=== PATIENT | female | born 1945 | race Caucasian/White ===

== ENCOUNTER 2019-12-22 09:52 | Outpatient (CLI) | payer MEDICARE, SELFPAY ==
[2019-12-22 10:14] LABS: Basophils Percent Auto 0.7 % (0.2-1.2); Eosinophils Absolute Auto 0.2 K/mm3 (0-0.3); Hematocrit 42.6 % (37.0-47.0); Hemoglobin 14.1 g/dL (12.0-15.0); Immature Granulocyte Absolute 0.01 K/mm3 (0.00-0.031); Immature Granulocyte Percent A 0.2 % (0-0.5); Lymphocytes Percent Auto 28.3 % (18.3-44.2); Mean Corpuscular HGB Conc 33.1 g/dl (32-36); Mean Corpuscular Hemoglobin 31.5 pg (26-34); Mean Corpuscular Volume 95.3 fl (80-100); Mean Platelet Volume 10.9 fl (7.4-10.4); Monocytes Absolute Auto 0.4 K/mm3 (0.1-0.6); Monocytes Percent Auto 9.7 % (2.6-8.5); Neutrophils Absolute Auto 2.4 K/mm3 (1.3-6.7); Neutrophils Percent Auto 57.1 % (45.5-73.1); Platelet Count Result 204 k/mm3 (150-375); Red Blood Count 4.47 M/mm3 (4.2-5.4); Red Cell Distribution Width 12.2 % (11.5-14.5); White Blood Count 4.2 K/mm3 (4.5-10.0)
[2019-12-22 10:30] LABS: Alanine Aminotransferase 24 U/L (4-35); Albumin Level 4.1 g/dL (3.5-5.1); Alkaline Phosphatase 75 U/L (38-126); Aspartate Amino Transferase 27 U/L (14-36); Bilirubin,Total 0.6 mg/dL (0.2-1.3); Blood Urea Nitrogen 23 mg/dL (7-17); Calcium 8.7 mg/dL (8.4-10.2); Carbon Dioxide 27 mmol/L (22-30); Chloride 108 mmol/L (98-107); Cholesterol 139 mg/dL (0-200); Estimated Glomerular Filt Rate > 60; Glucose 102 mg/dL (65-105); HDL Direct 43 mg/dL; Potassium 4.5 mmol/L (3.4-5.0); Sodium 141 mmol/L (137-145); Triglycerides 88 mg/dL (<150)
[2019-12-22 10:42] LABS: LDL Cholesterol Direct 72 mg/dL
[2019-12-22 11:01] LABS: Thyroid Stimulating Hormone 0.034 uIU/mL (0.465-4.680)
== END 2019-12-22 09:53 | disposition home or self-care (01) ==
PROVIDERS: PCP Family Medicine; Visit Provider Family Medicine
DX: R41.3 Other amnesia (principal); E78.5 Hyperlipidemia, unspecified
CPT/HCPCS: 36415; 80053; 80061; 82607; 84443; 85025

== ENCOUNTER 2019-12-30 09:34 | Outpatient (CLI) | payer MEDICARE, SELFPAY ==
--- NOTE | ~2019-12-30 | DEXA_ITS ---
Bone Density Report Name: Neli Boswell Age: 74 Sex: Female Ethnicity: White Date of : 1945 Indication: postmenopausal; height loss; cancer; hysterectomy; Referring Provider: Kay, Bakari Pro Study: Bone densitometry was performed. Exam Date: December 30, 2019 Accession number: [id number] Bone Density: Region BMD T-score Z-score Classification AP Spine (L1-L4) 1.048 0.0 2.4 Normal Femoral Neck (Left) 0.588 -2.4 -0.3 Osteopenia Total Hip (Left) 0.852 -0.7 1.1 Normal Total Hip Bilateral Avg 0.853 -0.7 1.1 Normal Femoral Neck (Right) 0.597 -2.3 -0.2 Osteopenia Total Hip (Right) 0.852 -0.7 1.1 Normal World Health Organization criteria for BMD impression classify patients as: Normal (T-score at or above -1.0), Osteopenia (T-score between -1.0 and -2.5), or Osteoporosis (T-score at or below -2.5). 10-year Fracture Risk(1): Major Osteoporotic Fracture 15% Hip Fracture 4.5% Reported Risk Factors: [place] (), Neck BMD=0.588, BMI=28.6 (1) FRAX(R) Version 3.08. Fracture probability calculated for an untreated patient. Fracture probability may be lower if the patient has received treatment. Previous Exams: Region Exam Age BMD T-score BMD Change BMD Change Date g/cm2 vs Baseline vs Previous AP Spine(L1-L4) 12/30/2019 74 1.048 0.0 -0.062(-5.6%)# 0.042(4.2%)# 06/23/2009 63 1.006 -0.4 -0.104(-9.4%)* -0.104(-9.4%)* 10/06/2001 56 1.110 0.6 Total Hip(Left) 12/30/2019 74 0.852 -0.7 -0.050(-5.6%)# -0.019(-2.2%)# 06/23/2009 63 0.871 -0.6 -0.031(-3.5%)* -0.031(-3.5%)* 10/06/2001 56 0.902 -0.3 Total Hip(Right) 12/30/2019 74 0.852 -0.7 -0.040(-4.4%)# -0.041(-4.6%)# 06/23/2009 63 0.893 -0.4 0.002(0.2%) 0.002(0.2%) 10/06/2001 56 0.891 -0.4 *Denotes significance at 95% confidence level, LSC for AP Spine = 0.022 g/cm2, LSC for Total Hip = 0.027 g/cm2 Clinical Information Provided by Patient: Has used the following medications: HRT (i.e. estrogen/hormone therapy) Has the following medical conditions: Cancer, Hysterectomy Patient maximum height was 66 Menopause Age: 49 No regular weight bearing exercise Drinks caffeinated beverages Onset of menses at age 12 Number of children 2 Impression: The patient has low bone mass, based on the Left Femoral Neck T-score. The patient has an estimated ten-year risk of hip fracture of 4.5% and an estimated ten-year risk of major fracture of 15%, bas
== END 2019-12-30 09:35 | disposition home or self-care (01) ==
LOC: ANHIMG 09:39
PROVIDERS: PCP Family Medicine; Visit Provider Family Medicine
DX: Z13.820 Encounter for screening for osteoporosis (principal); M85.89 Other specified disorders of bone density and structure, multiple sites
CPT/HCPCS: 77080

== ENCOUNTER 2020-06-27 09:38 | Outpatient (CLI) | payer MEDICARE, SELFPAY ==
[2020-06-27 11:10] LABS: Alanine Aminotransferase 26 U/L (4-35); Albumin Level 4.1 g/dL (3.5-5.1); Alkaline Phosphatase 68 U/L (38-126); Anion Gap 8 mmol/L (8-16); Aspartate Amino Transferase 25 U/L (14-36); Bilirubin,Total 0.5 mg/dL (0.2-1.3); Blood Urea Nitrogen 16 mg/dL (7-17); Calcium 9.1 mg/dL (8.4-10.2); Carbon Dioxide 27 mmol/L (22-30); Chloride 107 mmol/L (98-107); Estimated Glomerular Filt Rate > 60; Glucose 102 mg/dL (65-105); Phosphorus 4.3 mg/dL (2.5-4.5); Potassium 4.5 mmol/L (3.4-5.0); Sodium 142 mmol/L (137-145)
[2020-06-27 11:22] LABS: Parathyroid Intact 45.9 pg/mL (7.5-53.5)
[2020-06-27 11:39] LABS: Free T4 Free Thyroxine 1.38 ng/mL (0.78-2.19); Vitamin D 25 Hydroxy 56.9 ng/mL
[2020-06-27 11:41] LABS: Thyroid Stimulating Hormone < 0.015 uIU/mL (0.465-4.680)
== END 2020-06-27 09:39 | disposition home or self-care (01) ==
PROVIDERS: Visit Provider Internal Medicine Endocrinology, Diabetes & Metabolism
DX: E03.9 Hypothyroidism, unspecified (principal); M85.80 Other specified disorders of bone density and structure, unspecified site
CPT/HCPCS: 36415; 80053; 82306; 83970; 84100; 84439; 84443; 84481

== ENCOUNTER 2024-03-31 09:04 | Outpatient (CLI) | payer MEDICARE, SELFPAY ==
--- NOTE | 2024-03-31 09:40 | ECG_ITS ---
Test Date: 2024-03-31 09:55:32 Measurements Intervals [place] Rate: 66 P: 28 TN: 201 QRS: -16 QRSD: 85 T: 2 QT: 419 QTc: 439 Interpretive Statements SINUS RHYTHM MODERATE VOLTAGE CRITERIA FOR LVH, CONSIDER NORMAL VARIANT [MEETS CRITERIA IN ONE OF: R(aVL), S(V1), R(V5), R(V5/V6)+S(V1)] No previous ECG available for comparison Electronically Signed On 03-31-2024 14:49:32 CDT by Pelon Christina M.D.
[2024-03-31 09:56] LABS: Basophils Percent Auto 0.8 % (0.2-1.2); Eosinophils Absolute Auto 0.2 K/mm3 (0-0.3); Eosinophils Percent Auto 4.7 % (0-4.4); Hematocrit 44.7 % (37.0-47.0); Hemoglobin 14.9 g/dL (12.0-15.0); Immature Granulocyte Absolute 0.01 K/mm3 (0.00-0.031); Immature Granulocyte Percent A 0.3 % (0-0.5); Lymphocytes Percent Auto 24.9 % (18.3-44.2); Mean Corpuscular HGB Conc 33.3 g/dl (32-36); Mean Corpuscular Hemoglobin 32.1 pg (26-34); Mean Corpuscular Volume 96.3 fl (80-100); Mean Platelet Volume 11.7 fl (7.4-10.4); Monocytes Absolute Auto 0.3 K/mm3 (0.1-0.6); Monocytes Percent Auto 9.4 % (2.6-8.5); Neutrophils Absolute Auto 2.2 K/mm3 (1.3-6.7); Neutrophils Percent Auto 59.9 % (45.5-73.1); Platelet Count Result 190 k/mm3 (150-375); Red Blood Count 4.64 M/mm3 (4.2-5.4); Red Cell Distribution Width 12.3 % (11.5-14.5); White Blood Count 3.6 K/mm3 (4.5-10.0)
[2024-03-31 10:21] LABS: Alanine Aminotransferase 24 U/L (6-35); Albumin Level 4.3 g/dL (3.5-5.1); Alkaline Phosphatase 79 U/L (38-126); Anion Gap 10 mmol/L (4-12); Aspartate Amino Transferase 29 U/L (14-36); Bilirubin,Total 0.7 mg/dL (0.2-1.3); Blood Urea Nitrogen 15 mg/dL (7-17); Calcium 9.2 mg/dL (8.4-10.2); Carbon Dioxide 27 mmol/L (22-30); Chloride 103 mmol/L (98-107); Cholesterol 177 mg/dL (0-200); Estimated Glomerular Filt Rate > 60; Glucose 98 mg/dL (65-110); HDL Direct 56 mg/dL; Potassium 4.4 mmol/L (3.4-5.0); Sodium 140 mmol/L (137-145); Triglycerides 117 mg/dL (<150)
[2024-03-31 10:32] LABS: LDL Cholesterol Direct 89 mg/dL
[2024-03-31 10:39] LABS: Free T4 Free Thyroxine 1.37 ng/mL (0.78-2.19)
[2024-03-31 10:51] LABS: Thyroid Stimulating Hormone 0.172 uIU/mL (0.465-4.680)
== END 2024-03-31 09:05 | disposition home or self-care (01) ==
LOC: ANHLAB 09:06
PROVIDERS: PCP Family Medicine; Visit Provider Student in an Organized Health Care Education/Training Program
DX: E78.5 Hyperlipidemia, unspecified (principal); Z01.818 Encounter for other preprocedural examination; E03.9 Hypothyroidism, unspecified; G47.00 Insomnia, unspecified; R53.83 Other fatigue
CPT/HCPCS: 36415; 80053; 80061; 84439; 84443; 85025; 93005

== ENCOUNTER 2024-04-19 18:07 | Observation (INO) | payer MEDICARE, SELFPAY ==
--- NOTE | ~2024-04-19 | XR_ITS ---
Portable chest x-ray Comparison: 07/09/2013. Clinical History: Left TKR Findings: Lungs are clear, without focal consolidation or pleural effusion. Cardiomediastinal silho uette is stable. Bones and soft tissues are unremarkable. Impression: Clear lungs. Reviewed, dictated and finalized at location . Impression: Clear lungs.
--- NOTE | ~2024-04-19 | XR_ITS ---
Supine and upright views of the abdomen Clinical history: Nausea and vomiting Findings: Bowel gas pattern is nonspecific. No evidence for obstruction or free air. No abnormal mass lesion or calcification is seen. Osseous structures are intact. Impression: No significant abnormality is seen. Reviewed, dictated and finalized at [facility]. Impression: No significant abnormality is seen.
--- NOTE | ~2024-04-19 | US_ITS ---
EXAMINATION: US venous doppler [facility] DATE: 04/20/2024 16:39 INDICATION: Lower limb pain and swelling. TECHNIQUE: Grayscale ultrasound images without and with compression and Doppler ultrasound images of the left lower extremity veins were obtained. COMPARISON: None. FINDINGS: The visualized portions of left common femoral vein, profunda (deep) femoral vein, femoral vein, popl iteal vein, peroneal veins, posterior tibial veins, and greater saphenous vein outflow are patent. IMPRESSION: 1. No deep venous thrombosis. Reviewed, dictated and finalized at location A.
[2024-04-19 18:07] VITALS: BP 153/74; PULSE 84; RESP 18; TEMP 36.4; O2SAT 97
--- NOTE | 2024-04-19 21:40 | ED.NAVMDI ---
HPI - Nausea/Vomiting/Diarrhea General Chief complaint: Nausea/Vomiting/Diarrhea <Yarely Sinha PA-C - Last Filed: 04/20/24 02:34> Stated complaint: vomiting-recent knee surgery <Yarely Sinha PA-C - Last Filed: 04/20/24 02:34> Time Seen by Provider: 04/19/24 21:40 <Yarely Sinha PA-C - Last Filed: 04/20/24 02:34> Focused HPI: This is a 78 year old female that presents to the ER for nausea and vomiting. Reports she has not been able to keep anything down since this afternoon. Reports she had a knee replacement a couple of days ago at [facility] with Dr. Stiven Brody. She has not had a bowel movement since surgery. Reports subjective fevers. GENERAL: Uncomfortable-appearing, well-nourished, actively vomiting HEAD: Normocephalic, atraumatic. CHEST: Clear to auscultation. ?No respiratory distress. HEART: Regular rate and rhythm.? NEURO: ?Alert and oriented x3. Patient screened in triage and initial orders placed.? ?Additional care and disposition to be based upon?diagnostic testing and treatment. <Yarely Sinha PA-C - Last Filed: 04/20/24 02:34> Focused HPI: This is a 78 year old female that presents to the ER for nausea and vomiting. Reports she has not been able to keep anything down since this afternoon. Reports she had a knee replacement a couple of days ago at [facility] with Dr. Stiven Brody. She has not had a bowel movement since surgery. Reports subjective fevers. denies any abdominal pain. Patient states that she took her Happy pills in the morning on an empty stomach and is concerned that is what precipitated her nausea and vomiting. Patient tried to take an oral Zofran pill prior to arrival but ended up vomiting the pill back up. GENERAL: Uncomfortable-appearing, well-nourished, actively vomiting HEAD: Normocephalic, atraumatic. CHEST: Clear to auscultation. ?No respiratory distress. HEART: Regular rate and rhythm.? NEURO: ?Alert and oriented x3. Patient screened in triage and initial orders placed.? ?Additional care and disposition to be based upon?diagnostic testing and treatment. <Yeison Starkey MD - Last Filed: 04/20/24 01:34> Related Data Home medications: Home Medications Medication Instructions Recorded Confirmed levothyroxine 25 mcg tablet 25 mcg PO DAILY 06/26/23 04/20/24 (Synthroid) melatonin 3 mg capsule 3 mg PO QHS 10/11/23 04/20/24 celecoxib 200 mg capsule 200 mg PO BID 04/20/24 04/20/24 magnesium 200 mg tablet 200 mg PO HS 04/20/24 04/20/24 ondansetron HCl 4 mg tablet 4 mg PO Q4H PRN Nausea And Vomiting 04/20/24 04/20/24 oxycodone 5 mg tablet 5 mg PO Q4H PRN Pain 04/20/24 04/20/24 <Yarely Sinha PA-C - Last Filed: 04/20/24 02:34> Allergies/Adverse reactions: Allergies Allergy/AdvReac Type Severity Reaction Status Date / Time milk Allergy Unknown Headache Verified 04/19/24 18:07 <Yarely Sinha PA-C - Last Filed: 04/20/24 02:34> Review of Systems Review of Systems: All systems are reviewed and are negative unless stated otherwise in the HPI. <Yeison Starkey MD - Last Filed: 04/20/24 01:34> PMFSH Past Medical History Medical History: Medical History Arthritis Bilateral knee pain Breast cancer Diverticulitis large intestine Gastric ulcer GERD (gastroesophageal reflux disease) History of breast cancer Hyperlipidemia Hypothyroid Insomnia Osteopenia Thyroid disorder <Yarely Sinha PA-C - Last Filed: 04/20/24 02:34> Family History Family History: Family History Mother Diabetes mellitus Hypertension Stomach cancer Father Heart disease Grandparent Heart disease Grandparent Diabetes mellitus Heart disease <Yarely Sinha PA-C - Last Filed: 04/20/24 02:34> Social History Social History: Social History Smoking status: Form
[2024-04-19] MEDS: ONDANSETRON INJ 4 MG/2 ML VIAL IV PUSH ×2 (21:46→23:30)
[2024-04-19 21:55] LABS: Basophils Percent Auto 0.1 % (0.2-1.2); Eosinophils Percent Auto 0.4 % (0-4.4); Hematocrit 38.1 % (37.0-47.0); Hemoglobin 12.6 g/dL (12.0-15.0); Immature Granulocyte Absolute 0.03 K/mm3 (0.00-0.031); Immature Granulocyte Percent A 0.4 % (0-0.5); Lymphocytes Percent Auto 8.9 % (18.3-44.2); Mean Corpuscular HGB Conc 33.1 g/dl (32-36); Mean Corpuscular Hemoglobin 32.3 pg (26-34); Mean Corpuscular Volume 97.7 fl (80-100); Mean Platelet Volume 11.3 fl (7.4-10.4); Monocytes Absolute Auto 0.4 K/mm3 (0.1-0.6); Monocytes Percent Auto 5.5 % (2.6-8.5); Neutrophils Absolute Auto 6.6 K/mm3 (1.3-6.7); Neutrophils Percent Auto 84.7 % (45.5-73.1); Platelet Count Result 205 k/mm3 (150-375); Red Cell Distribution Width 12.8 % (11.5-14.5); White Blood Count 7.8 K/mm3 (4.5-10.0)
[2024-04-19 22:06] LABS: Alanine Aminotransferase 34 U/L (6-35); Albumin Level 4.4 g/dL (3.5-5.1); Alkaline Phosphatase 119 U/L (38-126); Anion Gap 12 mmol/L (4-12); Aspartate Amino Transferase 54 U/L (14-36); Bilirubin,Total 0.8 mg/dL (0.2-1.3); Blood Urea Nitrogen 15 mg/dL (7-17); Calcium 8.9 mg/dL (8.4-10.2); Carbon Dioxide 25 mmol/L (22-30); Chloride 99 mmol/L (98-107); Estimated CRCL calculation 60 ml/min; Estimated Glomerular Filt Rate > 60; Glucose 122 mg/dL (65-110); Lipase 43 U/L (23-300); Magnesium 2.3 mg/dL (1.6-2.3); Potassium 4.4 mmol/L (3.4-5.0); Sodium 136 mmol/L (137-145)
[2024-04-19 22:07] LABS: Lactic Acid Reflex 1.5 mmol/L (0.7-2.0)
[2024-04-19 23:00] VITALS: PULSE 93; RESP 15; O2SAT 100
[2024-04-19 23:01] VITALS: BP 165/74; PULSE 82; RESP 20; O2SAT 98
--- NOTE | 2024-04-19 23:07 | ECG_ITS ---
Test Date: 2024-04-19 23:27:26 Measurements Intervals [place] Rate: 80 P: 70 IN: 193 QRS: 2 QRSD: 84 T: 22 QT: 386 QTc: 446 Interpretive Statements SINUS RHYTHM POSSIBLE LEFT ATRIAL ENLARGEMENT [-0.1mV P WAVE IN V1/V2] POSSIBLE LEFT VENTRICULAR HYPERTROPHY [VOLTAGE CRITERIA PLUS LAE OR QRS WIDENING] ABNORMAL ECG Compared to ECG 03/31/2024 09:55:32 No significant changes Electronically Signed On 04-21-2024 07:14:33 CDT by Denny Hines M.D.
[2024-04-19 23:15] VITALS: PULSE 79; RESP 13; O2SAT 98
[2024-04-19 23:16] VITALS: BP 153/66; PULSE 78; RESP 14; O2SAT 95
[2024-04-19] MEDS: SODIUM CHLORIDE 0.9% IV 1,000 ML 999 ML IV CONT (23:30)
[2024-04-20] MEDS: METOCLOPRAMIDE HCL INJ 10 MG/2 ML VIAL IV PUSH (00:36)
[2024-04-20] MEDS: MORPHINE SULFATE (*CRX) 2 MG/ML INJ IV PUSH (00:36)
--- NOTE | 2024-04-20 01:14 | PM.IMHP ---
H&P: HPI History of Present Illness Date/Time: 04/20/24 01:14 Chief Complaint: n/v Narrative: This is a 78-year-old female with past medical history significant for DJD patient is status post total left knee replacement comes to the hospital due to intractable pain nausea vomiting leg swelling. Patient denies any shortness of breath, cough, fevers, rigors, chills. In emergency room patient received supportive medication however unable to tolerate p.o. has been placed in observation for further evaluation management and treatment. Portable chest x-ray Comparison: 07/09/2013. Clinical History: Left TKR Findings: Lungs are clear, without focal consolidation or pleural effusion. Cardiomediastinal silhouette is stable. Bones and soft tissues are unremarkable. Impression: Clear lungs. Supine and upright views of the abdomen Clinical history: Nausea and vomiting Findings: Bowel gas pattern is nonspecific. No evidence for obstruction or free air. No abnormal mass lesion or calcification is seen. Osseous structures are intact. Impression: No significant abnormality is seen. Review of Systems Review of Systems: Nausea/ vomiting/ intractable pain PMFSH Past Medical History Medical History Arthritis Bilateral knee pain Breast cancer Diverticulitis large intestine Gastric ulcer GERD (gastroesophageal reflux disease) History of breast cancer Hyperlipidemia Hypothyroid Insomnia Osteopenia Thyroid disorder Family History Family History Mother Diabetes mellitus Hypertension Stomach cancer Father Heart disease Grandparent Heart disease Grandparent Diabetes mellitus Heart disease Social History Social History Smoking status: Former smoker Second hand tobacco smoke exposure: No Additional smoking assessment comments: quit approximately 60years ago Alcohol intake: current Drinks per week: 7 Alcohol use details: 1 glass of wine per day Substance use: never Substance use type: does not use Do You Feel Safe in your Home?: Yes Lack of Transportation: No Lack of Food: Never True Current Housing: I Have Housing Concerned About Future Housing: No Difficulty Paying Gas/Electric Bills: No Difficulty Paying for Meds: No Currently Unemployed: No Education: High School Diploma/GED Difficulty w/ Childcare or Family Care: No Spiritual care concerns: No Meds Home Medications and Allergies Home Medications Medication Instructions Recorded Confirmed Type levothyroxine 25 mcg tablet 25 mcg PO DAILY 06/26/23 04/20/24 History (Synthroid) omeprazole 40 mg capsule,delayed 40 mg PO DAILY 1 month #30 caps 10/10/23 04/20/24 Rx release atorvastatin 40 mg tablet 40 mg PO DAILY #90 tabs 10/11/23 04/20/24 Rx melatonin 3 mg capsule 3 mg PO QHS 10/11/23 04/20/24 History celecoxib 200 mg capsule 200 mg PO BID 04/20/24 04/20/24 History magnesium 200 mg tablet 200 mg PO HS 04/20/24 04/20/24 History oxycodone 5 mg tablet 5 mg PO Q4H PRN Pain 04/20/24 04/20/24 History cefdinir 300 mg capsule 300 mg PO Q12H #2 caps 04/21/24 Rx ondansetron HCl 4 mg tablet 4 mg PO Q4H PRN Nausea And 04/21/24 04/20/24 Rx Vomiting #30 tabs Allergies Allergy/AdvReac Type Severity Reaction Status Date / Time milk Allergy Unknown Headache Verified 04/19/24 18:07 Vital Signs Vital Signs - 24 hr 04/19/24 18:07 04/19/24 23:00 04/19/24 23:01 Temperature 97.6 F Pulse Rate 84 93 82 Respiratory Rate 18 15 20 Blood Pressure 153/74 H 165/74 H Pulse Oximetry 97 100 98 Oxygen Delivery Room Air 04/19/24 23:15 04/19/24 23:16 Temperature Pulse Rate 79 78 Respiratory Rate 13 14 Blood Pressure 153/66 H Pulse Oximetry 98 95 Oxygen Delivery Exam Narrative: patient is in stretcher Const
--- NOTE | 2024-04-20 02:28 | ADMGEN ---
This patient, Neli Boswell, was admitted to Medical Room 245-. Patient/family oriented to hospital policies and general routines including ID bracelet, bed and alarms, visiting hours, pain management, procedures, bathroom and other care routines, personal items, smoking policy, room service/diet, and visiting hours. Information on how to activate the Rapid Response Team has been discussed. Patient/Family are encouraged to report perceived risks to care and to ask questions if they do not understand what they are told or what they should do.
[2024-04-20 02:45] VITALS: BMI 27.3
[2024-04-20 03:02] VITALS: BP 161/64; PULSE 87; RESP 16; TEMP 36.4; O2SAT 95
[2024-04-20 06:30] VITALS: BP 142/59; PULSE 91; RESP 16; TEMP 36.4; O2SAT 97
--- NOTE | 2024-04-20 07:07 | PM.IMPN ---
Progress Note: A&P Assessment and Plan (1) Acute nausea with nonbilious vomiting: Code(s): R11.2 - Nausea with vomiting, unspecified Status: Acute Assessment and Plan: likely secondary to pain medication vs constipation vs UTI? vs GERD IV fluids at 100 ml per hour Zofran prn but does not feel this is working, will trial Compazine KUB is not concerning for obstruction, impaction Regular diet as tolerated Protonix BID (2) Status post total left knee replacement: Code(s): Z96.652 - Presence of left artificial knee joint Status: Acute Assessment and Plan: s/p total left knee replacement at [facility] Surgical island dressing is in place. Clean, dry and intact PRN pain medications with Vardaman. Can try tramadol to see if this does not cause as much nausea PT/OT consulted, appreciate recs She has quite a bit of ecchymosis and edema to her left thigh. Venous US ruled out DVT. Monitor H/H (3) Urinary (tract) obstruction: Code(s): N13.9 - Obstructive and reflux uropathy, unspecified Status: Acute Assessment and Plan: Urinary tract infection with nitrates and +4 bacteria on U/A. She is also nauseated, dizzy, and feels confused. Will give Rocephin and transition to cefdinir urine culture added Plan DVT prophylaxis: Glycemic control: na Code Status: full code Disposition: 78-year-old female recently had a left total knee replacement. She comes in with nausea, vomiting and unable to keep p.o. intake down. She is getting IV fluids and IV antibiotic for possible UTI. UA had nitrates and +4 bacteria. Medication reconciliation obtained via the following: Nurse completed on admission The file time of this note does not necessarily represent the time the patient was seen. Subjective Date/time seen: 04/20/24 07:07 Interval history: This is a 78-year-old female with a past medical history significant for degenerative disc disease, arthritis, breast cancer, hyperlipidemia, hypothyroidism, GERD with gastric ulcer, and recent total left knee replacement who presented to the emergency room with complaints of nausea. The patient states since she has returned home from her total knee replacement she has had nausea and has not been unable to keep fluids or food down. She states she had her knee replacement at [facility] requiring 1 overnight stay which was uneventful. She is unsure if she had a urinary catheter placed for her surgery. It is unclear if the nausea is related to her pain medication versus underlying UTI.. She states that she has had Vardaman in the past it caused similar symptoms. She also reports being dizzy and having difficulty finding her words which she attributes to the stress of being in the hospital. Her UA did have positive nitrates and +4 bacteria. Her left knee is swollen with surgical dressing in place which is clean dry and intact. She does have extensive ecchymosis throughout her left thigh. She denies fever but reports subjective chills. She states she feels dry. She is thirsty in her mouth feels like cotton. She denies headache, chest pain, shortness of breath, abdominal pain, or dysuria. Review of Systems Review of Systems: Nausea/ vomiting/ intractable pain All systems reviewed & are unremarkable except as noted in HPI and below Exam Narrative: General: appears as though she does not feel well, appears dry, appears stated age. HEENT: normocephalic, atraumatic. Mucous membranes moist. EOMI, PERRLA, bilateral sclera anicteric, no conjunctival injection. Neck supple without JVD, lymphadenopathy, or bruit. Respiratory: clear to auscultation bilaterally. No rales/rhonic/wheezes. Cardiovascular: Regular rate and rhythm, normal S1-S2 upon auscultation. No murmurs, rubs, or clicks. PMI is nondisplaced, capillary refill less
[2024-04-20 07:11] LABS: Add Urine Microscopic? YES; Appearance Urine Cloudy (Clear); Bacteria Urine 4+ /hpf; Bilirubin Urine Negative (Negative); Blood Urine Negative (Negative); Color Urine Yellow (Yellow); Glucose Urine UA Negative (Negative); Ketones Urine Negative (Negative); Leukocyte Esterase Ur Negative LEU/UL (Negative); Nitrate Urine Positive (Negative); Non Pathogenic Casts 0-2; Protein Urine Negative (Negative); RBC Urine 0-2 /hpf (0-2); Specific Grav Ur 1.013 (1.001-1.035); Squamous Epithelial Cell Urine None Seen /hpf (Few); Urobilinogen Urine 0.2 mg/dL (<2.0); WBC Urine 0-5 /hpf (0-3); pH Urine 6.5 (5.0-9.0)
[2024-04-20] MEDS: CEFDINIR 300 MG CAPSULE PO (09:50)
[2024-04-20] MEDS: ATORVASTATIN 40 MG TABLET PO (09:50)
[2024-04-20] MEDS: PANTOPRAZOLE 40 MG TABLET PO ×2 (09:50→17:01)
[2024-04-20] MEDS: oxyCODONE HCL (*CRX) 5 MG TAB IR PO (09:55)
[2024-04-20 10:08] VITALS: O2SAT 95
[2024-04-20] MEDS: ONDANSETRON INJ 4 MG/2 ML VIAL IV PUSH (12:00)
[2024-04-20] MEDS: SODIUM CHLORIDE 0.9% IV 1,000 ML 100 ML IV CONT (13:33)
[2024-04-20 14:00] VITALS: BP 140/60; PULSE 88; RESP 16; TEMP 36.5; O2SAT 96
[2024-04-20] MEDS: BELLADONNA ALK/PHENOB ELIX 10 ML, MAG HYDROX/ALUMINUM HYD/SIMETH 30 ML, LIDOCAINE HCL 2... PO (14:41)
[2024-04-20] MEDS: ENOXAPARIN 40 MG/0.4 ML SYRINGE SUB-Q (14:46)
[2024-04-20 20:32] VITALS: BP 149/61; PULSE 71; RESP 16; TEMP 36.4; O2SAT 94
[2024-04-20] MEDS: MAGNESIUM OXIDE 200 MG TABLET PO (21:10)
[2024-04-20] MEDS: MELATONIN 3 MG TABLET PO (21:10)
[2024-04-21] MEDS: SODIUM CHLORIDE 0.9% IV 1,000 ML 100 ML IV CONT (00:42)
[2024-04-21 05:17] VITALS: BP 137/64; PULSE 83; RESP 16; TEMP 36.4; O2SAT 93
[2024-04-21] MEDS: LEVOTHYROXINE SODIUM 25 MCG TABLET PO (05:54)
[2024-04-21] MEDS: ATORVASTATIN 40 MG TABLET PO (08:48)
[2024-04-21] MEDS: ENOXAPARIN 40 MG/0.4 ML SYRINGE SUB-Q (08:49)
[2024-04-21] MEDS: PANTOPRAZOLE 40 MG TABLET PO (08:49)
[2024-04-21 09:56] LABS: Basophils Percent Auto 0.5 % (0.2-1.2); Eosinophils Absolute Auto 0.2 K/mm3 (0-0.3); Eosinophils Percent Auto 3.8 % (0-4.4); Hematocrit 34.6 % (37.0-47.0); Immature Granulocyte Absolute 0.03 K/mm3 (0.00-0.031); Immature Granulocyte Percent A 0.5 % (0-0.5); Mean Corpuscular HGB Conc 31.8 g/dl (32-36); Mean Corpuscular Volume 100.6 fl (80-100); Mean Platelet Volume 11.3 fl (7.4-10.4); Monocytes Absolute Auto 0.4 K/mm3 (0.1-0.6); Monocytes Percent Auto 6.7 % (2.6-8.5); Neutrophils Percent Auto 69.5 % (45.5-73.1); Platelet Count Result 206 k/mm3 (150-375); Red Blood Count 3.44 M/mm3 (4.2-5.4); Red Cell Distribution Width 13.2 % (11.5-14.5); White Blood Count 5.8 K/mm3 (4.5-10.0)
[2024-04-21 10:13] LABS: Magnesium 2.1 mg/dL (1.6-2.3); Phosphorus 2.8 mg/dL (2.5-4.5)
[2024-04-21 10:14] LABS: Alanine Aminotransferase 21 U/L (6-35); Albumin Level 3.7 g/dL (3.5-5.1); Alkaline Phosphatase 86 U/L (38-126); Anion Gap 10 mmol/L (4-12); Aspartate Amino Transferase 29 U/L (14-36); Bilirubin,Total 0.7 mg/dL (0.2-1.3); Blood Urea Nitrogen 12 mg/dL (7-17); Calcium 8.4 mg/dL (8.4-10.2); Carbon Dioxide 25 mmol/L (22-30); Chloride 102 mmol/L (98-107); Estimated CRCL calculation 53 ml/min; Estimated Glomerular Filt Rate > 60; Glucose 136 mg/dL (65-110); Sodium 137 mmol/L (137-145)
--- NOTE | 2024-04-21 11:34 | PM.DS ---
DS: Admitting Diagnosis Discharge Date 04/21 Admitting Diagnosis nausea DS: Discharge Diagnosis Discharge Diagnosis (1) Acute nausea with nonbilious vomiting: Code(s): R11.2 - Nausea with vomiting, unspecified Status: Acute Assessment and Plan: likely secondary to pain medication vs constipation vs UTI? vs GERD IV fluids at 100 ml per hour Zofran prn but does not feel this is working, will trial Compazine KUB is not concerning for obstruction, impaction Regular diet as tolerated Protonix BID (2) Status post total left knee replacement: Code(s): Z96.652 - Presence of left artificial knee joint Status: Acute Assessment and Plan: s/p total left knee replacement at [facility] Surgical island dressing is in place. Clean, dry and intact PRN pain medications with Nicholson. Can try tramadol to see if this does not cause as much nausea PT/OT consulted, appreciate recs She has quite a bit of ecchymosis and edema to her left thigh. Venous US ruled out DVT. Monitor H/H (3) Urinary (tract) obstruction: Code(s): N13.9 - Obstructive and reflux uropathy, unspecified Status: Acute Assessment and Plan: Urinary tract infection with nitrates and +4 bacteria on U/A. She is also nauseated, dizzy, and feels confused. Will give Rocephin and transition to cefdinir urine culture added Plan DVT prophylaxis: Glycemic control: na Code Status: full code Disposition: 78-year-old female recently had a left total knee replacement. She comes in with nausea, vomiting and unable to keep p.o. intake down. She is getting IV fluids and IV antibiotic for possible UTI. UA had nitrates and +4 bacteria. Medication reconciliation obtained via the following: Nurse completed on admission The file time of this note does not necessarily represent the time the patient was seen. DS: Summary Hospital Course Reason for hospitalization: nausea, uti Hospital Course: This is a 78-year-old female with a past medical history significant for degenerative disc disease, arthritis, breast cancer, hyperlipidemia, hypothyroidism, GERD with gastric ulcer, and recent total left knee replacement who presented to the emergency room with complaints of nausea. The patient states since she has returned home from her total knee replacement she has had nausea and has not been unable to keep fluids or food down. She states she had her knee replacement at [facility] requiring 1 overnight stay which was uneventful. She is unsure if she had a urinary catheter placed for her surgery. It is unclear if the nausea is related to her pain medication versus underlying UTI.. She states that she has had Nicholson in the past it caused similar symptoms. She also reports being dizzy and having difficulty finding her words which she attributes to the stress of being in the hospital. Her UA did have positive nitrates and +4 bacteria. Her left knee is swollen with surgical dressing in place which is clean dry and intact. She does have extensive ecchymosis throughout her left thigh. She denies fever but reports subjective chills. She states she feels dry. She is thirsty in her mouth feels like cotton. She denies headache, chest pain, shortness of breath, abdominal pain, or dysuria. She received IV fluids, zofran, and GI cocktail. There were also concerns for UTI so she was started on antibiotics. Nausea was thought to be secondary to gastritis from recent aspirin for DVT prophylaxis vs side effect of pain medication vs UTI. She stopped taking the pain medication, took the GI cocktail, and was given antibiotics. It is unclear what worked but she is feeling well today and is ready to go home. Overall she did well and will discharge in stable condition with home health for incision checks and PT/OT for continued strengthening aft
[2024-04-21] MEDS: ACETAMINOPHEN 500 MG TABLET 1000 MG PO (12:27)
--- NOTE | 2024-04-21 13:00 | PCPTNOTE ---
On 04/21/24, the student, [Shira Travis], provided care and completed [facility] documentation on this patient. I have reviewed the student's documentation and agree with the findings.
--- NOTE | 2024-04-21 13:55 | PC.NURSE ---
On 04/21/24, the students, [Lainey Cummings and Masood Castellano], provided care and completed [facility] documentation on this patient. I have reviewed the student's documentation and agree with the findings.
== END 2024-04-21 13:45 | disposition home health service (06) ==
LOC: ANHED 04-20 01:34 → ANH2MED 04-20 06:57
PROVIDERS: Nurse Practitioner Acute Care; Admitting Provider Internal Medicine; Emergency Provider Emergency Medicine; PCP Family Medicine; Visit Provider Family Medicine
DX: R11.2 Nausea with vomiting, unspecified (principal); N13.9 Obstructive and reflux uropathy, unspecified; M79.89 Other specified soft tissue disorders; Z96.652 Presence of left artificial knee joint; E03.9 Hypothyroidism, unspecified; K21.9 Gastro-esophageal reflux disease without esophagitis; Z85.3 Personal history of malignant neoplasm of breast
CPT/HCPCS: 36415; 71045; 74018; 80053; 81001; 83605; 83690; 83735; 84100; 85025; 87086; 93005; 93971; 96361; 96365; 96375; 96376; 97161; 97165; 99285; A9270; G0378; J0696; J1650; J2270; J2405; J2765; J7030

== ENCOUNTER 2024-05-20 10:41 | Outpatient (CLI) | payer MEDICARE, SELFPAY ==
--- NOTE | ~2024-05-20 | XR_ITS ---
XR humerus RT Ordering provider: Monica Kim, [place] History: . RIGHT HUMERUS BONE SHAFT PAIN, FALL 2 WKS AGO . Comparison: None. FINDINGS: BONES: No acute fracture or dislocation. JOINT SPACES: Normal. SOFT TISSUES: Normal. IMPRESSION: No acute osseous abnormality right humerus. Reviewed, dictated and finalized at location A.
== END 2024-05-20 10:42 | disposition home or self-care (01) ==
PROVIDERS: PCP Family Medicine; Visit Provider Chiropractor
DX: M79.631 Pain in right forearm (principal)
CPT/HCPCS: 73060

== ENCOUNTER 2024-05-21 15:41 | Inpatient (IN) | payer MEDICARE, SELFPAY ==
[2024-05-21] VITALS (7 sets, daily range): BP systolic 161–183; BP diastolic 70–101; PULSE 86–97; RESP 14–20; TEMP 36.4; O2SAT 97–100
--- NOTE | ~2024-05-21 | MR_ITS ---
Procedure: MR brain/brain stem wo con Ordering provider: Vonda Bowman History: . rule out TIA/CVA . Comparison: None Technique: MRI brain was performed without contrast. FINDINGS: BONES: Normal. CRANIOCERVICAL JUNCTION: normal. PITUITARY: Normal. MAJOR INTRACRANIAL VESSELS: Normal flow void. OPTIC NERVES AND CRANIAL NERVES VII AND VIII COMPLEXES: Grossly normal. BRAIN PARENCHYMA AND CSF SPACES: Mild nonspecific T2 white matter hyperintensities are seen in a nicola ateral periventricular and deep white matter distribution which are likely related to chronic ischemi c small vessel disease. Mild diffuse cortical atrophy. The brainstem and cerebellum are normal. No ac standing rock or chronic intracranial hemorrhage. No extra axial fluid collections. Diffusion weighted and ADC mapping images reveal no recent ischemia. No midline shift or mass effect. PARANASAL SINUSES: Normal. MASTOIDS: Normal SUPERFICIAL/SURROUNDING SOFT TISSUES: Normal. IMPRESSION: 1. Mild leukoaraiosis. 2. No acute intracranial findings. Reviewed, dictated and finalized at location A.
--- NOTE | ~2024-05-21 | CT_ITS ---
EXAMINATION: CT abdomen pelvis w con DATE: 05/21/2024 18:27 INDICATION: n/v, pain TECHNIQUE: Computed tomography (CT) of the abdomen and pelvis was performed with 100 mL Omnipaque-350 intravenous contrast. Automated exposure control and iterative reconstruction technique were employe d. The dose-length product was 514.94 mGy-cm. COMPARISON: None. FINDINGS: Lower thorax: Minimal bibasilar atelectasis/scar. Calcified right lower lobe granuloma. Aortic valve and coronary artery calcifications. Liver: Normal. Biliary/Gallbladder: Gallbladder is normal. No bile duct dilation. Pancreas: 8mm cystic lesion in the tail the pancreas. Spleen: Normal. Adrenals:No mass. Kidneys: No suspicious mass, obstructing stone, or hydronephrosis. Simple right midpole cyst and nelia tional subcentimeter hypodensities, too small to characterize but also likely represent cysts. GI tract: Small hiatal hernia. Mild distal esophageal and gastric wall edema. No small or large bowel dilation. Normal appendix. Diverticulosis without diverticulitis. Mesentery/Peritoneum: No ascites, mass, or free air. Retroperitoneum: No mass. Atherosclerotic abdominal aortic and/or arterial calcifications. Pelvis: Moderately distended urinary bladder. Absent uterus. Ovaries not confidently identified. Soft Tissues: Soft tissues and body wall unremarkable. Bones: No acute osseous finding. Grade 1 anterolisthesis at L4-5 with moderate central canal stenosi s IMPRESSION: Mild esophagitis/gastritis. 8 mm pancreatic tail cyst, recommend follow-up in 2 years to determine stability. Reviewed, dictated and finalized at location K. IMPRESSION: Mild esophagitis/gastritis. 8 mm pancreatic tail cyst, recommend follow-up in 2 years to determine stabilit y.
--- NOTE | ~2024-05-21 | CT_ITS ---
CTA brain carotid Ordering provider: Vonda Bowman APRN History: . Dizziness . Comparison: Technique: CT angiogram head and neck was performed following timed intravenous injection of contrast . Thin slice axial images and reformatted coronal images were obtained. Three dimensional reformatted images of the brain were also obtained using a [employer] workstation. Radiation reduction technique utilized. The dose-length product was 931.57 mGy-cm. 100 mL Omnipaque 3 50 was given IV. FINDINGS: HEAD: --ANTERIOR AND MIDDLE CEREBRAL ARTERIES AND BRANCHES: Normal caliber and contour. --INTERNAL CAROTID ARTERIES: Severe atheromatous disease with severe stenosis of the right supraclino id carotid artery. --BASILAR ARTERY AND BRANCHES: Small caliber and normal contour. No atheromatous disease. Left vertebral artery is demonstrated the right is markedly attenuated. --POSTERIOR CEREBRAL ARTERIES: Normal caliber and contour --POSTERIOR COMMUNICATING ARTERIES: Both visualized and continues as posterior cerebral arteries --ANEURYSM: None visualized. --BRAIN: Please refer to report of CT head performed the same day. --BONES AND SUPERFICIAL SOFT TISSUES: Please refer to report of CT head performed the same day. --PARANASAL SINUSES AND MASTOIDS: Please refer to report of CT head done the same day. NECK: --RIGHT CERVICAL CAROTID SYSTEM: Mild atheromatous disease of the carotid bulb and proximal internal carotid artery without significant stenosis. Percent stenosis per NASCET criteria is 20% No carotid dissection. Otherwise, no significant atheromatous disease or stenosis of the cervical carotid system . --LEFT CERVICAL CAROTID SYSTEM: Mild atheromatous disease of the carotid bulb and proximal internal c arotid artery without significant stenosis. Percent stenosis per NASCET criteria is 20%. No carotid dissection. Otherwise, no significant atheromatous disease or stenosis of the cervical carotid system. --VERTEBRAL ARTERIES: Dominant left vertebral artery with bilateral small caliber of the right. . --VISUALIZED AORTIC ARCH AND BRANCHING VESSELS: Mild atheromatous disease but no significant stenosis . --SOFT TISSUES: Multinodular thyroid is seen in the enlarged left thyroid lobe. Multiple small nodule s are seen in the right lobe of the thyroid. --CERVICAL SPINE: Age appropriate degenerative changes. Minimal anterolisthesis at the level of L4-5. IMPRESSION: CTA neck. Percent stenosis per NASCET criteria is 20% bilaterally. Markedly attenuated right verteb ral artery. No evidence of intracranial vascular occlusion seen. Significant stenosis of the right internal carotid artery in the supraclinoid area. Reviewed, dictated and finalized at location A. IMPRESSION: CTA neck. Percent stenosis per NASCET criteria is 20% bilaterally. Markedly a ttenuated right vertebral artery. No evidence of intracranial vascular occlusion seen. Significant stenosis of the right internal carotid artery in the supraclinoid a cece.
--- NOTE | ~2024-05-21 | CT_ITS ---
EXAMINATION: CT brain wo con DATE: 05/21/2024 22:24 INDICATION: vertigo . TECHNIQUE: Computed tomography (CT) of the head was performed without intravenous contrast. The mA wa s adjusted according to patient size. Iterative reconstruction technique was employed. The dose-lengt h product was 681.00 mGy-cm. COMPARISON: None. FINDINGS: No acute intracranial hemorrhage or extra-axial fluid collection. No hydrocephalus, mass, or herniation. No acute ischemic infarct. Unremarkable dural venous sinus attenuation. No acute osseous abnormality. The aerated spaces are clear. Mild atrophy and chronic white matter change. Atherosclerotic intracranial calcification. Old bilater al lacunar infarcts. Bilateral lens replacements. IMPRESSION: No acute intracranial process. Reviewed, dictated and finalized at location K.
--- NOTE | 2024-05-21 15:58 | ED.NAVMDI ---
HPI - Nausea/Vomiting/Diarrhea General Chief complaint: Nausea/Vomiting/Diarrhea <Reyna Kidd PA-C - Last Filed: 05/21/24 19:00> Stated complaint: CHRONIC VOMITING <Reyna Kidd PA-C - Last Filed: 05/21/24 19:00> Time Seen by Provider: 05/21/24 15:58 <Reyna Kidd PA-C - Last Filed: 05/21/24 19:00> Focused HPI: Patient is a 78 y/o female who presents to the ED with c/o N/V. Reports she developed vomiting around 7pm yesterday. States she has been unable to keep down any food or drink. Was seen in urgent care prior to arrival and rx'd zofran and tried taking this w/o relief. Also reports dizziness, described as though the room is spinning. Denies history of vertigo. Denies significant abdominal pain. Denies diarrhea, constipation, fevers, cough or cold symptoms, FATIMA, focal weakness/numbness. Patient reports she had similar symptoms 5 weeks ago after a left knee replacement surgery. Symptoms were thought to be attributed to her pain medication. She was admitted to the hospital at that time. GENERAL: Elderly, mildly ill appearing, well-nourished, and in no acute distress. HEAD: Normocephalic, atraumatic. CHEST: Clear to auscultation. ?No respiratory distress. HEART: Regular rate and rhythm.? ABD: No significant tenderness to palpation. Normoactive BS NEURO: ?Alert and oriented x3. Patient screened in triage and initial orders placed.? ?Additional care and disposition to be based upon?diagnostic testing and treatment. <Reyna Kidd PA-C - Last Filed: 05/21/24 19:00> History of Present Illness HPI Narrative: Agree with HPI. Reports vomiting stomach acid. She is taking omeprazole 40 mg daily. Spinning dizziness with movements of the body/head. No history of vertigo. <Germain Cramer MD - Last Filed: 05/21/24 22:06> Related Data Home medications: Home Medications Medication Instructions Recorded Confirmed levothyroxine 25 mcg tablet 25 mcg PO DAILY 06/26/23 04/20/24 (Synthroid) melatonin 3 mg capsule 3 mg PO QHS 10/11/23 04/20/24 celecoxib 200 mg capsule 200 mg PO BID 04/20/24 04/20/24 magnesium 200 mg tablet 200 mg PO HS 04/20/24 04/20/24 oxycodone 5 mg tablet 5 mg PO Q4H PRN Pain 04/20/24 04/20/24 <ARMANDO Hansen Last Filed: 05/21/24 19:00> Allergies/Adverse reactions: Allergies Allergy/AdvReac Type Severity Reaction Status Date / Time milk Allergy Unknown Headache Verified 05/21/24 16:01 <ARMANDO Hansen Last Filed: 05/21/24 19:00> Review of Systems Review of Systems: All systems reviewed & are unremarkable except as noted in HPI and below <Germain Cramer MD - Last Filed: 05/21/24 22:06> Constitutional: Constitutional: Reports no additional constitutional complaints <Germain Cramer MD - Last Filed: 05/21/24 22:06> ENT: Reports system reviewed and no additional complaints, except as documented <Germain Cramer MD - Last Filed: 05/21/24 22:06> Cardiovascular: Cardiovascular: Reports no additional cardiovascular complaints <Germain Cramer MD - Last Filed: 05/21/24 22:06> Respiratory: Respiratory: Reports no additional respiratory complaints <Germain Cramer MD - Last Filed: 05/21/24 22:06> Gastrointestinal: Gastrointestinal: Denies abdominal pain, Reports heartburn, Denies diarrhea, Reports nausea and Reports vomiting <Germain Cramer MD - Last Filed: 05/21/24 22:06> Genitourinary: Genitourinary: Reports no additional female genitourinary complaints <Germain Cramer MD - Last Filed: 05/21/24 22:06> PMFSH Past Medical History Medical History: Medical History Arthritis Bilateral knee pain Breast cancer Diverticulitis large intestine Gastric ulcer GERD (gastroesophageal reflux disease) History of breast cancer Hyperlipidemia Hypothyroid Insomnia Osteopenia Thyroid disorder <ARMANDO Hansen
[2024-05-21] MEDS: ONDANSETRON INJ 4 MG/2 ML VIAL IV PUSH (16:13)
[2024-05-21 16:38] LABS: Hematocrit 42.4 % (37.0-47.0); Hemoglobin 14.2 g/dL (12.0-15.0); Immature Granulocyte Absolute 0.01 K/mm3 (0.00-0.031); Immature Granulocyte Percent A 0.2 % (0-0.5); Lymphocytes Absolute Auto 0.44 K/mm3 (0.9-3.2); Lymphocytes Percent Auto 8.4 % (18.3-44.2); Mean Corpuscular HGB Conc 33.5 g/dl (32-36); Mean Corpuscular Hemoglobin 32.9 pg (26-34); Mean Corpuscular Volume 98.4 fl (80-100); Mean Platelet Volume 11.5 fl (7.4-10.4); Monocytes Absolute Auto 0.1 K/mm3 (0.1-0.6); Monocytes Percent Auto 1.9 % (2.6-8.5); Neutrophils Absolute Auto 4.7 K/mm3 (1.3-6.7); Neutrophils Percent Auto 89.5 % (45.5-73.1); Platelet Count Result 241 k/mm3 (150-375); Red Blood Count 4.31 M/mm3 (4.2-5.4); Red Cell Distribution Width 13.5 % (11.5-14.5); White Blood Count 5.2 K/mm3 (4.5-10.0)
[2024-05-21 16:44] LABS: Lactic Acid Reflex 2.7 mmol/L (0.7-2.0)
[2024-05-21 16:45] LABS: Alanine Aminotransferase 19 U/L (6-35); Albumin Level 4.8 g/dL (3.5-5.1); Alkaline Phosphatase 101 U/L (38-126); Anion Gap 15 mmol/L (4-12); Aspartate Amino Transferase 29 U/L (14-36); Bilirubin,Total 0.7 mg/dL (0.2-1.3); Blood Urea Nitrogen 17 mg/dL (7-17); Calcium 9.6 mg/dL (8.4-10.2); Carbon Dioxide 22 mmol/L (22-30); Chloride 102 mmol/L (98-107); Estimated CRCL calculation 60 ml/min; Estimated Glomerular Filt Rate > 60; Glucose 149 mg/dL (65-110); Lipase 81 U/L (23-300); Potassium 4.1 mmol/L (3.4-5.0); Sodium 139 mmol/L (137-145)
[2024-05-21 17:10] LABS: Influenza A QL RT-PCR Negative (Negative); Influenza B QL RT-PCR Negative (Negative); RSV RNA, RT-PCR Negative (Negative); SARS-CoV-2 RNA PCR Negative (Negative)
[2024-05-21 19:31] LABS: Reflex Lactic Acid Yes or No Add Lactic
[2024-05-21] MEDS: PANTOPRAZOLE SODIUM IV 40 MG VIAL IV PUSH (19:34)
[2024-05-21] MEDS: PROMETHAZINE HCL 25 MG/ML AMPUL 12.5 MG IV PUSH (19:37)
[2024-05-21] MEDS: SODIUM CHLORIDE 0.9% IV 1,000 ML 999 ML IV CONT ×3 (19:39→20:33)
[2024-05-21] MEDS: BELLADONNA ALK/PHENOB ELIX 10 ML, MAG HYDROX/ALUMINUM HYD/SIMETH 30 ML, LIDOCAINE HCL 2... PO (20:33)
[2024-05-21] MEDS: MECLIZINE HCL 25 MG TABLET PO (20:51)
[2024-05-21 21:14] LABS: Add Urine Microscopic? YES; Appearance Urine Cloudy (Clear); Bacteria Urine 4+ /hpf; Bilirubin Urine Negative (Negative); Blood Urine Negative (Negative); Color Urine Yellow (Yellow); Glucose Urine UA Negative (Negative); Ketones Urine 1+ mg/dL (Negative); Leukocyte Esterase Ur Negative LEU/UL (Negative); Need Manual Microscopic Reviewed; Nitrate Urine Positive (Negative); Non Pathogenic Casts 0-2; Protein Urine Negative (Negative); RBC Urine 0-2 /hpf (0-2); Specific Grav Ur > 1.045 (1.001-1.035); Squamous Epithelial Cell Urine None Seen /hpf (Few); Urobilinogen Urine 0.2 mg/dL (<2.0)
[2024-05-21 22:01] LABS: Lactic Acid 2.1 mmol/L (0.7-2.0)
--- NOTE | 2024-05-21 22:01 | ECG_ITS ---
Test Date: 2024-05-21 22:52:16 Measurements Intervals [place] Rate: 89 P: 53 OR: 200 QRS: -23 QRSD: 100 T: -6 QT: 378 QTc: 461 Interpretive Statements SINUS RHYTHM VOLTAGE CRITERIA FOR LVH CONSIDER ANTERIOR INFARCT, AGE INDETERMINATE BORDERLINE ST-T WAVE ABNORMALITY- INFERIOR LEADS BASELINE ARTIFACT- V6 ABNORMAL ECG Compared to ECG 04/19/2024 23:27:26 No significant changes Electronically Signed On 05-22-2024 06:44:17 CDT by Kiran Palmer D.O.
[2024-05-21] MEDS: diazePAM INJ (*CRX) 10 MG/2 ML SYRINGE 5 MG IV PUSH (22:42)
[2024-05-21] MEDS: CEPHALEXIN 500 MG CAPSULE PO (22:42)
--- NOTE | 2024-05-21 23:10 | ADMGEN ---
This patient, Neli Boswell, was admitted to Medical Room 346-01. Patient/family oriented to hospital policies and general routines including ID bracelet, bed and alarms, visiting hours, pain management, procedures, bathroom and other care routines, personal items, smoking policy, room service/diet, and visiting hours. Information on how to activate the Rapid Response Team has been discussed. Patient/Family are encouraged to report perceived risks to care and to ask questions if they do not understand what they are told or what they should do.
--- NOTE | 2024-05-21 23:55 | PM.IMHP ---
H&P: HPI History of Present Illness Date/Time: 05/21/24 23:55 Chief Complaint: Dizziness with nausea vomiting Narrative: This is a 78-year-old female patient who came to the emergency room with complaints of nausea and vomiting. She does have a history of peptic ulcer disease. The patient developed nausea and vomiting yesterday around 7:00 p.m.. She was not able to keep down any food or drink. She did go to the urgent care and she stated that she was given p.o. Zofran and that did not resolve her symptoms. She now has dizziness and describes it as the room spinning. She has no focal weakness. The patient had a similar episode 5 weeks ago when she had her left knee replacement and was taking pain medication. Her head CT shows no acute intracranial process. Abdominal CT shows mild esophagitis gastritis 8 mm pancreatic tail cyst recommend follow-up in 2 years to determine stability. She was given Keflex Antivert and Protonix in the emergency room. Her lactic acid is 2.1. She was found have a urinary tract infection with positive nitrate WBCs 11-20 and 4+ bacteria. She was negative for influenza a, influenza B, RSV and COVID. She is being admitted to observation status on the date of service of 05/21/2024. Review of Systems Review of Systems: All systems reviewed & are unremarkable except as noted in HPI and below Constitutional: Constitutional: Reports as per HPI and Reports no additional constitutional complaints Eyes: Eyes: Reports as per HPI and Reports no additional eye complaints ENT: Reports system reviewed and no additional complaints, except as documented and Reports Normal hearing present Cardiovascular: Cardiovascular: Reports no additional cardiovascular complaints Respiratory: Respiratory: Reports no additional respiratory complaints and Reports no additional respiratory complaints Gastrointestinal: Gastrointestinal: Reports as per HPI and Reports no additional gastrointestinal complaints Musculoskeletal: Musculoskeletal: Reports no additional musculoskeletal complaints Integumentary/Breasts: Skin/Breast: Reports system reviewed and no additional complaints, except as docu and Reports as per HPI Neurologic: Reports system reviewed and no additional complaints, except as documented, Reports as per HPI and Reports Normal hearing present Psychiatric: Psychiatric: Reports no additional psychiatric complaints and Reports as per HPI Endocrine: Endocrine: Reports no additional endocrine complaints Hematologic/Lymphatic: Hematologic/Lymphatic: Reports no additional hematologic/lymphatic complaints Allergic/Immunologic: Allergic/Immunologic: Reports no additional allergic/immunologic complaints [facility] Past Medical History Medical History (Updated 05/22/24 @ 00:27 by Ashley Wilson NP) Arthritis Bilateral knee pain Breast cancer Diverticulitis large intestine Gastric ulcer GERD (gastroesophageal reflux disease) History of breast cancer Hyperlipidemia Hypothyroid Insomnia Osteopenia Thyroid disorder Surgical History Surgical History (Updated 05/22/24 @ 00:20 by Ashley Wilson NP) H/O hysterectomy for benign disease History of left knee replacement S/P removal of thyroid nodule Family History Family History Mother Diabetes mellitus Hypertension Stomach cancer Father Heart disease Grandparent Heart disease Grandparent Diabetes mellitus Heart disease Social History Social History (Updated 05/22/24 @ 00:21 by Ashley Wilson NP) Social History: She is and lives with her . She is a former smoker. She is retired. 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 The patient desires to be a full code. Smoking status: Former smoker Second hand tobacco smoke exposure: No Additional smoking assessment comments: quit approximately 60years ago Alcohol intake: current Drinks per week: 7 Alcohol use d
[2024-05-22] VITALS (10 sets, daily range): BP systolic 146–163; BP diastolic 56–78; PULSE 71–88; RESP 16–18; TEMP 36.4–36.8; O2SAT 94–99
--- NOTE | 2024-05-22 | ECHO_ITS ---
Patient Info Name: Neli Boswell Age: 78 years : 1945 Gender: Female Ht: 66 in Wt: 163 lbs BSA: 1.87 m2 HR: 74 bpm BP: 153 / 56 mmHg Heart Rhythm: Sinus Rhythm Technical Quality: Good Exam Date: 05/22/2024 2:47 PM Exam Location: Echo Lab Patient Status: Inpatient Admit Date: 05/21/2024 Staff Ordering Physician: Vonda Bowman APRN Cargo Bracer: Kathya López RDCS Attending Provider: Derek Mercado MD Referring Physician: Gracie PATINO; Exam Type: CA echo doppler color flow Study Info Indications - Dizziness Complete two-dimensional, color flow and Doppler transthoracic echocardiogram is performed. Summary 1. Complete two-dimensional, color flow and Doppler transthoracic echocardiogram is performed. 2. Left ventricular chamber dimension is normal. 3. Left ventricular systolic function is normal, estimated at 60-65%. 4. The left ventricular diastolic function is grade I diastolic dysfunction. 5. E/e' 11 is mildly elevated. 6. Left atrial chamber dimension is mildly enlarged. 7. There is moderate aortic valve sclerosis. 8. The mitral valve has moderately calcified annulus. 9. There is mild mitral valve regurgitation. 10. There is trace tricuspid valve regurgitation. 11. No pulmonary hypertension, estimated pulmonary arterial systolic pressure is 32 mmHg. Left Ventricle E/e' 11 is mildly elevated. Left ventricular chamber dimension is normal. Left ventricular systolic function is normal, estimated at 60-65%. The left ventricular diastolic function is grade I diastolic dysfunction. Right Ventricle Right ventricular systolic function is normal and with normal TAPSE 2.5 cm. Right ventricular chamber dimension is normal. Left Atria Left atrial chamber dimension is mildly enlarged. Right Atria Right atrial chamber dimension is normal. Aortic Valve The aortic valve is trileaflet. There is moderate aortic valve sclerosis. There is no aortic valve stenosis. There is no aortic valve regurgitation. Pulmonic Valve There is no pulmonic regurgitation. Mitral Valve The mitral valve has moderately calcified annulus. There is no mitral valve stenosis. There is mild mitral valve regurgitation. Tricuspid Valve There is trace tricuspid valve regurgitation. No pulmonary hypertension, estimated pulmonary arterial systolic pressure is 32 mmHg. Pericardium/Pleural There is no pericardial effusion. Inferior Vena Cava Normal inferior vena cava with >50% collapse upon inspiration consistent with normal right atrial pressure, 5 mmHg. Aorta The aortic root size at the sinus of Valsalva is normal. Left Ventricular Outflow Tract Name Value Normal LVOT 2D LVOT Diameter 2.0 cm LVOT Doppler LVOT Peak Gradient 4 mmHg LVOT Mean Gradient 2 mmHg LVOT VTI 23 cm LVOT VTI/AV VTI Ratio 0.6 LVOT Stroke Volume 73 ml LVOT CO 4.6 l/min LVOT CI 2.4 l/min/m2 Pulmonic Valve Name
[2024-05-22] MEDS: SODIUM CHLORIDE 0.9% IV 1,000 ML 100 ML IV CONT ×2 (00:30→19:21)
--- NOTE | 2024-05-22 00:41 | PC.NURSE ---
LEVOTHYROXINE DOSAGE AND FREQUENCY VERIFIED WITH PATIENT. PHARMACY NOTIFIED OF CHANGE.
[2024-05-22 06:06] LABS: Thyroid Stimulating Hormone Reflex 0.063 uIU/mL (0.465-4.68)
[2024-05-22] MEDS: LEVOTHYROXINE SODIUM 25 MCG TABLET PO (06:24)
[2024-05-22 09:15] LABS: Free T4 Free Thyroxine Reflex 1.31 ng/dL (0.78-2.19)
[2024-05-22] MEDS: MECLIZINE HCL 12.5 MG TABLET PO ×4 (09:17→22:01)
[2024-05-22] MEDS: PANTOPRAZOLE SODIUM IV 40 MG VIAL IV PUSH ×2 (09:17→22:02)
[2024-05-22] MEDS: ONDANSETRON INJ 4 MG/2 ML VIAL IV PUSH ×2 (09:20→18:08)
[2024-05-22 10:29] LABS: Total Triiodothyronine (T3) 0.99 NG/ML (0.97-1.69)
[2024-05-22] MEDS: ACETAMINOPHEN 325 MG TABLET 650 MG PO (11:09)
--- NOTE | 2024-05-22 11:45 | PM.IMPN ---
Progress Note: A&P Assessment and Plan (1) Vertigo: Code(s): R42 - Dizziness and giddiness Status: Acute Assessment and Plan: 05/22/24: Could be due to vertigo versus dehydration versus CVA/TIA Head CT was negative Patient was given 2 L of IV fluids while in the ED and started on IV fluids at maintenance rate Continue Antivert PT and OT ordered Will get MRI of brain today to rule out CVA/TIA CTA of brain and carotids Plan for Echo to rule out cardiac etiology Continue IVF for now (2) Vomiting: Code(s): R11.10 - Vomiting, unspecified Status: Acute Assessment and Plan: 05/22/24: CT of the abdomen showed mild esophagitis/gastritis, 8 mm pancreatic tail cyst with recommendations to follow-up in 2 years to determine stability Continue nausea control (3) Acute UTI: Code(s): N39.0 - Urinary tract infection, site not specified Status: Acute Assessment and Plan: 05/22/24: UA showed cloudy urine appearance, greater than 1.045 urine specific gravity, 1+ urine ketone, positive urine nitrate, 11-20 urine WBC, 4+ urine bacteria Urine culture and blood cultures obtained and are pending Patient was started on Keflex in the emergency room and was switched over to Rocephin IV Continue Rocephin (4) Pancreatic cyst: Code(s): K86.2 - Cyst of pancreas Status: Acute Assessment and Plan: 05/22/24: Cyst found on tail of pancreas Will need follow-up in 2 years (5) Hypothyroid: Code(s): E03.9 - Hypothyroidism, unspecified Status: Acute Assessment and Plan: 05/22/24: TSH 0.063, free T4 1.31, total T3 0.99 Will hold off on her Synthroid for now (6) Hyperlipidemia: Code(s): E78.5 - Hyperlipidemia, unspecified Status: Acute Assessment and Plan: 05/22/24: Continue atorvastatin Time Spent With Patient Time with patient: 25 - 35 minutes Subjective Date/time seen: 05/22/24 11:45 Interval history: Interval history: This is a 78-year-old female who presented to the hospital on 05/21/2024 with complaints of nausea and vomiting. Patient does have history of peptic ulcer disease. Workup in the hospital included head CT which was negative. Abdomen/pelvis CT which shown mild esophagitis/ gastritis, 8 mm pancreatic tail cyst. A humerus x-ray was negative for any fracture. Initial labs showed a normal white blood cell count of 5.2, lactic acid 2.7> 2.1, lipase 81, TSH 0.063. UA was obtained and was showed a urine specific gravity of greater than 1.045, 1+ urine ketone, positive nitrate, 11-20 urine WBCs, 4+ bacteria. Respiratory panel was negative for influenza a and B, RSV, COVID. Blood and urine cultures were obtained and pending. Patient was given IV fluids, Zofran, Protonix, meclizine, Keflex, and Valium while in the ED. Subjective: Patient denies any fever, chills, abdominal pain, chest pain, shortness of breath, headache, lightheadedness, or vision changes. Patient endorses dizziness with position changes, nausea, and vomiting. Labs and imaging reviewed. Review of Systems Review of Systems: All systems reviewed & are unremarkable except as noted in HPI and below Constitutional: Constitutional: Reports as per HPI and Reports no additional constitutional complaints Eyes: Eyes: Reports as per HPI and Reports no additional eye complaints ENT: Reports system reviewed and no additional complaints, except as documented and Reports as per HPI Cardiovascular: Cardiovascular: Reports as per HPI and Reports no additional cardiovascular complaints Respiratory: Respiratory: Reports as per HPI and Reports no additional respiratory complaints Gastrointestinal: Gastrointestinal: Reports as per HPI and Reports no additional gastrointestinal complaints Genitourinary: Genitourinary: Reports no additional female genitourinary complaints and Reports as per HPI Musculoskeletal: Musculoskeletal: Reports no additional musculoskelet
[2024-05-22] MEDS: MAGNESIUM OXIDE 200 MG TABLET PO (22:01)
[2024-05-22] MEDS: MELATONIN 3 MG TABLET PO (22:01)
[2024-05-22] MEDS: IBUPROFEN 400 MG TABLET PO (22:02)
[2024-05-23] VITALS (10 sets, daily range): BP systolic 122–146; BP diastolic 56–74; PULSE 60–79; RESP 16; TEMP 36.5–36.9; O2SAT 94–95
[2024-05-23 05:37] LABS: Basophils Absolute Auto 0.1 K/mm3 (0.0-0.1); Basophils Percent Auto 1.1 % (0.2-1.2); Eosinophils Absolute Auto 0.2 K/mm3 (0-0.3); Eosinophils Percent Auto 4.6 % (0-4.4); Hemoglobin 11.7 g/dL (12.0-15.0); Immature Granulocyte Absolute 0.01 K/mm3 (0.00-0.031); Immature Granulocyte Percent A 0.2 % (0-0.5); Lymphocytes Absolute Auto 0.96 K/mm3 (0.9-3.2); Mean Corpuscular HGB Conc 32.5 g/dl (32-36); Mean Corpuscular Hemoglobin 32.1 pg (26-34); Mean Corpuscular Volume 98.6 fl (80-100); Mean Platelet Volume 10.6 fl (7.4-10.4); Monocytes Absolute Auto 0.4 K/mm3 (0.1-0.6); Monocytes Percent Auto 9.9 % (2.6-8.5); Neutrophils Absolute Auto 2.7 K/mm3 (1.3-6.7); Neutrophils Percent Auto 62.2 % (45.5-73.1); Platelet Count Result 190 k/mm3 (150-375); Red Blood Count 3.65 M/mm3 (4.2-5.4); Red Cell Distribution Width 13.4 % (11.5-14.5); White Blood Count 4.4 K/mm3 (4.5-10.0)
[2024-05-23 05:59] LABS: Anion Gap 8 mmol/L (4-12); Blood Urea Nitrogen 9 mg/dL (7-17); Calcium 8.5 mg/dL (8.4-10.2); Carbon Dioxide 23 mmol/L (22-30); Chloride 107 mmol/L (98-107); Estimated CRCL calculation 53 ml/min; Estimated Glomerular Filt Rate > 60; Glucose 86 mg/dL (65-110); Potassium 3.2 mmol/L (3.4-5.0); Sodium 138 mmol/L (137-145)
[2024-05-23] MEDS: SODIUM CHLORIDE 0.9% IV 1,000 ML 100 ML IV CONT (06:04)
[2024-05-23] MEDS: PANTOPRAZOLE SODIUM IV 40 MG VIAL IV PUSH ×2 (08:51→20:54)
[2024-05-23] MEDS: ONDANSETRON INJ 4 MG/2 ML VIAL IV PUSH (08:53)
[2024-05-23] MEDS: MECLIZINE HCL 12.5 MG TABLET PO ×4 (08:54→20:54)
[2024-05-23] MEDS: ATORVASTATIN 40 MG TABLET PO (08:54)
--- NOTE | 2024-05-23 09:57 | PM.IMPN ---
Progress Note: A&P Assessment and Plan (1) Vertigo: Code(s): R42 - Dizziness and giddiness Status: Acute Assessment and Plan: 05/22/24: Could be due to vertigo versus dehydration versus CVA/TIA Head CT was negative Patient was given 2 L of IV fluids while in the ED and started on IV fluids at maintenance rate Continue Antivert PT and OT ordered Will get MRI of brain today to rule out CVA/TIA CTA of brain and carotids Plan for Echo to rule out cardiac etiology Continue IVF for now 05/23- echo- EF 60-65% left ventricular diastolic function is grade I diastolic dysfunction. Left atrial chamber dimension is mildly enlarged. Brain MRI: IMPRESSION: 1. Mild leukoaraiosis. 2. No acute intracranial findings. - will add neurology consult for ecal and f/u as an outpt - on statin now- may need to up titrate to high intensity- will discuss with pt - continue Antivert (2) Vomiting: Code(s): R11.10 - Vomiting, unspecified Status: Acute Assessment and Plan: 05/22/24: CT of the abdomen showed mild esophagitis/gastritis, 8 mm pancreatic tail cyst with recommendations to follow-up in 2 years to determine stability Continue nausea control (3) Acute UTI: Code(s): N39.0 - Urinary tract infection, site not specified Status: Acute Assessment and Plan: 05/22/24: UA showed cloudy urine appearance, greater than 1.045 urine specific gravity, 1+ urine ketone, positive urine nitrate, 11-20 urine WBC, 4+ urine bacteria Urine culture and blood cultures obtained and are pending Patient was started on Keflex in the emergency room and was switched over to Rocephin IV Continue Rocephin (4) Pancreatic cyst: Code(s): K86.2 - Cyst of pancreas Status: Acute Assessment and Plan: 05/22/24: Cyst found on tail of pancreas Will need follow-up in 2 years (5) Hypothyroid: Code(s): E03.9 - Hypothyroidism, unspecified Status: Acute Assessment and Plan: 05/22/24: TSH 0.063, free T4 1.31, total T3 0.99 Will hold off on her Synthroid for now (6) Hyperlipidemia: Code(s): E78.5 - Hyperlipidemia, unspecified Status: Acute Assessment and Plan: 05/22/24: Continue atorvastatin Time Spent With Patient Time with patient: Greater than 35 minutes Subjective Date/time seen: 05/23/24 09:57 Interval history: Interval history: This is a 78-year-old female who presented to the hospital on 05/21/2024 with complaints of nausea and vomiting. Patient does have history of peptic ulcer disease. Workup in the hospital included head CT which was negative. Abdomen/pelvis CT which shown mild esophagitis/ gastritis, 8 mm pancreatic tail cyst. A humerus x-ray was negative for any fracture. Initial labs showed a normal white blood cell count of 5.2, lactic acid 2.7> 2.1, lipase 81, TSH 0.063. UA was obtained and was showed a urine specific gravity of greater than 1.045, 1+ urine ketone, positive nitrate, 11-20 urine WBCs, 4+ bacteria. Respiratory panel was negative for influenza a and B, RSV, COVID. Blood and urine cultures were obtained and pending. Patient was given IV fluids, Zofran, Protonix, meclizine, Keflex, and Valium while in the ED. Subjective: Patient denies any fever, chills, abdominal pain, chest pain, shortness of breath, headache, lightheadedness, or vision changes. Patient endorses dizziness with position changes, nausea, and vomiting. Labs and imaging reviewed. 05/23- assuming care. Pt is seen and examined. reports overall feeling ok- but still dizzy. eating and drinking well. Ex at the bedside Review of Systems Review of Systems: All systems reviewed & are unremarkable except as noted in HPI and below Constitutional: Constitutional: Reports as per HPI and Reports no additional constitutional complaints Eyes: Eyes: Reports as per HPI and Reports no additional eye complaints ENT: Reports system reviewed and no additional c
--- NOTE | 2024-05-23 19:59 | PC.NURSE ---
THIS NURSE ATTEMPTED TO COMPLETE NEUROLOGY CONSULT ORDERED. NO NEUROLOGIST LEAD RADIATION THERAPIST AT THIS TIME. HOSPITALIST MADE AWARE.
[2024-05-23] MEDS: MELATONIN 3 MG TABLET PO (20:54)
[2024-05-23] MEDS: MAGNESIUM OXIDE 200 MG TABLET PO (20:54)
[2024-05-24] VITALS (8 sets, daily range): BP systolic 136–169; BP diastolic 60–78; PULSE 61–81; RESP 16–18; TEMP 36.4–36.8; O2SAT 93–97
[2024-05-24] MEDS: POTASSIUM CHLORIDE 20 MEQ PACKET (FOR LIQUID) 40 MEQ PO (08:47)
[2024-05-24] MEDS: MECLIZINE HCL 12.5 MG TABLET PO (08:47)
[2024-05-24] MEDS: ATORVASTATIN 40 MG TABLET PO (08:47)
[2024-05-24] MEDS: PANTOPRAZOLE SODIUM IV 40 MG VIAL IV PUSH ×2 (08:48→20:18)
[2024-05-24] MEDS: MECLIZINE HCL 25 MG TABLET PO ×3 (12:39→20:18)
[2024-05-24] MEDS: MAG HYDROX/AL HYDROX/SIMETH 30 ML UDC PO (12:39)
[2024-05-24] MEDS: MAGNESIUM OXIDE 200 MG TABLET PO (12:43)
--- NOTE | 2024-05-24 12:44 | PC.NURSE ---
Per patient request, magnesium oxide 200mg given early at 1245.
--- NOTE | 2024-05-24 13:28 | PM.IMPN ---
Progress Note: A&P Assessment and Plan (1) Vertigo: Code(s): R42 - Dizziness and giddiness Status: Acute Assessment and Plan: 05/22/24: Could be due to vertigo versus dehydration versus CVA/TIA Head CT was negative Patient was given 2 L of IV fluids while in the ED and started on IV fluids at maintenance rate Continue Antivert PT and OT ordered Will get MRI of brain today to rule out CVA/TIA CTA of brain and carotids Plan for Echo to rule out cardiac etiology Continue IVF for now 05/23- echo- EF 60-65% left ventricular diastolic function is grade I diastolic dysfunction. Left atrial chamber dimension is mildly enlarged. Brain MRI: IMPRESSION: 1. Mild leukoaraiosis. 2. No acute intracranial findings. - will add neurology consult for eval - on statin now- may need to up titrate to high intensity- will discuss with pt - continue Antivert- will increase dose at this time - apparently neurology is not available on the weekend - pt is ok with waiting till tomorrow (2) Vomiting: Code(s): R11.10 - Vomiting, unspecified Status: Acute Assessment and Plan: 05/22/24: CT of the abdomen showed mild esophagitis/gastritis, 8 mm pancreatic tail cyst with recommendations to follow-up in 2 years to determine stability Continue nausea control (3) Acute UTI: Code(s): N39.0 - Urinary tract infection, site not specified Status: Acute Assessment and Plan: 05/22/24: UA showed cloudy urine appearance, greater than 1.045 urine specific gravity, 1+ urine ketone, positive urine nitrate, 11-20 urine WBC, 4+ urine bacteria Urine culture and blood cultures obtained and are pending Patient was started on Keflex in the emergency room and was switched over to Rocephin IV Continue Rocephin - will downgrade to PO regimen tomorrow (4) Pancreatic cyst: Code(s): K86.2 - Cyst of pancreas Status: Acute Assessment and Plan: 05/22/24: Cyst found on tail of pancreas Will need follow-up in 2 years (5) Hypothyroid: Code(s): E03.9 - Hypothyroidism, unspecified Status: Acute Assessment and Plan: 05/22/24: TSH 0.063, free T4 1.31, total T3 0.99 Will hold off on her Synthroid for now (6) Hyperlipidemia: Code(s): E78.5 - Hyperlipidemia, unspecified Status: Acute Assessment and Plan: 05/22/24: Continue atorvastatin Time Spent With Patient Time with patient: Greater than 35 minutes Subjective Date/time seen: 05/24/24 13:28 Interval history: Interval history: This is a 78-year-old female who presented to the hospital on 05/21/2024 with complaints of nausea and vomiting. Patient does have history of peptic ulcer disease. Workup in the hospital included head CT which was negative. Abdomen/pelvis CT which shown mild esophagitis/ gastritis, 8 mm pancreatic tail cyst. A humerus x-ray was negative for any fracture. Initial labs showed a normal white blood cell count of 5.2, lactic acid 2.7> 2.1, lipase 81, TSH 0.063. UA was obtained and was showed a urine specific gravity of greater than 1.045, 1+ urine ketone, positive nitrate, 11-20 urine WBCs, 4+ bacteria. Respiratory panel was negative for influenza a and B, RSV, COVID. Blood and urine cultures were obtained and pending. Patient was given IV fluids, Zofran, Protonix, meclizine, Keflex, and Valium while in the ED. Subjective: Patient denies any fever, chills, abdominal pain, chest pain, shortness of breath, headache, lightheadedness, or vision changes. Patient endorses dizziness with position changes, nausea, and vomiting. Labs and imaging reviewed. 05/23- assuming care. Pt is seen and examined. reports overall feeling ok- but still dizzy. eating and drinking well. Ex at the bedside 05/24- pt is very frustrated- apperently neurology was not available yesterday or today here- so she was not seen. I offered her to malik to another facility for work up- she declined. WE will in
[2024-05-24] MEDS: MELATONIN 3 MG TABLET PO (20:18)
[2024-05-25] VITALS (7 sets, daily range): BP systolic 147–157; BP diastolic 64–74; PULSE 65–77; RESP 16–18; TEMP 36.4–37.1; O2SAT 93–96
[2024-05-25 07:38] LABS: Hematocrit 37.6 % (37.0-47.0); Hemoglobin 12.7 g/dL (12.0-15.0); Mean Corpuscular HGB Conc 33.8 g/dl (32-36); Mean Corpuscular Hemoglobin 33.3 pg (26-34); Mean Corpuscular Volume 98.7 fl (80-100); Mean Platelet Volume 11.2 fl (7.4-10.4); Platelet Count Result 213 k/mm3 (150-375); Red Blood Count 3.81 M/mm3 (4.2-5.4); Red Cell Distribution Width 13.1 % (11.5-14.5); White Blood Count 4.3 K/mm3 (4.5-10.0)
[2024-05-25 08:25] LABS: Anion Gap 7 mmol/L (4-12); Blood Urea Nitrogen 9 mg/dL (7-17); Calcium 8.6 mg/dL (8.4-10.2); Carbon Dioxide 24 mmol/L (22-30); Chloride 106 mmol/L (98-107); Estimated CRCL calculation 60 ml/min; Estimated Glomerular Filt Rate > 60; Glucose 93 mg/dL (65-110); Potassium 4.1 mmol/L (3.4-5.0); Sodium 137 mmol/L (137-145)
[2024-05-25] MEDS: MAGNESIUM OXIDE 400 MG TABLET PO (09:05)
[2024-05-25] MEDS: MECLIZINE HCL 25 MG TABLET PO ×4 (09:05→20:14)
[2024-05-25] MEDS: ATORVASTATIN 40 MG TABLET PO (09:05)
[2024-05-25] MEDS: PANTOPRAZOLE SODIUM IV 40 MG VIAL IV PUSH ×2 (09:06→20:14)
[2024-05-25] MEDS: POTASSIUM CHLORIDE 20 MEQ PACKET (FOR LIQUID) 40 MEQ PO (09:07)
[2024-05-25 09:24] LABS: Folic Acid 13.4 ng/mL (2.76->20)
--- NOTE | 2024-05-25 14:10 | PM.DS ---
DS: Admitting Diagnosis Discharge Date 05/26 Admitting Diagnosis dizzy DS: Discharge Diagnosis Discharge Diagnosis (1) Vertigo: Code(s): R42 - Dizziness and giddiness Status: Acute Assessment and Plan: 05/22/24: Could be due to vertigo versus dehydration versus CVA/TIA Head CT was negative Patient was given 2 L of IV fluids while in the ED and started on IV fluids at maintenance rate Continue Antivert PT and OT ordered Will get MRI of brain today to rule out CVA/TIA CTA of brain and carotids Plan for Echo to rule out cardiac etiology Continue IVF for now 05/23- echo- EF 60-65% left ventricular diastolic function is grade I diastolic dysfunction. Left atrial chamber dimension is mildly enlarged. Brain MRI: IMPRESSION: 1. Mild leukoaraiosis. 2. No acute intracranial findings. - will add neurology consult for eval - on statin now- may need to up titrate to high intensity- will discuss with pt - continue Antivert- will increase dose at this time - apparently neurology is not available on the weekend - pt is ok with waiting till tomorrow - bhargav manoeuvre is performed per PT -pt will receive hand out and education - f/u with neurology as outpt (2) Vomiting: Code(s): R11.10 - Vomiting, unspecified Status: Acute Assessment and Plan: 05/22/24: CT of the abdomen showed mild esophagitis/gastritis, 8 mm pancreatic tail cyst with recommendations to follow-up in 2 years to determine stability Continue nausea control (3) Acute UTI: Code(s): N39.0 - Urinary tract infection, site not specified Status: Acute Assessment and Plan: 05/22/24: UA showed cloudy urine appearance, greater than 1.045 urine specific gravity, 1+ urine ketone, positive urine nitrate, 11-20 urine WBC, 4+ urine bacteria Urine culture and blood cultures obtained and are pending Patient was started on Keflex in the emergency room and was switched over to Rocephin IV Continue Rocephin - will downgrade to PO regimen tomorrow (4) Pancreatic cyst: Code(s): K86.2 - Cyst of pancreas Status: Acute Assessment and Plan: 05/22/24: Cyst found on tail of pancreas Will need follow-up in 2 years (5) Hypothyroid: Code(s): E03.9 - Hypothyroidism, unspecified Status: Acute Assessment and Plan: 05/22/24: TSH 0.063, free T4 1.31, total T3 0.99 Will hold off on her Synthroid for now (6) Hyperlipidemia: Code(s): E78.5 - Hyperlipidemia, unspecified Status: Acute Assessment and Plan: 05/22/24: Continue atorvastatin Plan Final dx: benign paroxysmal positional vertigo (BPPV) DS: Summary Hospital Course Hospital Course: admitted for dizziness workup is negative- vertigo versus dehydration versus CVA/TIA Head CT was negative Patient was given 2 L of IV fluids while in the ED and started on IV fluids at maintenance rate was oin Antivert-with not much results PT and OT 05/23- echo- EF 60-65% left ventricular diastolic function is grade I diastolic dysfunction. Left atrial chamber dimension is mildly enlarged. Brain MRI: IMPRESSION: 1. Mild leukoaraiosis. 2. No acute intracranial findings. -neurology consult for eval Pt performed bhargav manoeuvre- and taught pt few exercises to do at home Status at Discharge Functional status at discharge: independent ambulation Overall status at discharge: patient is progressing back to baseline Time Spent with Patient Time attestation: Total time spent providing and/or coordinating discharge services: Time spent: Greater than 30 minutes Exam Narrative: General: In no acute distress, well nourished Head: atraumatic, no encephalopathy Eyes: EOMI, PERRLA, sclera clear ENT: moist mucous membranes, nasal passages clear Neck: supple, no JVD, no adenopathy, trachea midline Cardiac: Normal S1 and S2. No murmur, gallops or friction rubs, peripheral pulses intact. Respiratory: Lungs clear to aus
--- NOTE | 2024-05-25 14:46 | WPDNEURCNPN ---
Assessment and Plan Assessment and plan (1) Benign paroxysmal positional vertigo: Code(s): H81.10 - Benign paroxysmal vertigo, unspecified ear Status: Acute (2) Cerebrovascular disease: Code(s): I67.9 - Cerebrovascular disease, unspecified Status: Acute Plan overall findings are suggestive of a peripheral Vestibular pathology such as may be seen with benign paroxysmal vertigo. The nausea and vomiting has subsided however the vertigo continues and is indeed quite severe for her. She is on Antivert 25 mg 4 times a day. I talked at length about the role of activity and safety precautions along with the help from her in addition she can try Norma maneuver on her own which have explained to her how to perform. A course of physical therapy can be added if necessary. I have advised to give me a call if she continues to have the problem. She may require video electronystagmography and a ENT evaluation if her symptoms persist. In addition to above the patient also appears to have some white matter changes noted in the brainstem as well as cerebral hemispheres. These will appear to be most likely coincidental finding nevertheless he was found to have attenuation of the flow in the right vertebral artery and significant stenosis of the right internal carotid artery in the supraclinoid portion. These appear to be most likely coincidental since there is no evidence for recent or acute brainstem stroke. It should be noted sometimes the symptoms can overlap and be difficult to distinguish however based upon the lack of any other obvious findings and they above presentation I suspect this is most likely benign positional vertigo however if her symptoms get worse or she has any problem to let me know. The results of all the investigations including radiology were reviewed by myself and I agree with the findings. Consult date: 05/25/24 HPI: Neli Boswell is a 78 year old female Presented to the hospital with nausea and vomiting and dizziness. The nausea vomiting continued for nearly 24 hours. She does have history of occasional vertigo however they used to be very short-lived was on this occasion where the nausea vomiting. She continues to significantly vertiginous. Even moving the head sideways or trying to get out of the bed makes it very difficult for her. CT scan of brain was performed which is within normal limit limits. There is no history of diabetes mellitus or myocardial infarction or stroke in the past. She has had a left knee replacement 5 weeks prior to the onset of the symptoms. She has suspected urinary tract infection also. Dmitri matter changes were seen in the moreon and both cerebral hemispheres an MRI of the brain. A CT angiogram of the head and neck shows a right vertebral artery being smaller or attenuated and there is a stenosis of the right internal carotid artery and supraclinoid portion. She denies any headache diplopia or difficulty speech or swallowing. No weakness in upper lower limbs. Review of Systems Review of Systems: All systems reviewed & are unremarkable except as noted in HPI and below PMFSH Past Medical History Medical History (Updated 05/25/24 @ 14:49 by Chano Espinosa MD) Arthritis Benign paroxysmal positional vertigo Bilateral knee pain Breast cancer Cerebrovascular disease Diverticulitis large intestine Gastric ulcer GERD (gastroesophageal reflux disease) History of breast cancer Hyperlipidemia Hypothyroid Insomnia Osteopenia Thyroid disorder Surgical History Surgical History H/O hysterectomy for benign disease History of left knee replacement S/P removal of thyroid nodule Family History Family History Mother Diabetes mellitus Hypertension Stomach cancer Father Heart disease Grandparent Heart disease Grandparent Diabetes mellitus Heart
[2024-05-25] MEDS: CEPHALEXIN 500 MG CAPSULE PO (20:14)
[2024-05-25] MEDS: MELATONIN 3 MG TABLET PO (20:14)
[2024-05-26 06:00] VITALS: BP 148/58; PULSE 78; RESP 16; TEMP 36.9; O2SAT 94
[2024-05-26] MEDS: ATORVASTATIN 40 MG TABLET PO (09:08)
[2024-05-26] MEDS: CEPHALEXIN 500 MG CAPSULE PO (09:08)
[2024-05-26] MEDS: MAGNESIUM OXIDE 400 MG TABLET PO (09:08)
[2024-05-26] MEDS: PANTOPRAZOLE SODIUM IV 40 MG VIAL IV PUSH (09:08)
[2024-05-26] MEDS: MECLIZINE HCL 25 MG TABLET PO (09:08)
[2024-05-26] MEDS: POTASSIUM CHLORIDE 20 MEQ PACKET (FOR LIQUID) 40 MEQ PO (09:09)
--- NOTE | 2024-05-26 10:33 | P.DS_ITS ---
DS: Admitting Diagnosis Discharge Date 05/26 Admitting Diagnosis dizzy DS: Discharge Diagnosis Discharge Diagnosis (1) Vertigo: Code(s): R42 - Dizziness and giddiness Status: Acute Assessment and Plan: 05/22/24: * Could be due to vertigo versus dehydration versus CVA/TIA * Head CT was negative * Patient was given 2 L of IV fluids while in the ED and started on IV fluids at maintenance rate * Continue Antivert * PT and OT ordered * Will get MRI of brain today to rule out CVA/TIA * CTA of brain and carotids * Plan for Echo to rule out cardiac etiology * Continue IVF for now 05/23- echo- EF 60-65% left ventricular diastolic function is grade I diastolic dysfunction. Left atrial chamber dimension is mildly enlarged. Brain MRI: IMPRESSION: 1. Mild leukoaraiosis. 2. No acute intracranial findings. - will add neurology consult for eval - on statin now- may need to up titrate to high intensity- will discuss with pt - continue Antivert- will increase dose at this time - apparently neurology is not available on the weekend - pt is ok with waiting till tomorrow - bhargav manoeuvre is performed per PT -pt will receive hand out and education - f/u with neurology as outpt (2) Vomiting: Code(s): R11.10 - Vomiting, unspecified Status: Acute Assessment and Plan: 05/22/24: * CT of the abdomen showed mild esophagitis/gastritis, 8 mm pancreatic tail cyst with recommendations to follow-up in 2 years to determine stability * Continue nausea control (3) Acute UTI: Code(s): N39.0 - Urinary tract infection, site not specified Status: Acute Assessment and Plan: 05/22/24: * UA showed cloudy urine appearance, greater than 1.045 urine specific gravity, 1+ urine ketone, positive urine nitrate, 11-20 urine WBC, 4+ urine bacteria * Urine culture and blood cultures obtained and are pending * Patient was started on Keflex in the emergency room and was switched over to Rocephin IV * Continue Rocephin - will downgrade to PO regimen tomorrow (4) Pancreatic cyst: Code(s): K86.2 - Cyst of pancreas Status: Acute Assessment and Plan: 05/22/24: * Cyst found on tail of pancreas * Will need follow-up in 2 years (5) Hypothyroid: Code(s): E03.9 - Hypothyroidism, unspecified Status: Acute Assessment and Plan: 05/22/24: * TSH 0.063, free T4 1.31, total T3 0.99 * Will hold off on her Synthroid for now (6) Hyperlipidemia: Code(s): E78.5 - Hyperlipidemia, unspecified Status: Acute Assessment and Plan: 05/22/24: * Continue atorvastatin Plan Final dx: benign paroxysmal positional vertigo (BPPV) DS: Summary Hospital Course Hospital Course: Hospital Course: admitted for dizziness workup is negative- * vertigo versus dehydration versus CVA/TIA * Head CT was negative * Patient was given 2 L of IV fluids while in the ED and started on IV fluids at maintenance rate * was oin Antivert-with not much results * PT and OT * * 05/23- echo- EF 60-65% left ventricular diastolic function is grade I diastolic dysfunction. Left atrial chamber dimension is mildly enlarged. Brain MRI: IMPRESSION: 1. Mild leukoaraiosis. 2. No acute intracranial findings. -neurology consult for eval Pt performed bhargav manoeuvre- and taught pt few exercises to do at home Status at Discharge Functional status at discharge: independent ambulation Overall status at discharge: patient is progressing back to baseline Status at
== END 2024-05-26 12:45 | disposition home or self-care (01) | DRG 149 ==
LOC: ANHED 22:05 → ANH3MED 22:45
PROVIDERS: Nurse Practitioner; Physician Assistant; Admitting Provider Internal Medicine; Emergency Provider Emergency Medicine; PCP Family Medicine; Visit Provider Nurse Practitioner
DX: H81.10 Benign paroxysmal vertigo, unspecified ear (principal); N39.0 Urinary tract infection, site not specified; K86.2 Cyst of pancreas; E86.0 Dehydration; R11.2 Nausea with vomiting, unspecified; K29.70 Gastritis, unspecified, without bleeding; K20.90 Esophagitis, unspecified without bleeding; E03.9 Hypothyroidism, unspecified; M85.80 Other specified disorders of bone density and structure, unspecified site; K21.9 Gastro-esophageal reflux disease without esophagitis; E78.5 Hyperlipidemia, unspecified; M19.90 Unspecified osteoarthritis, unspecified site; Z20.822 Contact with and (suspected) exposure to COVID-19; Z96.652 Presence of left artificial knee joint; Z85.3 Personal history of malignant neoplasm of breast; Z87.891 Personal history of nicotine dependence; Z87.11 Personal history of peptic ulcer disease
CPT/HCPCS: 36415; 70450; 70496; 70498; 70551; 74177; 80048; 80053; 81001; 82607; 82746; 83605; 83690; 83735; 84439; 84443; 84480; 85025; 85027; 87040; 87077; 87086; 87088; 87186; 87637; 93005; 93306; 96361; 96365; 96366; 96375; 96376; 97161; 97165; 97530; 99285; A9270; G0378; J0696; J2405; J2470; J2550; J3360; J7030; Q9967

== ENCOUNTER 2024-07-09 11:15 | Outpatient (RCR) | payer MEDICARE, SELFPAY ==
--- NOTE | 2024-06-11 16:06 | OPREHPOC ---
Outpatient Therapy Plan of Care This is a Multidisciplinary Plan of Care that may contain components documented by all disciplines (PT, OT, and ST.) PT Problem 1 PT Problem #1 Knowledge Deficit PT Goal 1 Goal / Goal Update * indep with HEP * pt voice basic understanding of vestibular system and management of her symptoms Target Visit 7 PT Problem 2 PT Problem #2 Impaired Vestibular Syste PT Goal 1 Goal / Goal Update improve vestibular system to improve mobility and safety with daily functional activities: 1* Dizziness Handicap Index rating of 20% limitation in activity level 2* pt report she is not taking any meclazine pt perform without any vestibular s/s: 3* supine to sitting 4* walking 20' with head turns R/L x 3 reps each 5* eye tracking R/L x 10 reps 6* gaze stabilization with head motions R/L x 10 reps 7* gaze stabilization with head motions up/down x 10 reps Target Visit 7
--- NOTE | 2024-06-11 16:06 | PTOPEVAL1 ---
Assessment and note entered by Eleonora Yadav, PT Evaluation Information Assessment Status Evaluation ICD-10 Condition Codes (PT) Dizziness & Giddiness R42 Onset May 20, 2024 Subjective Information hospitalized due to dizziness- all testing was negative with CT, MRI and cardiac work ups; doing the Clancy Daroff, 3 reps of motions, 2x/day and dizziness is less; HX: TIA, meds for thyroid, visual- have glasses to wear all time, use now only for reading, have not had eye exam > 2 years; decreased hearing--not had hearing test; no issues with sinus or BP, no neck pain or headaches; vestibular symptoms: now: less dizziness, not constant anymore: increase: turn head quickly to R or L- last few seconds; cannot lie flat in bed- have to elevate her head, this has always been an issue for her, now little worse; little dizzy with walking; Activity: using quad cane due to recent L TKR and sometimes wheeled walker due to dizziness and off balance; live alone, son assists PRN since TKR surgery--meds and meals, animal care; Reported Pain Level Pain Score 0: Self Report Additional Pain Score Comments no pain at rest, but pain due to L TKR with mobility Assessment PT Clinical Summary Neli has the diagnosis of vestibular rehab/ BPPV. She was hospitalized due to dizziness and testing was negative. She reports symptoms have decreased and less duration than initial onset. Dizziness has decreased since Apr hospitalization Dizziness Handicap Index rating of 66%. Her history includes: recent L TKR, poor standing position of neck/shoulders, decreased hearing, decreased vision- have not been to eye dr in over 2 years, TIA. With the evaluation: Horizontal Canal R BPPV, with eye tracking increasing her symptoms; neck position of forward head, side bend to R and slight rotation of cervical spine. Skilled PT services are indicated for vestibular therapy, to clear BPPV and further education and progression of safety and HEP education. Plan of Care Interventions Neuro Re-education,Patient/Caregiver Educati, Therapeutic Activities,Therapeutic Exercise PT Services Indicated Yes Treatment Frequency and 1-2x/wk for 7 total visits Duration These treatments will address the objective and functional deficits as defined above. The patient will be advanced safely and appropriately in order for the patient to progress towards his/her prior level of function. Additional exercises will be introduced and as well as a comprehensive home exercise program upon discharge, if needed, ?to ensure carryover of functional gains achieved in the clinic. This treatment plan has been reviewed and agreement upon by the patient.
--- NOTE | 2024-07-09 11:29 | PTOPDC ---
Assessment and note entered by Eleonora Yadav, PT Discharge Report Assessment Status Discharge ICD-10 Condition Codes (PT) Dizziness & Giddiness R42 Onset May 20, 2024 Subjective Information is driving again now; around the house is not using the cane when walking--walking is better; do use the cane when going out of the house, due to knee surgery; is having problems with her basement stairs, due to her L knee; have not taken any meclazine in over 1 week; has not scheduled an eye exam appt yet--is going to, but holding off due to cost; feel like ready to be done with therapy. Reported Pain Level Pain Score 0: Self Report Assessment PT Clinical Summary Neli has received 5 PT sessions. Compared to the initial evaluation: Dizziness Handicap Index rating from 66% to 6% limitation in activity level; is no longer taking meclazine; the only reported dizziness is with head motion to the L and gaze stabilization with head motions R/ L and the duration of dizziness or head funny feeling lasts few seconds only; she is indep with her HEP for standing balance activity and vestibular exercises. She continues to have pain in her L knee, which affects her balance and why she is using the cane. The PT goals were achieved. Discharge PT. She is to continue with her HEP. Plan of Care PT Services Indicated No
== END 2024-07-09 14:57 | disposition home or self-care (01) ==
LOC: ANHPT 11:15
PROVIDERS: PCP Family Medicine; Visit Provider Nurse Practitioner
DX: H81.11 Benign paroxysmal vertigo, right ear (principal)
CPT/HCPCS: 95992; 97110; 97112; 97161; 97530

== ENCOUNTER 2024-07-22 01:27 | Day surgery (SDC) | payer MEDICARE, SELFPAY ==
[2024-07-06 14:18] VITALS: BMI 25.5
[2024-07-22 09:22] VITALS: BP 149/74; PULSE 84; RESP 16; TEMP 36.2; O2SAT 98
[2024-07-22 09:26] VITALS: BMI 25.4
--- NOTE | 2024-07-22 10:10 | P.PNAN_ITS ---
Anes - Initial Pre Proc Eval Procedure: Operation Date: 07/22/24 10:30 Proposed Procedures p Esophagogastroduodenoscopy - Jordy Green MD Date/Time: 07/22/24 10:10 Surgeon: Jordy Green MD Pre Op Diagnosis: GERD,esophageal obstruction, Patient Data Age: 78 Gender: F Height: 1.68 m Weight: 71.7 kg Last Vital Signs Temp 97.1 F L 07/22/24 09:22 Pulse 84 07/22/24 09:22 Resp 16 07/22/24 09:22 BP 149/74 H 07/22/24 09:22 Pulse Ox 98 07/22/24 09:22 O2 Del Method Room Air 07/22/24 09:22 Allergies Allergy/AdvReac Type Severity Reaction Status Date / Time milk Allergy Unknown Headache Verified 07/22/24 09:19 Home Medications Medication Instructions Recorded Confirmed Type atorvastatin 40 mg tablet 40 mg PO DAILY #90 tabs 10/11/23 07/22/24 Rx melatonin 3 mg capsule 3 mg PO QHS 10/11/23 07/22/24 History magnesium 200 mg tablet 200 mg PO HS 04/20/24 07/22/24 History levothyroxine 25 mcg tablet 25 mcg PO DAILY #90 tabs 06/04/24 07/22/24 Rx metoclopramide HCl 5 mg tablet 5 mg PO Q6H PRN vomiting #20 tabs 06/24/24 07/22/24 Rx (Reglan) omeprazole 40 mg capsule,delayed 40 mg PO BID 1 month #60 caps 06/24/24 07/22/24 Rx release sucralfate 1 gram tablet (Carafate) 1 g PO ACHS #120 tabs 06/24/24 07/22/24 Rx Patient hx anesthesia problems: none Family hx anesthesia problems: none Results Review: All pre-operative results and documents have been reviewed as part of the pre- operative evaluation. [facility] Past Medical History Medical History Arthritis Benign paroxysmal positional vertigo Bilateral knee pain Breast cancer Cerebrovascular disease Diverticulitis large intestine Gastric ulcer GERD (gastroesophageal reflux disease) History of breast cancer Hyperlipidemia Hypothyroid Insomnia Osteopenia Thyroid disorder Surgical History Surgical History H/O hysterectomy for benign disease History of left knee replacement S/P removal of thyroid nodule Family History Family History Mother Diabetes mellitus Hypertension Stomach cancer Father Heart disease Grandparent Heart disease Grandparent Diabetes mellitus Heart disease Social History Social History Social History: She is and lives with her . She is a former smoker. She is retired. 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 The patient desires to be a full code. Smoking status: Never smoker Second hand tobacco smoke exposure: No Additional smoking assessment comments: quit approximately 60years ago Alcohol intake: current Drinks per week: 7 Alcohol use details: 1 glass of wine per day Substance use: never Substance use type: does not use Do You Feel Safe in your Home?: Yes Lack of Transportation: No Lack of Food: Never True Current Housing: I Have Housing Concerned About Future Housing: No Difficulty Paying Gas/Electric Bills: No Difficulty Paying for Meds: No Currently Unemployed: No Education: High School Diploma/GED Difficulty w/ Childcare or Family Care: No Living arrangements: alone Spiritual care concerns: No Anes - Eval Final PreProcedure Day of Procedure 07/22/24 10:10 Patient weight: normal Heart: regular rate and rhythm Lungs: clear to auscultation Airway: Mallampati scale class II Neurological: alert and oriented Last oral intake: >/= 8 hours ASA classification: III Emergent: no Anesthetic plan: proceed Anesthesia type and monitoring: general GIVS and standard monitoring Results Review: All pre-operative results and documents have been reviewed as part of the pre- operative evaluation. Informed Consent: The patient's anesthetic plan and its attendant risks and benefits were discussed with the patient/family/POA. Questions were solicited and answers provided to the satisfaction of the patient/family/POA.
[2024-07-22] MEDS: LACTATED RINGERS 1,000 ML 150 ML IV CONT (10:31)
--- NOTE | 2024-07-22 10:44 | PM.IMHP ---
H&P: HPI History of Present Illness Date/Time: 07/22/24 10:44 Chief Complaint: Nausea Narrative: this patient was seen in our office on 06/24/2024 complaining of chronic persistent nausea and occasional vomiting episodes. She had a EGD last year showing mild esophagitis and gastritis but no peptic ulcer disease. She is here for EGD. Review of Systems Review of Systems: All systems reviewed & are unremarkable except as noted in HPI and below PMFSH Past Medical History Medical History Arthritis Benign paroxysmal positional vertigo Bilateral knee pain Breast cancer Cerebrovascular disease Diverticulitis large intestine Gastric ulcer GERD (gastroesophageal reflux disease) History of breast cancer Hyperlipidemia Hypothyroid Insomnia Osteopenia Thyroid disorder Surgical History Surgical History H/O hysterectomy for benign disease History of left knee replacement S/P removal of thyroid nodule Family History Family History Mother Diabetes mellitus Hypertension Stomach cancer Father Heart disease Grandparent Heart disease Grandparent Diabetes mellitus Heart disease Social History Social History Social History: She is and lives with her . She is a former smoker. She is retired. 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 The patient desires to be a full code. Smoking status: Never smoker Second hand tobacco smoke exposure: No Additional smoking assessment comments: quit approximately 60years ago Alcohol intake: current Drinks per week: 7 Alcohol use details: 1 glass of wine per day Substance use: never Substance use type: does not use Do You Feel Safe in your Home?: Yes Lack of Transportation: No Lack of Food: Never True Current Housing: I Have Housing Concerned About Future Housing: No Difficulty Paying Gas/Electric Bills: No Difficulty Paying for Meds: No Currently Unemployed: No Education: High School Diploma/GED Difficulty w/ Childcare or Family Care: No Living arrangements: alone Spiritual care concerns: No Meds Home Medications and Allergies Home Medications Medication Instructions Recorded Confirmed Type atorvastatin 40 mg tablet 40 mg PO DAILY #90 tabs 10/11/23 07/22/24 Rx melatonin 3 mg capsule 3 mg PO QHS 10/11/23 07/22/24 History magnesium 200 mg tablet 200 mg PO HS 04/20/24 07/22/24 History levothyroxine 25 mcg tablet 25 mcg PO DAILY #90 tabs 06/04/24 07/22/24 Rx metoclopramide HCl 5 mg tablet 5 mg PO Q6H PRN vomiting #20 tabs 06/24/24 07/22/24 Rx (Reglan) omeprazole 40 mg capsule,delayed 40 mg PO BID 1 month #60 caps 06/24/24 07/22/24 Rx release sucralfate 1 gram tablet (Carafate) 1 g PO ACHS #120 tabs 06/24/24 07/22/24 Rx Allergies Allergy/AdvReac Type Severity Reaction Status Date / Time milk Allergy Unknown Headache Verified 07/22/24 09:19 Vital Signs Vital Signs - 24 hr 07/22/24 09:22 Temperature 97.1 F L Pulse Rate 84 Respiratory Rate 16 Blood Pressure 149/74 H Pulse Oximetry 98 Oxygen Delivery Room Air Exam Const: General: cooperative and healthy appearing Resp: Effort & Inspection: normal respiratory effort and able to speak in complete sentences Auscultation: clear to auscultation bilaterally Cardio: Rate: regular rate Rhythm: regular rhythm GI: Inspection: normal to inspection GI Palp: No No hepatosplenomegaly present Auscultation: normal bowel sounds Rectal Exam: deferred Skin: General skin exam: normal color Psych: Appearance: grossly normal Mental Status: mental status grossly normal Assessment and Plan Assessment and plan (1) Vomiting: Code(s): R11.10 - Vomiting, unspecified Status: Acute Assessment and Plan: The patient is deemed a good candidate for the procedure. Consent signed. Will proceed.
[2024-07-22 11:02] VITALS: BP 161/72; PULSE 78; RESP 25; O2SAT 98
[2024-07-22 11:12] VITALS: BP 152/83; PULSE 69; RESP 18; O2SAT 98
== END 2024-07-22 11:30 | disposition home or self-care (01) ==
PROVIDERS: PCP Family Medicine; Referring Provider Nurse Practitioner; Visit Provider Internal Medicine Gastroenterology
PROC: 0DJ08ZZ Inspection of Upper Intestinal Tract, Via Natural or Artificial Opening Endoscopic (ICD-10-PCS; CPT 43235; principal; 2024-07-22 10:30)
DX: K29.30 Chronic superficial gastritis without bleeding (principal); K44.9 Diaphragmatic hernia without obstruction or gangrene; K21.9 Gastro-esophageal reflux disease without esophagitis; E78.5 Hyperlipidemia, unspecified; E03.9 Hypothyroidism, unspecified; Z85.3 Personal history of malignant neoplasm of breast
CPT/HCPCS: 43239; 88305; J2704; J7120

== ENCOUNTER 2024-07-27 16:12 | Outpatient (CLI) | payer MEDICARE, SELFPAY ==
[2024-07-27 17:13] LABS: CRP < 0.5 mg/dL (<1.0)
[2024-07-27 17:38] LABS: Erythrocyte Sedimentation Rate 12 mm/hr (0-20)
== END 2024-07-27 16:13 | disposition home or self-care (01) ==
LOC: ANHLAB 16:13
PROVIDERS: PCP Family Medicine; Visit Provider Orthopaedic Surgery
DX: Z96.652 Presence of left artificial knee joint (principal)
CPT/HCPCS: 36415; 85652; 86140

== ENCOUNTER 2024-08-17 12:01 | Outpatient (CLI) | payer MEDICARE, SELFPAY ==
--- NOTE | ~2024-08-17 | XR_ITS ---
XR shoulder RT min 2V Ordering provider: Gali Turner, MARCO A History: . pain in RT shoulder; RT shoulder OA NO INJURY . Comparison: None. FINDINGS: BONES: No acute fracture or dislocation. JOINT SPACES: The acromioclavicular joint is normal. The glenohumeral joint is normal. SOFT TISSUES: Normal. IMPRESSION: No acute osseous abnormality right shoulder. Reviewed, dictated and finalized at location A. CONTROL CLERK
[2024-08-17 13:09] LABS: Thyroid Stimulating Hormone < 0.015 uIU/mL (0.465-4.680)
[2024-08-17 13:41] LABS: Free T4 Free Thyroxine 1.37 ng/dL (0.78-2.19)
== END 2024-08-17 12:02 | disposition home or self-care (01) ==
PROVIDERS: PCP Family Medicine; Visit Provider Student in an Organized Health Care Education/Training Program
DX: M19.011 Primary osteoarthritis, right shoulder (principal); E03.9 Hypothyroidism, unspecified; G47.00 Insomnia, unspecified
CPT/HCPCS: 36415; 73030; 84439; 84443

== ENCOUNTER 2024-08-24 12:30 | Outpatient (RCR) | payer MEDICARE, SELFPAY ==
--- NOTE | 2024-08-20 17:40 | OPREHPOC ---
Outpatient Therapy Plan of Care This is a Multidisciplinary Plan of Care that may contain components documented by all disciplines (PT, OT, and ST.) PT Problem 1 PT Problem #1 Knowledge Deficit PT Goal 1 Goal / Goal Update [place] with HEP Target Visit 4 PT Goal 2 Goal / Goal Update Demonstrate 2 cm+ reduction in joint line edema Target Visit 4 PT Problem 2 PT Problem #2 Impaired Range of Motion PT Goal 1 Goal / Goal Update Achieve terminal left knee extension for improved terminal gait Target Visit 4 PT Problem 3 PT Problem #3 Impaired Strength PT Goal 1 Goal / Goal Update Improve nicola hip abduction strength to 4/5 to improve lateral stability with gait and transfers to reduce stress on knee Target Visit 4
--- NOTE | 2024-08-20 17:40 | PTOPEVAL1 ---
Assessment and note entered by Mumtaz Maritno, PT Evaluation Information Assessment Status Evaluation Diagnosis Z96.652 Post Left knee Arthroplasty ICD-10 Condition Codes (PT) Pain in left knee M25.562 Onset 04/16/24 Subjective Information Reports that she has knee replacement in March. She has had a lot of issues since surgery with inflammation. She recently started steroids and feels that they has immensely helped. She has history of stomach ulcers and was not allowed to take pain medication or anti inflammatory. Reports that she has not been sleeping well but also has bladder issues causing her to get up at night. Some radiating pain into the ankle and andrew as well. At times feels she is dragging her foot. Reported Pain Level Pain Score 0: Self Report Assessment PT Clinical Summary Patient presents with knee edema, altered gait, and decreased terminal extension of left knee. We heavily discussed presence of terminal operator knee swelling and altering exercise plan to reduce direct stress on the knee and implement exercise into hop and ankle to allow knee decompression during steroid regimen. She demonstrates weakness of nicola hips and ankles and will benefit form skilled therapy to guide program to improve function while emphasis is placed on reducing knee edema. Plan of Care Interventions Gait Training,Manual Therapy PT Services Indicated Yes Treatment Frequency and 2x/week for 4 visits Duration These treatments will address the objective and functional deficits as defined above. The patient will be advanced safely and appropriately in order for the patient to progress towards his/her prior level of function. Additional exercises will be introduced and as well as a comprehensive home exercise program upon discharge, if needed, ?to ensure carryover of functional gains achieved in the clinic. This treatment plan has been reviewed and agreement upon by the patient.
--- NOTE | 2024-11-03 10:32 | PTOPDC ---
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 Assessment PT Clinical Summary Neli received the PT evaluation on Aug 20 and one treatment session on . She did not return for any further treatment. Discharge PT due to pt stopped attending. The goals were not addressed. Plan of Care PT Services Indicated No
== END 2024-11-03 12:25 | disposition home or self-care (01) ==
LOC: ANHPT 12:30
PROVIDERS: PCP Family Medicine
DX: Z96.652 Presence of left artificial knee joint (principal)
CPT/HCPCS: 97110; 97140; 97161

== ENCOUNTER 2024-09-21 13:02 | Outpatient (CLI) | payer MEDICARE, SELFPAY ==
--- OUTSIDE RECORDS SUMMARY | 2024-09-21 13:44 | XMS_ITS | Encounter Summary ---
Author Organization [facility] Facility Care Team Providers Care Editor Magazine Name Role Phone Radha Jay MD Primary Care Pro vider Pavel Ferrear DO Unavailable [phone] Gail Brice MD Unavailable [phone] Denny Denney MD Unavailable [phone] Gail Brice MD Unavailable [phone] Frances Duncan NP Primary Care Provider [phone] Aarti Starks MD Primary Care Provider [phone] Encounter Details Date Type Department Care Team (Latest Contact Info) Description 09/26/2016 Orders Only [facility] CLINCONV Provider, MD Lilian [address] [place] [id number] Social History Tobacco Use Types Packs/Day Years Used Date Smoking Tobacco: Former Alcohol Use Standard Drinks/Week Comments Yes 0 (1 standard drink = 0.6 oz pur e alcohol) Comments Unknown Sex and Gender Information Value Date Recorded Sex Assigned at Not on file Legal Sex Female 12:15 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 us Historical Provider Final Res ult documented in this encounter Visit Diagnoses Not on filedocumented in this encounter Care Teams Editor Magazine Relationship Specialty Start Date End Date Radha Jay MD PCP - General Family Medicine 05/03/20 02/25/24 Frances Duncan, GREENHOUSE INSTRUCTOR [address] [place] [address] PCP - General Behavioral Therapist 02/26/24 08/23/24 Aarti Starks MD [address] [place] [address] [place] [address] PCP - General Family Medicine 08/24/24 Pavel Ferrera DO [address] [place] [address] MEDICAL ONCOLOGY, [facility] [address] [place] [address] Medical Oncologist/Hematologis t Hematology and Oncology 12/26/22 Gail Brice MD [address] [place] [address] MEDICAL ONCOLOGY, [facility] [address] [place], [place] [address] Radiation Oncologist Radiation Oncology 12/26/22 Denny Denney MD [facility] [address] [place], [place] [address] Surgeon General Surgery 12/26/22 Gail Brice MD [address] [place] [address] [address] [place], [place] [address] Radiation Oncologist Radiation Oncology 10/24/23 documented as of this encounter
--- OUTSIDE RECORDS SUMMARY | 2024-09-21 13:44 | XMS_ITS | Encounter Summary ---
Author Organization [facility] Facility Care Team Providers Care Tax Auditor Name Role Phone Radha Jay MD Primary Care Pro vider Pavel Ferrera DO Unavailable [phone] Gail Brice MD Unavailable [phone] Denny Denney MD Unavailable [phone] Gail Brice MD Unavailable [phone] Frances Duncan NP Primary Care Provider [phone] Aarti Starks MD Primary Care Provider [phone] Encounter Details Date Type Department Care Team (Latest Contact Info) Description 02/20/2016 Orders Only [facility] CLINCONV Provider, MD Lilian [address] [place] [address] Social History Tobacco Use Types Packs/Day Years Used Date Smoking Tobacco: Former Alcohol Use Standard Drinks/Week Comments Yes 0 (1 standard drink = 0.6 oz pur e alcohol) Comments Unknown Sex and Gender Information Value Date Recorded Sex Assigned at Not on file 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 Historical Provider Final Res ult * SCAN - LABS (02/20/2016 12:00 AM CDT) Narrative 02/20/2016 12:00 AM CDT Ordered by an unspecified provider. Historical Provider Final Res ult * SCAN - LABS (02/20/2016 12:00 AM CDT) Narrative 02/20/2016 12:00 AM CDT Ordered by an unspecified provider. [facility] Provider Final Res ult * SCAN - LABS (02/20/2016 12:00 AM CDT) Narrative 02/20/2016 12:00 AM CDT Ordered by an unspecified provider. [facility] Provider Final Res ult documented in this encounter Visit Diagnoses Not on filedocumented in this encounter Care Teams Tax Auditor Relationship Specialty Start Date End Date Radha Jay MD PCP - General Family Medicine 05/03/20 02/25/24 Frances Duncan NP [address] [place] [address] PCP - General Oriental Rug Repairer 02/26/24 08/23/24 Aarti Starks MD [address] [place] [address] [place] [address] PCP - General Family Medicine 08/24/24 Pavel Ferrera DO [address] [facility] MEDICAL ONCOLOGY, [facility] [address] [place] [address] Medical Oncologist/Hematologis t Hematology and Oncology 12/26/22 Gail Brice MD [facility] MEDICAL ONCOLOGY, [facility] [address] [place] [address] Radiation Oncologist Radiation Oncology 12/26/22 Denny Denney MD [address] [place] [address] [address] [place], [place] [id number] Surgeon General Surgery 12/26/22 Gail Brice MD [address] [place] [address] [address] [place], [place] [address] Radiation Oncologist Radiation Oncology 10/24/23 documented as of this encounter
--- OUTSIDE RECORDS SUMMARY | 2024-09-21 13:44 | XMS_ITS | Clinical Summary ---
Author Organization [facility] Address [address] [facility] [place] [address] [place] [address] Phone Care Team Providers Care Strip Mill Operator Name Role Phone [facility], External Provider Primary Care Provider U navailable Allergies No known active allergies Medications atorvastatin (LIPITOR) 20 mg Oral tablet Take 1 Tab by mouth Daily LATE. 30 Tab 5 06/22/2011 Active Active Problems Patient Care Coordination No te Formatting of this note migh t be different from the original. Help Desk Rep - Dr Macario Kidd Problem Noted Date Diagnosed Date Chest pain, precordial 06/22/2011 History of CVA (cerebrovascular accident) 2010 Overview (06/22/2011): Patient had unusual dizzy spell. MRI suggested a prior CVA. Exertional dyspnea 06/22/2011 Elevated BP 06/22/2011 Hypothyroid 06/22/2011 Overview (06/22/2011): S/p partial thyroidectomy Overweight (BMI 25.0-29.9) 06/22/2011 Family History Medical History Relation Name Comments Heart Disease Father CABG at age 63 yo with re-do 8 yrs later Diabetes Mother Relation Name Status Comments Father Mother Social History Tobacco Use Types Packs/Day Years Used Date Smoking Tobacco: Never Alcohol Use Standard Drinks/Week Comments Yes 0.8 (1 standard drink = 0.6 oz p ure alcohol) Comments Unknown Sex and Gender Information Value Date Recorded Sex Assigned at Not on file Legal Sex Female 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 Gender Identity Not on file Sexual Orientation Not on file Last Filed Vital Signs Vital Sign Reading Time Taken Comments Blood Pressure 162/92 06/22/2011 8:01 AM CDT Pulse 64 06/22/2011 8:01 AM CDT Temperature - - Respiratory Rate - - Oxygen Saturation - - Inhaled Oxygen Concentration - - Weight 77.1 kg (170 lb) 06/22/2011 8:01 AM CDT Height 165.1 cm (5' 5 ) 06/22/2011 8:01 AM CDT Body Mass Index 28.29 06/22/2011 8:01 AM CDT Plan of Treatment Health Maintenance Due Date Last Done Comments DTAP/TDAP/TD VACCINES (1 - Tdap) 1963 PNEUMOCOCCAL VACCINE 65+ YEARS (1 of 1 - PCV) 09/29/18 95 ZOSTER VACCINE (1 of 2) 1994 OSTEOPOROSIS SCREENING 2009 RSV VACCINE (60+ or ) (1 - 1-dose 75+ series) 2019 INFLUENZA VACCINE (#1) 2024 Insurance MEDICARE PART A AND B [facility] Care Teams Strip Mill Operator Relationship Specialty Start Date End Date [facility], External Provider [address] [place] [address] PCP - General 09/25/11
--- OUTSIDE RECORDS SUMMARY | 2024-09-21 13:44 | XMS_ITS | Clinical Summary ---
Author Organization [facility] Address [address] [place] [address]. [place], [place] [address] [place] [address] Care Team Providers Care Pattern Setter Name Role Phone Dakota Frances Porter EMERGENCY VETERINARY TECHNICIAN Primary Care Provider [phone] Allergies Active Allergy Reactions Criticality Noted Date Comments Milk (Cow) Nausea Only Low 05/03/2020 Medications MAGNESIUM OR Take 200 mg by mouth daily. Active SYNTHROID 25 MCG tablet Take 1 tablet (25 mcg total) by mouth every morning. 3 Active atorvastatin (LIPITOR) 40 MG tablet Take 1 tablet (40 mg total) by mouth daily. 3 Active acetaminophen (TYLENOL) 325 MG tablet Take 2 tablets (650 mg total) by mouth. 3 Active omeprazole (PRILOSEC) 20 MG capsule 3 Active diclofenac sodium (VOLTAREN) 1 % gel Apply 2 g topically 3 (three) times daily. 3 Active traMADol (ULTRAM) 50 MG tabletIndicatio ns:Chronic Pain Take 1 tablet (50 mg total) by mouth every 6 (six) hours as needed for Pain. 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 Currently taking Levothyroxine 25mcg M-F & 50mcg on Sat/Sun. Will update TFTs today. Does not mychart. Verified phone #/address to contact re: results. Reviewed medication scheduling: aware to take 1st thing in morning, 30-60 minutes before food/drink/other medications. No changes at this time. Hearing loss 05/03/2020 Overview (07/08/2023): Last Assessment & Plan: Unable to afford hearing aids Memory impairment 08/03/2015 Overview (07/08/2023): Last Assessment & Plan: SLUMS 29 today, wnl B12 levels within normal limits Tsh at goal Continue to monitor Mixed anxiety depressive disorder 08/03/2015 Overview (07/08/2023): Last Assessment & Plan: PHQ Screening PHQ-2 Total Score (If total score is 3 or more points, staff should administer the PHQ-9): 0 PHQ-9 Total Score: 8 Denies Discussed healthy diet, regular exercise and prioritizing good sleep Nausea 04/21/2015 Osteoarthritis of right knee 03/24/2015 Hyperlipidemia 09/03/2014 Overview (07/08/2023): Last Assessment & Plan: Continue 40mg atorvastatin Fatigue 08/13/2014 Insomnia 08/13/2014 Acquired hypothyroidism 06/22/2011 Overview (07/08/2023): S/p partial thyroidectomy Exertional dyspnea 06/22/2011 Immunizations Name Administration Dates Next Due Pneumococcal (Pneumovax 23) 06/03/2020 Pneumococcal (Prevnar 13) 06/08/2021 Family History Medical History Relation Comments Heart Father bypass Father Heart Maternal Grandfather Diabetes Maternal Grandmother Cancer Mother stomach Diabetes Mother Hypertension Mother Diabetes Paternal Grandfather Heart Paternal Grandfather Diabetes Paternal Grandmother Heart Paternal Grandmother Heart Sister palpitations Hypertension Sister Relation Status Comments Father Maternal Grandfather Maternal Grandmother Mother Paternal Grandfather Paternal Grandmother Sister Alive Social History Tobacco Use Types Packs/Day Years Used Date Smoking Tobacco: Former Cigarettes Passive Smoke Exposure: Never Smokeless Tobacco: Never Tobacco Cessation:Counseling Given: No Comments:Socially when she was younger Alcohol Use Standard Drinks/Week Comments Yes 11.7 (1 standard drink = 0.6 oz pure alcohol) PHQ-2 Answer Date Recorded Patient Health Questionnaire-2 Score 0 07/08/2023 Comments No Sex and Gender Information Value Date Recorded Sex Assigned at Not on file Legal Sex Female 8:10 PM CDT Gender Identity Not on file Sexual Orientation Not on file Last Filed Vital Signs Vital Sign Reading Time Taken Comments Blood Pressure 156/87 09/12/2023 10:07 AM GLAZING DEPARTMENT SUPERVISOR Pulse 68 09/12/2023 10:05 AM GLAZING DEPARTMENT SUPERVISOR Temperature 36.7 ??C (98.1 ??F) 09/12/2023 10:[address] Respiratory Rate 16 09/12/2023 10:05 AM GLAZING DEPARTMENT SUPERVISOR Oxygen Saturation 98% 09/12/2023 10:05 AM GLAZING DEPARTMENT SUPERVISOR Inhaled Oxygen Concentration - - Weight 76.7 kg (169 lb) 09/12/2023 10:05 AM GLAZING DEPARTMENT SUPERVISOR Height 165.1 cm (5' 5 ) 09/12/2023 10:05 AM GLAZING DEPARTMENT SUPERVISOR Body Mass Index 28.12 09/12/2023 10:05 AM GLAZING DEPARTMENT SUPERVISOR Plan of Treatment Health Maintenance Due Date Last Done Comments EGD-Mckeon's Surveillance 1944 Hepatitis C 1962 DTaP, Tdap and Td Vaccines ( 1 - Tdap) 1963 Zoster Vaccines (1 of 2) 1994 Dexa Scan (General) 2009 RSV Immunization or 60+ Years (1 - 1-dose 75+ series) 2019 COVID-19 Vaccine (3 - 2023-2 5 season) 2024 11/20/2020, 10/23/2020 Influenza Adult (#1) 2024 PHQ-2 (Physician [place]) 07/08/2024 07/08/2023 PHQ-2 (Physician [place]) 08/26/2024 07/08/2023 Annual Medicare Wellness Visit 04/08/2025 Postponed from 09/29 (Patient Refused) Pneumococcal Vaccine: 65+ Years Completed 06/08/2021, 06/03/2020 Meningococcal B Vaccine Aged Out No l onger eligible based on patient's age to complete this topic Meningococcal Vaccine Aged Out No whitney kiel eligible based on patient's age to complete this topic RSV Immunizations Under 20 Months Aged Out No longer eligible b ased on patient's age to complete this topic Insurance [facility] Care Teams Pattern Setter Relationship Specialty Start Date End Date Frances Duncan NP [address] [place] [address] PCP - General Nurse Practitioner Family 07/08/23
--- OUTSIDE RECORDS SUMMARY | 2024-09-21 13:44 | XMS_ITS | Encounter Summary ---
Author Organization [facility] Address [address] [place] [address] Care Team Providers Care Dull Coat Mill Operator Name Role Phone Radha Jay MD Primary Care Pro vider Pavel Ferrera DO Unavailable [phone] Denny Denney MD Unavailable [phone] Gail Brice MD Unavailable [phone] Frances Duncan NP Primary Care Provider [phone] Aarti Starks MD Primary Care Provider [phone] Encounter Details Date Type Department Care Team (Late st Contact Info) Description 11/26/2023 Telephone [facility] Medical Group Primary Care at [address] [address] Radha Jay MD [address] [place] [address] Social History Tobacco Use Types Packs/Day Years Used Date Smoking Tobacco: Never Smokeless Tobacco: Never Alcohol Use Standard Drinks/Week Comments Yes 7 (1 standard drink = 0.6 oz pur e alcohol) AUDIT-C Answer Date Recorded Q1: How often do you have a drink containing alcohol? 4 or more times a week 01/07/2023 Q2: How many drinks containi ng alcohol do you have on a typical day when you are drinking? 1 or 2 Q3: How often do you have si x or more drinks on one occasion? Never 01/07/2023 PHQ-2 Answer Date Recorded PHQ-2 Total Score (If total score is 3 or more points, staff should administer the PHQ-9) 0 01/15/2023 Personal Safety Answer Date Recorded Have you ever been in or are you currently in a harmful physical or emotional relationship or is someone making you feel afraid or unsafe? Denies 01/07/2023 Comments No Sex and Gender Information Value Date Recorded Sex Assigned at Not on file Legal Sex Female 12:15 AM BREEDING MANAGER Gender Identity Not on file Sexual Orientation Not on file documented as of this encounter Plan of Treatment Not on file documented as of this encounter Visit Diagnoses Not on filedocumented in this encounter Care Teams Dull Coat Mill Operator Relationship Specialty Start Date End Date Radha Jay MD PCP - General Family Medicine 05/03/20 02/25/24 Frances Duncan NP [address] [place] [id number] PCP - General Chaser Helper 02/26/24 08/23/24 Aarti Starks MD [address] [place] [address] [place] [address] PCP - General Family Medicine 08/24/24 Pavel Ferrera DO [address] [place] [address] MEDICAL ONCOLOGY, [facility] [address] [place], [place] [id number] Medical Oncologist/Hematologis t Hematology and Oncology 12/26/22 Denny Denney MD [address] [place] [address] [address] [place], [place] [id number] Surgeon General Surgery 12/26/22 Gail Brice MD [address] [place] [address] [address] [place], [place] [id number] Radiation Oncologist Radiation Oncology 10/24/23 documented as of this encounter
--- OUTSIDE RECORDS SUMMARY | 2024-09-21 13:44 | XMS_ITS | Encounter Summary ---
Author Organization [facility] Address [address] [facility] [place] [address] Care Team Providers Care Auto Motor Mechanic Name Role Phone Radha Jay MD Primary Care Pro vider Stiven Brody MD Unavailable [phone] Reason for Visit * Reason Comments Follow-up Rv- Left KneeSurgery L TKA 04-16-24 5 months out Encounter Details Date Type Department Care Team (Late st Contact Info) Description 09/21/2024 11:45 AM MANAGER MECHANICAL Office Visit [facility] Orthopedics [address] [facility], [address] [address] Jarocho Washington, PUBLIC WORKS DIRECTOR-[facility] [address] [address] Aftercare following left knee joint replacement surgery (Primary Dx) Social History Tobacco Use Types Packs/Day Years Used Date Smoking Tobacco: Never Smokeless Tobacco: Never Alcohol Use Standard Drinks/Week Comments Yes 0 (1 standard drink = 0.6 oz pur e alcohol) glass of wine daily Overall Financial Resource Strain (CARDIA) Answe r Date Recorded How hard is it for you to pa y for the very basics like food, housing, medical care, and heating? Not hard at all 04/16/2024 PHQ-2 Answer Date Recorded Patient Health Questionnaire-2 Score 2 09/21/2024 [facility] - Occupational Stress Questionnaire Answer Date Recorded Do you feel stress - tense, restless, nervous, or anxious, or unable to sleep at night because your mind is troubled all the time - these days? Not at all 04/16/2024 Hunger Vital Sign Answer Date Recorded Within the past 12 months, y ou worried that your food would run out before you got the money to buy more. Never true 04/16/20 24 Within the past 12 months, t he food you bought just didn't last and you didn't have money to get more. Never true 04/16/2024 PRAPARE - Transportation Answer Date Re corded In the past 12 months, has l ack of transportation kept you from medical appointments or from getting medications? No 03/27 In the past 12 months, has l ack of transportation kept you from meetings, work, or from getting things needed for daily living? No 04/16/2024 Housing Stability Vital Sign Answer Henrique e Recorded In the last 12 months, was t here a time when you were not able to pay the mortgage or rent on time? No 04/16/2024 In the last 12 months, how many places have you lived? 2 04/16/2024 In the last 12 months, was t here a time when you did not have a steady place to sleep or slept in a alf (including now)? No 04/16/2024 Sex and Gender Information Value Date Recorded Sex Assigned at Not on file Gender Identity Not on file Sexual Orientation Not on file documented as of this encounter Plan of Treatment Upcoming Encounters Date Type Department Care Team (Late st Contact Info) Description 11/03/2024 1:20 PM CDT Office Visit [facility] Orthopedics [address] [address] [place] [address] [address] Scheduled Orders Name Type Priority Associated Diagnoses Orde r Schedule ERYTHROCYTE SEDIMENTATION RATE Lab Routine Aftercare following left knee joint replacement surgery Ordered: 09/21/2024 C-REACTIVE PROTEIN Lab Routine Aftercare following left knee joint replacement surgery Ordered: 09/21/2024 documented as of this encounter Visit Diagnoses Diagnosis Aftercare following left knee joint replacement surgery- Primary documented in this encounter Care Teams Auto Motor Mechanic Relationship Specialty Start Date End Date Radha Jay MD [address] [address] PCP - General Family Medicine 11/12/23 [place] [address] [place] [address] Surgeon Orthopedic Surgery 11/12/23 documented as of this encounter
--- OUTSIDE RECORDS SUMMARY | 2024-09-21 13:44 | XMS_ITS | Encounter Summary ---
Author Organization [facility] Care Team Providers Care Monkey Keeper Name Role Phone Radha Jay MD Primary Care Pro vider Pavel Ferrera DO Unavailable [phone] Gail Brice MD Unavailable [phone] Denny Denney MD Unavailable [phone] Gail Brice MD Unavailable [phone] Frances Duncan NP Primary Care Provider [phone] Aarti Starks MD Primary Care Provider [phone] Encounter Details Date Type Department Care Team (Latest Contact Info) Description 04/09/2016 Orders Only [facility] CLINCONV Provider, MD Lilian [address] [place] [address] Social History Tobacco Use Types Packs/Day Years Used Date Smoking Tobacco: Former Alcohol Use Standard Drinks/Week Comments Yes 0 (1 standard drink = 0.6 oz pur e alcohol) Comments Unknown Sex and Gender Information Value Date Recorded Sex Assigned at Not on file Legal Sex Female 12:15 AM SALES OFFICER Gender Identity Not on file Sexual Orientation Not on file documented as of this encounter Plan of Treatment Not on file documented as of this encounter Procedures Procedure Name Priority Date/Time Associated Diagnosis Comments SCAN - LABS 04/09/2016 12:00 AM CDT SCAN - LABS 04/09/2016 12:00 AM CDT documented in this encounter Results * SCAN - LABS (04/09/2016 12:00 AM CDT) Narrative 04/09/2016 12:00 AM CDT Ordered by an unspecified provider. Historical Provider Final Res ult * SCAN - LABS (04/09/2016 12:00 AM CDT) Narrative 04/09/2016 12:00 AM CDT Ordered by an unspecified provider. Historical Provider Final Res ult documented in this encounter Visit Diagnoses Not on filedocumented in this encounter Care Teams Monkey Keeper Relationship Specialty Start Date End Date Radha Jay MD PCP - General Family Medicine 05/03/20 02/25/24 Frances Duncan NP [address] [place] [id number] PCP - General Field Staff 02/26/24 08/23/24 Aarti Starks MD [address] [facility] [place] [address] PCP - General Family Medicine 08/24/24 Pavel Ferrera DO [address] [place] [address] MEDICAL ONCOLOGY, [address] [id number] Medical Oncologist/Hematologis t Hematology and Oncology 12/26/22 Gail Brice MD [address] [place] [address] MEDICAL ONCOLOGY, [address] [id number] Radiation Oncologist Radiation Oncology 12/26/22 Denny Denney MD [address] [place] [address] Surgeon General Surgery 12/26/22 Gail Brice MD [address] [place] [address] Radiation Oncologist Radiation Oncology 10/24/23 documented as of this encounter
--- OUTSIDE RECORDS SUMMARY | 2024-09-21 13:44 | XMS_ITS | Clinical Summary ---
Author Organization [facility] at the Medical Office Building Address [address] [place] [address] Care Team Providers Care Panelboard Operator Name Role Phone Pavel Ferrera Unavailable [phone] Denny Denney MD Unavailable [phone] Gail Brice MD Unavailable [phone] Aarti Starks MD Primary Care Provider [phone] Allergies Active Allergy Reactions Criticality Noted Date Comments Casein Nausea And Vomiting 04/16/2024 Milk Nausea only Low 05/03/2020 Medications magnesium gluconate 200 mg tabletIndications: hypomagnesemia Take 1 tablet (200 mg total) by mouth nightly Active acetaminophen (TYLENOL) 325 mg tabletIndications: Fever,Pain Take 2 tablets (650 mg total) by mouth every 4 (four) hours as needed for pain, headaches or fever 30 tablet 08/29/19 23 Active ibuprofen (ADVIL,MOTRIN) 200 mg tab/capIndications :Anti-inflammatory ,Pain Take 1 tablet/capsule (200 mg total) by mouth every 6 (six) hours as needed for pain 2 every 6 hours prn Active atorvastatin (LIPITOR) 40 mg tablet Take 1 tablet (40 mg total) by mouth daily 90 tablet 3 12/14/19 23 Active dowiq-3-hrw-epa-dp a-fish oil 1,050-1,200 mg capsule Take 1 capsule by mouth daily Active mupirocin (BACTROBAN) 2 % ointmentIndication s:Impetigo Apply topically 3 (three) times a day 22 g 04/16/20 23 Active omeprazole (PriLOSEC) 40 mg capsule Take 1 capsule (40 mg total) by mouth daily 90 capsule 06/28/20 23 Active diclofenac sodium (VOLTAREN) 1 % gelIndications:Ost eoarthritis of the Knee Apply 2 g topically 3 (three) times a day 200 g 11/28/19 24 Active ascorbic acid (VITAMIN C) 1,000 mg tablet Take 1 tablet (1,000 mg total) by mouth daily Active aspirin 81 mg enteric coated tablet TAKE 1 (ONE) TABLET BY MOUTH 2 TIMES DAILY FOR 42 DAYS TAKE FOR BLOOD CLOT PREVENTION 04/16/20 24 025 Active cholecalciferol 25 mcg (1,000 unit) tablet Take 2 tablets (2,000 Units total) by mouth daily Active meclizine (ANTIVERT) 25 mg tablet TAKE 1 TABLET BY MOUTH FOUR TIMES DAILY NEEDED FOR DIZZINESS 06/02/20 24 Active melatonin tablet Take 1 tablet (3 mg total) by mouth nightly Active Mobic 15 mg tablet Take 1 tablet (15 mg total) by mouth daily 08/17/20 24 Active ondansetron ODT (ZOFRAN-ODT) 4 mg disintegrating tablet DISSOLVE ONE TABLET BY MOUTH EVERY 6 TO 8 HOURS NEEDED 05/21/20 24 Active Synthroid 25 mcg tabletIndications: Postoperative hypothyroidism Take 1 tablet by mouth Saturday through Saturday. Take 2 tablets on Saturdays and Sundays 30 tablet 08/24/20 24 Active traMADoL (ULTRAM) 50 mg tablet Take 1 tablet (50 mg total) by mouth every 6 (six) hours as needed 09/12/19 24 024 Discontin ued(Thera py completed ) Synthroid 25 mcg tabletIndications: Postoperative hypothyroidism Take 1 tablet by mouth Saturday through Saturday. Take 2 tablets on Saturdays and Sundays 40 tablet 6 12/04/19 24 Discontin ued(Reord er) metoclopramide (REGLAN) 5 mg tablet TAKE 1 TABLET BY MOUTH EVERY 6 HOURS NEEDED FOR VOMITING 06/24/20 24 Discontin ued(Alter leann therapy) sucralfate (CARAFATE) 1 gram tablet TAKE 1 TABLET BY MOUTH BEFORE MEALS AND AT BEDTIME 06/24/20 24 024 Discontin ued(Thera py completed ) methylPREDNISolone (MEDROL DOSEPACK) 4 mg Dosepack FOLLOW PACKAGE DIRECTIONS 07/27/20 24 024 Discontin ued(Thera py completed ) Synthroid 25 mcg tabletIndications: Postoperative hypothyroidism Take 1 tablet by mouth Saturday through Saturday. 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 02/28/2023 Assessment & Plan (02/28/2023 4:20 PM CDT): Continue omeprazole, given asymptomatic will decrease to 20mg Ductal carcinoma in situ (DCIS) of left breast 0 12/26/2022 Cancer Staging:Clinical stage from 01/02/2023:Stage 0(cTis (DCIS), cN0, cM0, ER: Not Assessed, GA: Not Assessed, HER2: Not Assessed) - Signed by Gail Brice MD on 01/02/2023 Malignant neoplasm of upper- outer quadrant of right breast in female, estrogen receptor positive 12/14/2022 Cancer Staging:Clinical stage from 01/02/2023:Stage IA(cT1b, cN0, cM0, G1, ER+, GA+, HER2-) - Signed by Gail Brice MD on 01/02/2023 Pathologic stage from 02/13/2023:Stage Unknown(pT1b, pNX, G1, ER+, GA+, HER2-) - Signed by Gail Brice MD on 02/13/2023 Diverticulitis 08/28/2022 Low bone mass 06/08/2021 Assessment & Plan (12/13/2021 1:58 PM CDT): With high fracture risk Continue fosamax At high risk for fracture 06/08/2021 Medicare annual wellness visit, subsequent 06/03 Assessment & Plan (06/13/2022 11:22 AM CDT): Reviewed PMH & PHQ Screening PHQ-2 Total Score (If total score is 3 or more points, staff should administer the PHQ-9): 0 Hearing/vision screening reviewed, referrals placed as needed Fall risk reviewed Reviewed medications and supplements Specialists: orthopedics, endocrine no evidence of cognitive impairment HCM: orders placed as needed Assessment & Plan (06/08/2021 2:25 PM CDT): Reviewed PMH & PHQ Screening PHQ-2 Total Score (If total score is 3 or more points, staff should administer the PHQ-9): 0 Hearing/vision screening reviewed, referrals placed as needed Fall risk reviewed Reviewed medications and supplements Specialists: endocrine, orthopedics evidence of cognitive impairment HCM: orders placed as needed Assessment & Plan (06/03/2020 9:43 AM CDT): Never smoker Alcohol use: 1 glass wine/day Sexual transmitted infection testing: declines Dexa ordered Mammo ordered given history of breast cancer BP wnl PHQ Screening PHQ-2 Total Score (If total score is 3 or more points, staff should administer the PHQ-9): 0 Body mass index is 27.16 kg/m??. Discussed diet and exercise Feels safe at home Discussed skin cancer prevention and screening Reviewed labs Declines flu vaccination Will get PCV 23 today Hyperlipidemia, unspecified 06/03/2020 Assessment & Plan (02/28/2023 4:21 PM CDT): Continue 40mg atorvastatin Assessment & Plan (06/13/2022 12:34 PM CDT): Continue statin Assessment & Plan (12/13/2021 1:57 PM CDT): Reviewed lipids Continue statin Assessment & Plan (06/08/2021 2:17 PM CDT): Continue statin Assessment & Plan (06/24/2020 9:40 AM CDT): On 20mg atorvastatin Assessment & Plan (06/03/2020 6:00 AM CDT): Stable Continue 20mg atorvastatin Pre-operative clearance 06/03/2020 Assessment & Plan (07/05/2020 10:24 AM RECTIFYING ATTENDANT): Preoperative examination Procedure: cataract Date: 07/05 & 07/12 Surgeon: Dr. Nash Risk of procedure: low RCRI: Class II risk, 6 % 30d risk of , SD or cardiac arrest METs: moderate Personal or family hx of problems with anesthesia: no Medical History / Risk factors: ?? Cardiovascular disease (SD, angina, arrhythmia, HF): no ?? Lung disease (asthma, COPD): no ?? GI disease (liver, gall bladder): no ?? Uro/Renal disease (CKD, nephrolithiasis): no ?? MSK disease (neck or jaw pain/stiffness/arthritis): yes ?? Neurological disease (seizures, CVA): history of TIA ?? Endocrine disease (thyroid, DM2): yes hypothyroidism Overall assessment of risk: low. No contraindications to procedure, would be within acceptable risk. Assessment & Plan (06/03/2020 9:38 AM CDT): Preoperative examination Procedure: cataract Date: 07/05 & 07/12 Surgeon: Dr. Nash Risk of procedure: low RCRI: Class II risk, 6 % 30d risk of , SD or cardiac arrest METs: moderate Personal or family hx of problems with anesthesia: no Medical History / Risk factors: ?? Cardiovascular disease (SD, angina, arrhythmia, HF): no ?? Lung disease (asthma, COPD): no ?? GI disease (liver, gall bladder): no ?? Uro/Renal disease (CKD, nephrolithiasis): no ?? MSK disease (neck or jaw pain/stiffness/arthritis): yes ?? Neurological disease (seizures, CVA): history of TIA ?? Endocrine disease (thyroid, DM2): yes hypothyroidism Overall assessment of risk: low. No contraindications to procedure, would be within acceptable risk. Cataract of both eyes 06/03/2020 Assessment & Plan (06/24/2020 9:42 AM CDT): Has upcoming surgery Multiple falls 06/03/2020 Assessment & Plan (06/03/2020 10:27 AM CDT): Referral to physical therapy Postoperative hypothyroidism 05/03/2020 Assessment & Plan (08/24/2024 11:37 AM RECTIFYING ATTENDANT): Chronic problem. Currently taking Levothyroxine 25mcg daily after issues w/hyperthyroid & labs via PCP at [place]. Reviewed medication scheduling: aware to take 1st thing in morning, 30-60 minutes before food/drink/other medications. Will update TFTs today. Does not mychart. Verified phone #/address to contact re: results. Will set her up for Synthroid Delivers as Synthroid at local pharmacy too expensive. Assessment & Plan (12/03/2023 10:56 AM CDT): Chronic problem. Currently taking Levothyroxine 25mcg M-F & 50mcg on Sat/Sun. Will update TFTs today. Does not mychart. Verified phone #/address to contact re: results. Reviewed medication scheduling: aware to take 1st thing in morning, 30-60 minutes before food/drink/other medications. No changes at this time. Assessment & Plan (05/14/2023 11:16 AM CDT): Chronic problem. Currently taking Levothyroxine 25mcg M-F & 50mcg on Sat/Sun. Will update TFTs today. Does not mychart. Verified phone #/address to contact re: results. Reviewed medication scheduling: aware to take 1st thing in morning, 30-60 minutes before food/drink/other medications. No changes at this time. Assessment & Plan (01/16/2023 8:06 AM CDT): Goal of treatment is to keep TSH within normal range. This was explained to the patient I will update the TFTs today and will advise the patient on adjustment to her levothyroxine dose I emphasized to the patient the need to take the medication on empty stomach Assessment & Plan (06/13/2022 11:22 AM CDT): Lab Results Component Value Date TSH 0.39 09/06/2021 Continue levothyroxine Assessment & Plan (12/13/2021 1:55 PM CDT): Lab Results Component Value Date TSH 0.39 09/06/2021 Continue levothyroxine Assessment & Plan (06/08/2021 2:36 PM CDT): Following with endocrine Assessment & Plan (06/24/2020 9:43 AM CDT): Lab Results Component Value Date TSH 0.016 (L) 06/03/2020 Decreased levothyroxine to 75mcg 06/03, plan to repeat TSH in another 3w Assessment & Plan (05/03/2020 9:32 AM CDT): Continue 88mcg x a total of 6w prior to rechecking tsh Hearing loss 05/03/2020 Assessment & Plan (06/08/2021 2:17 PM CDT): Unable to afford hearing aids Assessment & Plan (06/24/2020 9:41 AM CDT): Previously referred to audiology Assessment & Plan (05/03/2020 9:38 AM CDT): Encouraged patient to follow up with audiology for testing and hearing aids, advised getting sooner rather than later is most helpful. Patient restricted by cost, not covered by insurance and expensive Overweight with body mass in dex (BMI) of 26 to 26.9 in adult 05/03/2020 Assessment & Plan (06/24/2020 9:42 AM CDT): BMI Follow-up includes: exercise counseling. Assessment & Plan (06/20/2020 6:58 AM CDT): BMI Follow-up includes: nutrition counseling. Assessment & Plan (06/03/2020 5:57 AM CDT): BMI Follow-up includes: nutrition counseling and exercise counseling. Assessment & Plan (05/03/2020 9:38 AM CDT): BMI Follow-up includes: exercise counseling. Memory impairment 08/03/2015 Assessment & Plan (06/13/2022 11:31 AM CDT): SLUMS 29 today, wnl B12 levels within normal limits Tsh at goal Continue to monitor Mixed anxiety depressive disorder 08/03/2015 Assessment & Plan (05/03/2020 9:33 AM CDT): PHQ Screening PHQ-2 Total Score (If total score is 3 or more points, staff should administer the PHQ-9): 0 PHQ-9 Total Score: 8 Denies Discussed healthy diet, regular exercise and prioritizing good sleep Decreased vibratory sense 08/03/2015 Nausea 04/21/2015 Elevated liver enzymes Resolved Problems Problem Noted Date Diagnosed Date Resolved Date Disturbance in sleep behavior 08/03/2015 06/08/2021 Assessment & Plan (06/08/2021 2:16 PM CDT): Continue ramelteon Assessment & Plan (03/08/2021 3:39 PM CDT): Advised against OTC anti-histamines Encouraged to start ramelteon (reviewed endocrine note) Assessment & Plan (05/03/2020 9:32 AM CDT): On melatonin and magnesium, declines additional medications Diverticulitis of colon 04/21/201503/2020 Encounters Date Type Department Care Team Description 08/25/2024 Orders Only [facility] Diabetes and Endocrinology [address] [place] [id number] Sri Noble NP Postoperative hypothyroidism (Primary Dx) 08/24/2024 11:46 AM RECTIFYING ATTENDANT - 08/24/2024 11:59 PM RECTIFYING ATTENDANT Hospital Encounter [address] [address] Postoperative hypothyroidism Discharge Disposition: Discharge to home or self care 08/24/2024 11:45 AM RECTIFYING ATTENDANT Lab [facility] Outpatient Lab at [address] [phone] Hyperlipidemia, unspecified (Primary Dx) 08/24/2024 11:00 AM RECTIFYING ATTENDANT Office Visit [facility] Diabetes and Endocrinology [address] [place] [phone] Sri Noble NP Postoperative hypothyroidism (Primary Dx) from Last 3 Months Immunizations Name Administration Dates Next Due Influenza, Unspecified 09/07/2022(Deferred: Julia ent Refused) Moderna SARS-CoV-2 Monovalen t Vaccination (12+ YRS) 11/20/2020,10/23/2020 Pneumococcal Conjugate PCV 13 06/08/2021 Pneumococcal Polysaccharide PPV23 06/03/2020 Surgical History Surgery Date Site/Laterality Comments THYROIDECTOMY, PARTIAL 08/26/1998 - 08/25/1999 Thyroid Surgery Substernal Thyroidectomy Partial - (Added by TW Conv) TOTAL ABDOMINAL HYSTERECTOMY W/ BILATERAL SALPINGOOPHORECTOMY 08/26/2003 - 08/25/2004 Hysterectomy, MIHAI, with BSO BREAST LUMPECTOMY 08/26/2002 - 08/25/2003 Left UPPER GASTROINTESTINAL ENDOSCOPY COLONOSCOPY BREAST BIOPSY 12/14/2022 Left BREAST BIOPSY 12/14/2022 Right KNEE ARTHROSCOPY Right meniscal tear Medical History Medical History Date Comments Hx Other Medical Hypothyroidsim, Post Surgical Hx Other Medical Diverticulitis Hx Other Medical TIA Hx Other Medical Vericose veins Fatigue Fatigue Hx Other Medical Lumpectom Disorder of thyroid Thyroid dise ase Personal history of malignan t neoplasm of breast History of malignant neoplas m of breast - S/P XRT 15 years ago (Added by TW Conv) Diverticulosis GERD (gastroesophageal reflu x disease) Gastric ulcer 01/02/2023 2 currently Hypothyroidism Motion sickness Arthritis Breast cancer (HCC) History of radiation therapy PONV (postoperative nausea a nd vomiting) Family History Medical History Relation Name Comments Coronary artery disease Father Asrah nary artery disease; Heart attack Father Myocardial Infa rction; Cause of : Myocardial Infarction Heart disease Father Family history of cardiac disorder - (Added by TW Conv) No Known Problems Maternal Grandfather Coronary artery disease Maternal Grandmother Diabetes Mother Family history of diabetes mellitus - (Added by TW Conv) Hypertension Mother Hypertension; C ause of : Hypertension/Family history of hypertension - (Added by TW Conv) Stomach cancer Mother No Known Problems Paternal Grandfather No Known Problems Paternal Grandmother Other Sister 2 Alive and well; Hypertension Sister 3 Family history of hypertension - (Added by TW Conv) Relation Name Status Comments Father (Age 76) Maternal Grandfather Maternal Grandmother Mother Alive Paternal Grandfather Paternal Grandmother Sister 1 Alive Sister 2 Sister 3 Social History Tobacco Use Types Packs/Day Years Used Date Smoking Tobacco: Never Smokeless Tobacco: Never Tobacco Cessation:Counseling Given: Not Answered Alcohol Use Standard Drinks/Week Comments Yes 7 [...] making you feel afraid or unsafe? Denies 02/22/2024 Comments No Sex and Gender Information Value Date Recorded Sex Assigned at Not on file Legal Sex Female 12:15 AM RECTIFYING ATTENDANT Gender Identity Not on file Sexual Orientation Not on file Obstetrics History Para Term AB IAB SAB Ectopic Multiple Livin g Live Births 2 2 2 Date Outcome GA Total Labor Labor/2nd/3rd Weight Sex Type Anes PTL Nelida A1 A5 Name Clin Term Term Last Filed Vital Signs Vital Sign Reading Time Taken Comments Blood Pressure 132/74 08/24/2024 11:34 AM RECTIFYING ATTENDANT Pulse 70 08/24/2024 10:59 AM RECTIFYING ATTENDANT Temperature 36.4 ??C (97.5 ??F) 02/22/2024 9:37 AM CD T Respiratory Rate 16 08/24/2024 10:59 AM RECTIFYING ATTENDANT Oxygen Saturation 97% 02/22/2024 1:17 PM CDT Inhaled Oxygen Concentration - - Weight 72.6 kg (160 lb) 08/24/2024 10:59 AM RECTIFYING ATTENDANT Height 162.6 cm (5' 4.02 ) 08/24/2024 10:[address] Body Mass Index 27.45 08/24/2024 10:59 AM RECTIFYING ATTENDANT Plan of Treatment Health Maintenance Due Date Last Done Comments DTaP/Tdap/Td Vaccine (1 - Tdap) 1955 Hepatitis B Screening 1962 Zoster Vaccine (1 of 2) 1994 Well Visit 65+ 06/13/2023 06/13/2022, 05/26, 06/08/2021, Additional history exists Fall Risk Assessment 08/29/2023 08/29/2022, 06/13/2022, 06/08/2021, Additional history exists Depression Screening 01/16/2024 01/15/2023, 11/06/2022, 06/13/2022, Additional history exists Covid-19 Vaccine (2023-2 5 season) 2024 11/20/2020, 10/23/2020 Influenza Vaccine (#1) 2024 Osteoporosis Screening-Bone Density Scan 10/25/2024 10/25/2022, 09/08/2020 Hepatitis C Screening Completed 05/10/2020 Pneumococcal vaccine 65+ Completed 06/08/2021, 04/2020 Colon Cancer Screening-CT Colonography Discontinued 10/11/2022, 09/12/2016 Colon Cancer Screening-Colonoscopy Discontinued 10/11/2022, 09/12/2016 Colon Cancer Screening-DNA Stool Discontinued 10/11/19, 09/12/2016 Colon Cancer Screening-FIT Discontinued 10/11/2022, Colon Cancer Screening-FOBT Discontinued 10/11/2022, 0 09/12/2016 Colon Cancer Screening-Sigmoidoscopy Discontinued 10/11/2022, 09/12/2016 Colorectal Cancer Screening Discontinued Medical Devices Implanted Type Area Pipe Line Maintenance Supervisor Device Identifier Shelf Expiration Date Model / Serial / Lot [employer] Partnership Marker Biospy Site Top Hat Shape Senomark [id number] - [id number] Implanted:Qty: 1 on 12/14/2022 by Denny Denney MD at [facility] Left: Breast [employer] [id number] 06/19/2023 SMARK-YOKO ERO-2S / / [id number] [employer] Marker Biospy Site Mini Cork Shape Securmark Smark-Celero - [id number] Implanted:Qty: 1 on 12/14/2022 by Denny Denney MD at [facility] H[employer] Partnership [id number] 04/03/2023 SMARK-YOKO ERO / / [id number] [employer] [place] 20ga 5cm Reposition J Curve Wire Centimeter Alex Stabilizer [id number] - [id number] Implanted:Qty: 1 on 01/07/2023 by Richar Syed MD at [facility] [employer] [id number] 10/12/2027 [id number] / / [id number] [employer] [place] 20ga 5cm Reposition J Curve Wire Centimeter Alex Stabilizer [id number] - [id number] Implanted:Qty: 1 on 01/07/2023 by Richar Syed MD at [facility] Left: Breast [employer] [id number] 10/12/2027 [id number] / / [id number] Eth[employer] End[employer] Surgery Ligaclip Extra 6.2mm Ligate Open Large Clip Internal Titanium Latex Free Lt400 - [id number] Implanted:Qty: 5 on 01/07/2023 by Denny Denney MD at [facility] Left: Breast [employer] LT400 / / Eth[employer] Ligaclip Extra 6.2mm Ligate Open Large Clip Internal Titanium Latex Free Lt400 - [id number] Implanted:Qty: 4 on 01/07/2023 by Denny Denney MD at [facility] Right: Breast [employer] LT400 / / Procedures Procedure Name Priority Date/Time Associated Diagnosis Comments TSH Routine 08/24/2024 11:46 AM RECTIFYING ATTENDANT Postoperative hypothyroidism T4, FREE Routine 08/24/2024 11:46 AM RECTIFYING ATTENDANT Postoperative hypothyroidism T4, FREE Routine 08/17/2024 12:12 PM RECTIFYING ATTENDANT Postoperative hypothyroidism TSH Routine 08/17/2024 12:12 PM RECTIFYING ATTENDANT Postoperative hypothyroidism DEXA AXIAL SKELETON BONE DENSITY 1 OR MORE SITES Schedule Routine, Read Routine (OP Routine) 10/25/2022 3:53 PM RECTIFYING ATTENDANT At high risk for fracture Post-menopausal COLONOSCOPY 10/11/2022 9:13 AM RECTIFYING ATTENDANT HEPATITIS C ANTIBODY Routine 05/10/2020 8:20 AM CDT Annual physical exam Need for hepatitis C screening test from Last 3 Months or Most Recently Relevant to Health Maintenance Results * (ABNORMAL) TSH (08/24/2024 11:46 AM RECTIFYING ATTENDANT) Thyroid Stimulating Hormone 0.09(L) 0.30 - 4.20 mcIUnit/mL Blood 08/24/2024 11:4 6 AM RECTIFYING ATTENDANT 08/24/2024 8:20 PM RECTIFYING ATTENDANT us Srihiram Noble TESTING DIRECTOR LAB BLOOD ORDERABLES Rachel l Result Performing Organization Address [facility] de Phone Number [id number] [place] [address] * T4, free (08/24/2024 11:46 AM RECTIFYING ATTENDANT) Free T4 1.41 0.90 - 1.70 ng/dL Blood 08/24/2024 11:4 6 AM RECTIFYING ATTENDANT 08/24/2024 8:20 PM RECTIFYING ATTENDANT us Sri Charley Noble TESTING DIRECTOR LAB BLOOD ORDERABLES Rachel l Result Performing Organization Address [facility] de Phone Number [address] [address] [place] [address] * (ABNORMAL) TSH (08/17/2024 12:12 PM RECTIFYING ATTENDANT) Scribed TSH 0.02(A) 0.47 - 4.68 mcU/mL EXTERNAL LAB Blood 08/17/2024 12:1 2 PM RECTIFYING ATTENDANT us Sri Noble TESTING DIRECTOR LAB BLOOD ORDERABLES Rachel l Result Performing Organization Address [facility] Co de Phone Number EXTERNAL LAB * T4, free (08/17/2024 12:12 PM RECTIFYING ATTENDANT) SCRIBED T4, Free 1.37 0.78 - 2.19 mcg/dL EXTERNAL LAB Blood 08/17/2024 12:1 2 PM RECTIFYING ATTENDANT us Sri Noble TESTING DIRECTOR LAB BLOOD ORDERABLES Rachel l Result EXTERNAL LAB * Dexa Axial Skeleton Bone Density 1 or 2 Site (10/25/2022 3:53 PM RECTIFYING ATTENDANT) Anatomical Region Laterality Modality Body N/A Mammography 10/25/2022 10:1 6 PM RECTIFYING ATTENDANT Narrative 10/25/2022 10:17 PM RECTIFYING ATTENDANT EXAM DESCRIPTION: ?? DEXA AXIAL SKELETON BONE DENSITY 1 OR MORE SITES REASON FOR STUDY: ?77 y/o ?? year old ?? F ??with given history of screening. ?? Postmenopausal Pipe Line Maintenance Supervisor/Model: ?? [employer] A (S/N [id number]) CLINICAL INFORMATION: Current height: ??64.5 ??inches ? Maximum height: ??66 ??inches ? Weight: ??163 ??pounds Risk factors: ??Postmenopausal, cancer COMPARISON: 09/08/2020. FINDINGS: AP LUMBAR SPINE L1-L4: Total BMD is ??1.105 ??g/cm2 T-score is ??0.5 This is a significant increase. ?? LEFT HIP: Total BMD is ??0.846 ??g/cm2 T-score is ??-0.8 This is not a significant change. ?? Femoral neck BMD is ??0.638 ??g/cm2 T-score is ??-1.9 ?? FRAX: 10 year risk for a major osteoporotic fracture is 14 %, 10 year risk for a hip fracture is 3.6 % IMPRESSION: ?? Based on the ??left femoral neck ??bone mineral density (T-score ?? -1.9 ) the patient has ?? low ??bone mass . ?? REFERENCE: Bone mineral density: ? Normal (T-score above or = -1.0) ? Low bone mass ??(T-score between -1.0 and -2.5) replaces the previously used term osteopenia ? Osteoporosis (T-score = or below -2.5) Medical evaluation for secondary causes of low bone mineral density may be appropriate. FRAX is a World Health Organization validated fracture risk assessment tool that calculates a person's 10 year probability of a major osteoporosis related fracture and hip fracture. ??According to the National Osteoporosis Foundation guidelines, postmenopausal women and men age 50 or older with low bone mass and a 10 year probability of a major osteoporosis related fracture = or greater than 20% or a 10 year probability of a hip fracture = or greater than 3% should be considered for treatment. For further information, including treatment recommendations, please refer to the 2013 ISCD Official Positions (http://www.iscd.org) and the NOF's Clinician's Guide to Prevention and Treatment of Osteoporosis (http://www.nof.org/professionals/clinical-guidelines) THIS IS AN ELECTRONICALLY VERIFIED FINAL REPORT 10/25/2022 10:17 PM - Electronically signed by ??Denny Estrada M.D. MF: ASAD D: ??10/25/2022 10:17 PM T: ??10/25/2022 10:17 PM Report ID: [id number] Reading Location: ??[id number] Procedure Note Denny Estrada MD - 10/25/2022 EXAM DESCRIPTION: DEXA AXIAL SKELETON BONE DENSITY 1 OR MORE SITES REASON FOR STUDY: 77 y/o year old F with given history ofscreening. Postmenopausal Pipe Line Maintenance Supervisor/Model: Spine Wave Horizon A ([id number]/N [id number]) CLINICAL INFORMATION: Current height: 64.5 inches Maximum height: 66 inches Weight: 163 pounds Risk factors: Postmenopausal, cancer COMPARISON: 09/08/2020. FINDINGS: AP LUMBAR SPINE L1-L4: Total BMD is 1.105 g/cm2 T-score is 0.5 This is a significant increase. LEFT HIP: Total BMD is 0.846 g/cm2 T-score is -0.8 This is not a significant change. Femoral neck BMD is 0.638 g/cm2 T-score is -1.9 FRAX: 10 year risk for a major osteoporotic fracture is 14 %, 10 year risk for ahip fracture is 3.6 % IMPRESSION: Based on the left femoral neck bone mineral density(T-score -1.9 ) the patient has low bone mass . REFERENCE: Bone mineral density: Normal (T-score above or = -1.0) Low bone mass (T-score between -1.0 and -2.5) replaces thepreviously used term osteopenia Osteoporosis (T-score = or below -2.5) Medical evaluation for secondary causes of low bone mineral density may be appropriate. FRAX is a World Health Organization validated fracture risk assessmenttool that calculates a person's 10 year probability of a major osteoporosisrelated fracture and hip fracture. According to the National OsteoporosisFoundation guidelines, postmenopausal women and men age 50 or older with low bonemass and a 10 year probability of a major osteoporosis related fracture = or greater than 20% or a 10 year probability of a hip fracture = or greaterthan 3% should be considered for treatment. For further information, including treatment recommendations, please referto the 2013 ISCD Official Positions (http://www.iscd.org) and the NOF's Clinician's Guide to Prevention and Treatment of Osteoporosis (http://www.nof.org/professionals/clinical-guidelines) THIS IS AN ELECTRONICALLY VERIFIED FINAL REPORT 10/25/2022 10:17 PM - Electronically signed by Denny Estrada M.D. MF: ASAD Report ID: [id number] Reading Location: [id number] us Radha Jay MD IM DXA PROCEDURE S Final Result * COLONOSCOPY (10/11/2022 9:13 AM RECTIFYING ATTENDANT) Anatomical Region Laterality Modality Other Narrative Procedure Note Jacob Deras, - 10/11/2022 9:13 AM CST [facility] Patient Name: Neli Boswell Procedure Date: 10/11/2022 9:13 AM Date of : 1945 Admit Type: Outpatient Age: 77 Gender: Female Attending MD: Jacob Deras D.O. Room: [facility] 05 Note Status: Finalized Procedure: Colonoscopy Indications: Diverticula, Follow-up of diverticula Referring MD: Radha Jay M.D. Providers: Jacob Deras D.O. Medicines: See the Anesthesia note for documentation of the administered medications Complications: No immediate complications. Estimated Blood Loss: Estimated blood loss: none. Procedure: The benefits, risks and alternatives of theprocedure and sedation were discussed and informed consentwas obtained. All questions were answered. Please referto the signed informed consent document in the medical record. The scope was passed under direct vision.The CF-[id number] colonoscope was introduced through theanus and advanced to the cecum, identified byappendiceal orifice and ileocecal valve. The colonoscopy was performed without difficulty. The patient tolerated the procedure well. The quality of the bowel preparation was good. Prep was administered in asplit dose. Findings: The entire examined colon appeared normal on direct and retroflexion views. Many small-mouthed diverticula were found in the entire colon. Therewas no evidence of diverticular bleeding. Impression: - The entire examined colon is normal on direct and retroflexion views. - No specimens collected. Recommendation: - Patient has a contact number available for emergencies. The signs and symptoms of potential delayed complications were discussed with thepatient. Return to normal activities tomorrow. Written discharge instructions were provided to thepatient. - Resume previous diet. - Continue present medications. - [facility] Jacob Deras D.O. 10/11/2022 10:03:19 AM Number of Addenda: 0 Note Initiated On: 10/11/2022 9:13 AM Recognized by the [place] [employer] for promoting quality in endoscopy Jacob Deras DO ENDOSCOPY PROCEDURES Fin al Result * Hepatitis C antibody (05/10/2020 8:20 AM CDT) Hep C Ab NONREACT NONREACTIVE [facility] Comment: Siemens CentaurXP using BRIJESH (chemiluminescent immunoassay) technology. NONREACTIVE: Antibodies to Hepatitis C not detected. This does not exclude early acute Hepatitis C infection, possibility of exposure to Hepatitis C, antibodies below detection limit, or to lack of antibody reactivity to the antigen used in this assay. EQUIVOCAL: Antibodies to Hepatitis C may or may not be present. ??Sample to be confirmed by real-time PCR method. REACTIVE: Antibodies to Hepatitis C detected.Sample to be confirmed by real-time PCR method. Blood specimen (specimen) 05/10/2020 8:20 AM CDT 05/10/2020 8:58 AM CDT Narrative Resulting Agency Comment CLI Radha Jay MD LAB MICROBIOLOGY - GENERAL ORDERABLES Final Result [facility] [address] [place] [address], [facility] [phone] from Last 3 Months or Most Recently Relevant to Health Maintenance Insurance MEDICARE SOLUTIONS [facility] Address: [address] [place] [phone] [facility] Address: [id number] [place] [address] MEDICARE [employer] [facility] Address: [address] [address] [place] [address] Advance Directives For more information, please contact: [phone] * Full Code (Latest Code Status on File) Date Activated Date Inactivated Comments 01/07/2023 1:47 PM 01/07/2023 9:15 PM * Full Code Date Activated Date Inactivated Comments 08/28/2022 6:07 PM 08/29/2022 6:09 PM Care Teams Panelboard Operator Relationship Specialty Start Date End Date Aarti Starks MD [address] [place] [address] PCP - General Family Medicine 08/24/24 Pavel Ferrera DO [address] [place] [address] MEDICAL ONCOLOGY, [facility] [address] [place], [place] [address] Medical Oncologist/Hematologis t Hematology and Oncology 12/26/22 Denny Denney MD [address] [place] [address] [address] [place], [place] [id number] Surgeon General Surgery 12/26/22 Gail Brice MD [address] [place] [address] [address] [place], [place] [id number] Radiation Oncologist Radiation Oncology 10/24/23
--- OUTSIDE RECORDS SUMMARY | 2024-09-21 13:44 | XMS_ITS ---
Author Organization [facility] Building Address [address] [place] [address] Care Team Providers Care Errand Runner Name Role Phone Pavel Ferrera DO Unavailable [phone] Denny Denney MD Unavailable [phone] Gail Brice MD Unavailable [phone] Aarti Starks MD Primary Care Provider [phone] Active Problems Problem Noted Date Diagnosed Date Personal history of radiation therapy 04/25/2023 Mckeon's esophagus without dysplasia 02/28/2023 Assessment & Plan (02/28/2023 4:20 PM CDT): Continue omeprazole, given asymptomatic will decrease to 20mg Ductal carcinoma in situ (DCIS) of left breast 0 12/26/2022 Cancer Staging:Clinical stage from 01/02/2023:Stage 0(cTis (DCIS), cN0, cM0, ER: Not Assessed, NC: Not Assessed, HER2: Not Assessed) - Signed by Gail Brice MD on 01/02/2023 Malignant neoplasm of upper- outer quadrant of right breast in female, estrogen receptor positive 12/14/2022 Cancer Staging:Clinical stage from 01/02/2023:Stage IA(cT1b, cN0, cM0, G1, ER+, NC+, HER2-) - Signed by Gail Brice MD on 01/02/2023 Pathologic stage from 02/13/2023:Stage Unknown(pT1b, pNX, G1, ER+, NC+, HER2-) - Signed by Gail Brice MD [...] 06/03/2020 Assessment & Plan (07/05/2020 10:24 AM COMMUNITY DEVELOPMENT COORDINATOR): Preoperative examination Procedure: cataract Date: 07/05 & 07/12 Surgeon: Dr. Nash Risk of procedure: low RCRI: Class II risk, 6 % 30d risk of , MS or cardiac arrest METs: moderate Personal or family hx of problems with anesthesia: no Medical History / Risk factors: ?? Cardiovascular disease (MS, angina, arrhythmia, HF): no ?? Lung disease [...] risk, 6 % 30d risk of , MS or cardiac arrest METs: moderate Personal or family hx of problems with anesthesia: no Medical History / Risk factors: ?? Cardiovascular disease (MS, angina, arrhythmia, HF): no ?? Lung disease [...] 05/03/2020 Assessment & Plan (08/24/2024 11:37 AM COMMUNITY DEVELOPMENT COORDINATOR): Chronic problem. Currently taking Levothyroxine 25mcg daily after issues w/hyperthyroid & labs via PCP at [place]. Reviewed medication scheduling: aware to take 1st [...] sense 08/03/2015 Nausea 04/21/2015 Elevated liver enzymes Current Oncology Plans No current plan information found. Past Plans No past plan information found. Radiation Treatments * Plan Last Treated On Elapsed Days Fractions Treated Prescribed Fraction Dose Prescribed Total Dose RT BREAST BST 03/21/2023 28 5 250 cGy 1,250 cGy RIGHT BREAST 03/14/2023 21 15 267 cGy 4,005 c Gy Reference Point Last Treated On Elapsed Days Session Dose Total Dose RT BRS BOOST 03/21/2023 28 250 cGy 1,250 cGy RIGHT BREAST 03/14/2023 21 267 cGy 4,005 cGy Treatment Summaries Malignant neoplasm of upper-outer quadrant of right breast in female, estrogen receptor positive (HCC)* Images from the original note were not included. [address] [address] This Survivorship Care Plan is a cancer treatment summary and follow-up plan and is provided to youto keep with your health care records and to share with your primary care provider or any of your doctors and nurses. This summary is a brief record of major aspects of your cancer treatment not a detailed or comprehensive record of your care. You should review this with your cancer provider. Treatment Summary and Survivorship Care Plan for Breast Cancer General Information Patient name Neli Boswell (home) Date of 1945 Health Care Providers (Including Names, Institutions) Provider Name: Contact Information: Primary Care Physician Radha Jay MD [phone] Surgeon Denny Denney MD [phone] Radiation Oncologist Gail Brice MD [phone] Medical Oncologist Pavel Ferrera DO [phone] Treatment Summary Cancer Diagnosis Information Diagnosis Malignant neoplasm of upper-outer quadrant of right breast in female, estrogen receptor positive (HCC) Diagnosis date 12/14/2022 Staging information Cancer Staging Ductal carcinoma in situ (DCIS) of left breast Staging form: Breast, AJCC 8th Edition - Clinical stage from 01/02/2023: Stage 0 (cTis (DCIS), cN0, cM0, ER: Not Assessed, NC: Not Assessed, HER2: Not Assessed) - Signed by Gail Brice MD on 01/02/2023 Malignant neoplasm of upper-outer quadrant of right breast in female, estrogen receptor positive (HCC) Staging form: Breast, AJCC 8th Edition - Clinical stage from 01/02/2023: Stage IA (cT1b, cN0, cM0, G1, ER+, NC+, HER2-) - Signed by Gail Brice MD on 01/02/2023 - Pathologic stage from 02/13/2023: Stage Unknown (pT1b, pNX, G1, ER+, NC+, HER2- ) - Signed by Gail Brice MD on 02/13/2023 Estrogen: Not assessed Estrogen: Positive Estrogen: Positive Progesterone: Not assessed Progesterone: Positive Progesterone: Positive HER2: Not assessed HER2: Negative HER2: Negative Treatment Completed Surgery Surgery date 12/14/2022 Surgical procedure Right & Left breast biopsies Surgery date 01/07/2023 Surgical procedure Bilateral Lumpectomies Radiation Radiation Treatments Active Plans RIGHT BREAST Most recent treatment: Dose planned: 267 cGy (fraction 15 on 03/14/2023) Total: Dose planned: 4,005 cGy Elapsed Days: 21 RT BREAST BST Most recent treatment: Dose planned: 250 cGy (fraction 5 on 03/21/2023) Total: Dose planned: 1,250 cGy Elapsed Days: 28 Reference Points RIGHT BREAST Most recent treatment: Dose given: 267 cGy (on 03/14/2023) Total: Dose given: 4,005 cGy Elapsed Days: 21 RT BRS BOOST Most recent treatment: Dose given: 250 cGy (on 03/21/2023) Total: Dose given: 1,250 cGy Elapsed Days: 28 Historical No historical radiation treatments to show. Systemic Therapy (chemotherapy, hormonal therapy, other) [No matching plan found] Lifetime Dose Tracking Lifetime Dose Tracking No doses have been documented on this patient for the following tracked chemicals: doxorubicin, epirubicin, idarubicin, daunorubicin, mitoxantrone, bleomycin, mitomycin, cyclophosphamide, carmustine,cisplatin, ifosfamide, carboplatin, fluorouracil, etoposide, doxorubicin HCl pegylated liposomal, et oposide phosphate, valrubicin, doxorubicin isotoxic equivalent Research Studies Persistent symptoms or side effects that have continued after finishing treatment: fatigue, numbness, pain Family History Cancer Cancer-related family history includes Cancer in her mother; Stomach cancer in her mother. Genetic Testing No Tell your provider if there is a history of cancer in your family, if another member of your familywas diagnosed with cancer since your last visit. The following risk factors may indicate that breast cancer could run in the family: Jain heritage History of ovarian cancer in the patient or any 1st or 2nd degree relative Any 1st degree relative with breast cancer before the age of 50 Two or more 1st or 2nd degree relative diagnosed with breast cancer at any age Patient or relative diagnosed with bilateral breast cancer History of breast cancer in a male relative Treatment Ongoing Additional Treatment Start Date Planned Duration Possible Side Effects Tamoxifen Hot flashes and vaginal discharge (common); endometrial cancer, serious blood clots and eye problems (all very rare). Other rare side effects may occur. Aromatase Inhibitors (anastrozole, exemestane and letrozole) Hot flashes, joint/muscle aches, vaginal dryness and bone loss (common); hair thinning (rare) Other rare side effects may occur. Calcium + Vitamin D 19-50 years age and males age 51-70 years: recommend 1,000 mg/day calcium & 600 IU/day vitamin D Females age 51-70 1200 mg/day calcium and 600 IU/day vitamin D Over 70 years age take 1200 mg/day calcium and 800 IU/day of vitamin D 2000 international units Daily An irregular heartbeat; nausea, constipation; weakness, drowsiness, headache; dry mouth, or a metallic taste in your mouth; or muscle or bone pain. Follow-up Care Plan Your follow-up care plan is design to inform you and primary care providers regarding the recommended and required follow-up, cancer screening and routine health maintenance that is needed to maintain optimal health. Coordinating Provider When/How often Pavel Ferrera DO Every 3-6 months for year 1 to 3 Pavel Ferrera DO Every 6-12 months for year 4 to 5 aGil Brice MD Indicated by provider No care produce production team member to display Yearly Radha Jay After 5 years, annual follow up Cancer Surveillance or other Recommended Tests Coordinating Provider Test How Often Pavel Ferrera DO - Year 1-5, Radha Jay MD - After year 5 Mammogram for remaining breast(s) Yearly PULP REFINER OPERATOR: Pap/pelvic exam (woman only) As indicated by provider Medical Oncologist: Pavel Ferrera DO, PCP: Radha Jay Bone Density Every 2 years if on an aromatase inhibitor or as indicated by your provider CT/PET and tumor markers. Not recommended in the absence of signs or symptoms of cancer recurrence Possible late- and long-term effects that someone with this type of cancer and treatment may experience: Fatigue Many patients experience some level of fatigue. Some patients experience severe and ongoing fatigue. An active lifestyle with healthy sleep patterns can improve your energy levels. Talk to your provider about ongoing (more than 3 months) fatigue. Osteoporosis Patients on hormone therapies and who experience early menopause are at a higher risk of developingfractures, osteopenia (lower than normal bone density) and osteoporosis (loss of bone density). Weight bearing exercise, adequate intake calcium and vitamin D are helpful. Bone density scans are usedto evaluate bone health. Movement or strength changes Some patients experience loss of strength or difficulty with mobility or range of motion after surgery or their cancer treatments. Talk with your provider if you can no longer move the way you did before your cancer treatment or if you feel weak or unsteady or you have fallen. Physical therapy or rehabilitation may be helpful. Weight management and Nutrition Some patients find it difficult to maintain good nutrition during or after treatment. This can leadto weight loss or weight gain. Aim for a normal body mass index (BMI) of 18.5-24.9, talk to your provider about your BMI. Being overweight may increase your risk of cancer recurrence and other diseases. Eat a healthy diet, focus on lean meats and proteins, more fruits, vegetables and whole grains and low in sugars and fats. Limit red meat and avoid processed meat. Work to maintain healthy weight behaviors that include diet and physical activity. Menopause or Sexual changes or symptoms of estrogen deprivation (hot flashes, sweats, vaginal discharge or dryness, painful intercourse). The desire to engage in sexual activity may lessen due to low energy, decreased sexual function and/or changes in appearance. Symptoms of menopause may cause vaginal changes and/or dryness. Your riskdepends on your age and the kind of treatment you received. Cancer diagnosis and treatment may cause existing sexual problems to be worse. Evaluation of sexual function and professional counseling may be helpful. The use of gmue-rlj-xelgcut lubricants may lessen painful intercourse. Talk with your provider about sexual changes and symptoms of menopause. Promising non-hormone treatments that may include antidepressants (drugs that treat depression), dietary changes, acupuncture and exercise may h elp lessen symptoms. Psychosocial Distress (Emotional stress, worry or depression). Many patients experience distress, anxiety or depression at some point. This can include worry, difficulty sleeping or sadness and often lessens over time. Discuss this with your provider; a referralto a therapist may be helpful. Physical activity has been shown to relieve stress. Some patients may benefit from the use of medication. It is important to remember that these symptoms can be due to other causes like diabetes or with normal aging. If these or any other new symptoms occur bring these to attention of your health care provider. These symptoms should be brought to the attention of your provider: Anything that represents a brand new symptom; Anything that represents a persistent symptom; Anything you are worried about that might be related to the cancer coming back. Please continue to see your primary care provider for all general health care recommended for a patient your age such as routine immunizations, and routine non-breast cancer screening like colonoscopy or bone density exams. Consult with your health care provider about prevention and screening for bone loss using bone density tests. Cancer survivors may experience issues with the areas listed below. If you have any concerns in these or other areas, please speak with your doctors or nurses to find out how you can get help with them. Anxiety and depression Emotional and mental health Fatigue Fertility Financial advice or assistance Insurance Memory or concentration loss Parenting Physical functioning School/work Sexual functioning Stopping smoking Weight changes Other A number of lifestyle/behaviors can affect your ongoing health, including the risk for the cancer coming back or developing another cancer. Discuss these recommendations with your doctor or nurse: Eat a healthy diet: focus on lean meats and proteins, more fruits, vegetables and whole grains and low in sugars and fats. Limit red meat and avoid processed meat. Maintain a healthy weight; avoid being overweight. Aim for a normal body mass index (BMI) of 18.5-24.9. Help learning to eat healthier, call the remotely operated vehicle at: [facility] Have an active lifestyle, strive for 30 minutes of moderate exercise 5 times a week and strength orresistance training at least twice a week. Use broad-spectrum (UVA+UVB) sunscreen with SPF 30 or greater, is water resistant, limit time spentin the sun (10 am-4 pm), wear hat, wear UV protective clothing, wear sunglasses. Never use a tanning bed. Skin that was irradiated may be more sensitive over your lifetime. Do not smoke or chew tobacco; participate in a smoking cessation program. Limit alcohol intake, 1 drink per day for a woman and 2 drinks per day for a man. Resources you may be interested in: [facility] A National Cancer [place] [facility] http://www.[facility]/ [facility] & Cancer Information Center 1st floor of [place] [facility] [phone]. Computer access, educational material, counseling services (FREE) Cancer Resources: www.cancer.net [place] Disabilities Act: The U.S. Department of Justice provides information about the Americans with Disabilities Act (ADA). Toll free number http://www.ada.gov/ Occupational Therapy at [facility]. Improve memory and thinking following chemotherapy. Improve your performance at home, work and in the community. or Toll free www.ot.[facility]/patients Managing your weight after a cancer diagnosis: http://www.cancer.net/sites/cancer.net/files/weight_after_cancer_diagnosis.pdf National Coalition for Cancer Survivorship: http://www.canceradvocacy.org/ [place] Cancer Society Cancer Survivors Network: http://csn.cancer.org/ [employer] Cancer: https://survivorship.cancer.gov/ an online tool for cancer survivors andcaregivers created by the [place] Cancer Society and the National Cancer [place]. It provides: Information on dealing with side effects from cancer and treatment Caregivers with support and resources Practical advice about talking to friends and family about cancer Questions to ask their health care team Help understanding their rights in the workplace Resolved Problems Problem Noted Date Diagnosed Date [...]
--- OUTSIDE RECORDS SUMMARY | 2024-09-21 13:44 | XMS_ITS | Referral Summary ---
Author Organization [facility] Address [address] [place] [address] Care Team Providers Care Hr Payroll Coordinator Name Role Phone Radha Jay MD Primary Care Pro vider Stiven Brody MD Unavailable [phone] Source Comments [facility],non-owned Affiliates and Associated Physician Practices is amultiple site organization consisting of ambulatory clinics and hospital sitesin [place], [place], [place] and [place]. This disclosure is being madepursuant to the Care Everywhere program and may not contain all information available regarding this patient. Last updated 18.[facility] Encounters Date Type Department Care Team Description 09/21/2024 11:45 AM TIRE MAKER Office Visit [facility] [address] [place] [phone] Jarocho Washington, CARPENTERS-AUTOMOTIVE ENGINEERING TECHNICIAN Aftercare following left knee joint replacement surgery (Primary Dx) 08/17/2024 3:40 PM TIRE MAKER Ancillary Procedure [facility] Orthopedics - Radiology [address] [place] [phone] Stiven Brody MD Status post total left knee replacement 08/17/2024 3:30 PM TIRE MAKER Office Visit [facility] [address] [place] [phone] Stiven Brody MD Status post total left knee replacement (Primary Dx) 08/05/2024 Telephone [facility] [address] [place] [address], [address] [phone] Stiven Brody MD Physical Therapy 07/27/2024 2:30 PM TIRE MAKER Office Visit [address] [phone] Stiven Brody MD Status post total left knee replacement (Primary Dx) 06/29/2024 2:30 PM TIRE MAKER Office Visit [address] [phone] Stiven Brody MD Aftercare following left knee joint replacement surgery (Primary Dx) from Last 3 Months Allergies Active Allergy Reactions Criticality Noted Date Comments Milk Protein Extract Nausea and/or Vomiting Medications * Be aware that medications may not be up to date on this document. Alwaysverify current medications with the patient. Medication Sig Dispensed Refills Start Date End Date Status levothyroxine (Synthroid) 25 MCG tablet Take 1 (one) tablet by mouth daily before breakfast 05/15/2023 Active atorvastatin (Lipitor) 40 MG tablet Take 1 (one) tablet by mouth once daily 12/13/2022 Active magnesium 30 MG tablet Take 1 (one) tablet by mouth once daily Active vitamin C (Ascorbic Acid) 1000 MG tablet Take 1 (one) tablet by mouth once daily Active vitamin E (Tocopheryl) 100 UNIT capsule Take 1 (one) capsule by mouth once daily Active vitamin D3 (Cholecalciferol) 25 MCG (1000 UNITS) tablet Take 2 (two) tablets by mouth once daily Active melatonin 3 MG tablet Take 1 (one) tablet by mouth at bedtime Active acetaminophen (Tylenol) 500 MG capsule Take 2 (two) capsules by mouth 3 times daily Take 3x/day for 10 days, then as needed for pain 04/16/2024 Active aspirin EC (Ecotrin) 81 MG tablet TAKE 1 (ONE) TABLET BY MOUTH 2 TIMES DAILY FOR 42 DAYS TAKE FOR BLOOD CLOT PREVENTION 84 tablet 04/16/2024 04/16/2025 Active omeprazole (PriLOSEC) 20 MG capsule TAKE 1 (ONE) CAPSULE BY MOUTH ONCE DAILY FOR 42 DAYS 42 capsule 04/17/2024 04/17/2025 Active methylPREDNISolon e (Medrol Dosepak) 4 MG tabletIndications :Inflammation Take According to Package Instructions Reasons: Inflammation 21 tablet 07/27/2024 Active meloxicam (Mobic) 15 MG tablet Take 1 (one) tablet by mouth once daily 30 tablet 5 08/17/2024 Active methylPREDNISolon e (Medrol Dosepak) 4 MG tablet Take by mouth as directed Take as directed by mouth per package instructions. 21 tablet 09/21/2024 Active Active Problems Problem Noted Date Diagnosed Date Arthritis of knee 04/16/2024 Social History Tobacco Use Types Packs/Day Years Used Date Smoking Tobacco: Never Smokeless Tobacco: Never Tobacco Cessation:Counseling Given: Not Answered Alcohol Use Standard Drinks/Week Comments Yes 0 [...] Recorded Patient Health Questionnaire-2 Score 2 09/21/2024 [facility] - Occupational Stress Questionnaire Answer Date Recorded [...] place to sleep or slept in a skilled nursing (including now)? No 04/16/2024 Sex and Gender Information Value Date Recorded Sex Assigned at Not on file Gender Identity Not on file Sexual Orientation Not on file Last Filed Vital Signs Vital Sign Reading Time Taken Comments Blood Pressure 146/69 04/17/2024 11:36 AM CDT Pulse 73 04/17/2024 11:36 AM CDT Temperature 36.6 ??C (97.9 ??F) 04/17/2024 11:36 AM C DT Respiratory Rate 18 04/17/2024 11:36 AM CDT Oxygen Saturation 100% 04/17/2024 11:36 AM CDT Inhaled Oxygen Concentration - - Weight 74.6 kg (164 lb 6.4 oz) 04/16/2024 8:26 A M CDT Height 167.6 cm (5' 6 ) 04/16/2024 8:26 AM CDT Body Mass Index 26.53 04/16/2024 8:26 AM CDT Plan of Treatment Upcoming Encounters Date Type Department Care Team (Late st Contact Info) Description 11/03/2024 1:20 PM CDT Office Visit [facility] Orthoped[facility] [address] [place] [phone] Stiven Brody MD [address] [place] [id number] Medical Devices Implanted Type Area Special Equipment Technician Device Identifier Shelf Expiration Date Model / Serial / Lot Cmnt Bone Plc R 40gm Grn Implanted:Qty: 1 on 04/16/2024 by Stiven Brody MD at [facility] Left: Knee [employer] 06/25/2026 [id number] / / [id number] Cmpnt Ptlr Std 28mm 3 Pg Kn Ser A Implanted:Qty: 1 on 04/16/2024 by Stiven Brody MD at [facility] Left: Knee [employer] 02/04/2029 [id number] / / [id number] Cmpnt Fem Kn Lt Cr Cmnt Prm Vngrd Intlk Implanted:Qty: 1 on 04/16/2024 by Stiven Brody MD at [facility] Left: Knee [employer] 01/09/2034 [id number] / / [id number] Tray Tib 67mm Kn Cocr I Beam Implanted:Qty: 1 on 04/16/2024 by Stiven Brody MD at [facility] Left: Knee [employer] 10/27/2032 [id number] / / [id number] Brng [id number] Vngrd E1 Kn Ant Stab Tib Implanted:Qty: 1 on 04/16/2024 by Stiven Brody MD at [facility] Left: Knee [employer] 08/01/2028 [id number] / / [id number] Procedures Procedure Name Priority Date/Time Associated Diagnosis Comments XR KNEE LEFT 3VW Routine 08/17/2024 3:36 PM TIRE MAKER Status post total left knee replacement from Last 3 Months Results * XR Knee Left 3Vw (08/17/2024 3:36 PM TIRE MAKER) Narrative [facility] [address] - 08/17/2024 3:36 PM TIRE MAKER Please see progress note in Epic for results. Stiven Brody MD DIAGNOSTIC IMAGING O RDERABLES [facility] [address] from Last 3 Months Advance Directives * Full Code (Latest Code Status on File) Date Activated Date Inactivated Comments 04/16/2024 2:17 PM 04/17/2024 2:29 PM Care Teams Hr Payroll Coordinator Relationship Specialty Start Date End Date Radha Jay MD [id number] [address] PCP - General Family Medicine 11/12/23 [place] [address] [address] Surgeon Orthopedic Surgery 11/12/23
--- OUTSIDE RECORDS SUMMARY | 2024-09-21 13:44 | XMS_ITS | Clinical Summary ---
Author Organization [facility] Address [address] [place] [address] Care Team Providers Care Medical Assistant Prn Name Role Phone Radha Jay MD Primary Care Pro vider Stiven Brody MD Unavailable [phone] Source Comments [facility],non-owned Affiliates and Associated Physician Practices is amultiple site organization consisting of ambulatory clinics and hospital sitesin [place], [place], [place] and [place]. This disclosure is being madepursuant to the Care Everywhere program and may not contain all information available regarding this patient. Last updated 18.[facility] Allergies Active Allergy Reactions Criticality Noted Date [...] Date Diagnosed Date Arthritis of knee 04/16/2024 Encounters Date Type Department Care Team Description 09/21/2024 11:45 AM ASSOCIATE PROFESSOR OF SOCIOLOGY Office Visit [facility] [address] [place] [phone] Jarocho Washington, HOOKING MACHINE OPERATOR-[facility] Aftercare following left knee joint replacement surgery (Primary Dx) 08/17/2024 3:40 PM ASSOCIATE PROFESSOR OF SOCIOLOGY Ancillary Procedure [facility] Orthopedics - Radiology [address] [place] [phone] Stiven Brody MD Status post total left knee replacement 08/17/2024 3:30 PM ASSOCIATE PROFESSOR OF SOCIOLOGY Office Visit [facility] [address] [place] [phone] Stiven Brody MD Status post total left knee replacement (Primary Dx) 08/05/2024 Telephone [facility] [address] [place] [phone] Stiven Brody MD Physical Therapy 07/27/2024 2:30 PM ASSOCIATE PROFESSOR OF SOCIOLOGY Office Visit [facility] [address] [place] [phone] Stiven Brody MD Status post total left knee replacement (Primary Dx) 06/29/2024 2:30 PM ASSOCIATE PROFESSOR OF SOCIOLOGY Office Visit [facility] [address] [place] [address], [address] [place] [phone] Stiven Brody MD Aftercare following left knee joint replacement surgery (Primary Dx) from Last 3 Months Social History Tobacco Use Types Packs/Day Years [...] Recorded Patient Health Questionnaire-2 Score 2 09/21/2024 [facility] - Occupational Stress Questionnaire Answer Date Recorded [...] place to sleep or slept in a penitentiary (including now)? No 04/16/2024 Sex and Gender [...] Description 11/03/2024 1:20 PM CDT Office Visit [facility] [address] [phone] [place] [id number] [address] Health Maintenance Due Date Last Done Comments DTAP/TDAP/TD VACCINES (1 - Tdap) 1963 PNEUMOCOCCAL VACCINE 50+ (1 of 1 - PCV) 1994 ZOSTER VACCINE (1 of 2) 1994 Respiratory Syncytial Virus (RSV) Vaccine Pt: or over 60 yrs (1 - 1-dose 75+ series) 2019 COVID-19 VACCINE (3 - 2023-2 5 season) 2024 11/20/2020, 10/23/2020 INFLUENZA VACCINE (#1) 2024 MEDICARE AWV ? CALENDAR YEAR 2024 BONE DENSITY TESTING Completed 10/25/2022, 09/08/2020 DEPRESSION SCREENING Completed 09/21/2024, 11/11/2023 HEPATITIS B VACCINE Aged Out No longe r eligible based on patient's age to complete this topic HIB VACCINE Aged Out No longer eligi ble based on patient's age to complete this topic HPV VACCINE Aged Out No longer eligi ble based on patient's age to complete this topic MENINGOCOCCAL (Group B) VACCINE Aged Out No longer eligible b ased on patient's age to complete this topic MENINGOCOCCAL VACCINE Aged Out No whitney kiel eligible based on patient's age to complete this topic Medical Devices Implanted Type Area Applications Support Analyst Device Identifier Shelf Expiration Date Model / Serial / Lot Cmnt Bone Plc R 40gm Grn Implanted:Qty: 1 on 04/16/2024 by Stiven Brody MD at [facility] Left: Knee [employer] 06/25/2026 [id number] / / [id number] Cmpnt Ptlr Std 28mm 3 Pg Kn Ser A Implanted:Qty: 1 on 04/16/2024 by Stiven Brody MD at [facility] Left: Knee [employer] 02/04/2029 [id number] / / [id number] Cmpnt Fem Kn Lt Cr Cmnt Prm Vngrd Intlk Implanted:Qty: 1 on 04/16/2024 by Stiven Brody MD at [facility] Left: Knee [employer] 01/09/2034 [id number] / / [id number] Tray Tib 67mm Kn Cocr I Beam Implanted:Qty: 1 on 04/16/2024 by Stiven Brody MD at [facility] Left: Knee [employer] 10/27/2032 [id number] / / [id number] Brng [id number] Vngrd E1 Kn Ant Stab Tib Implanted:Qty: 1 on 04/16/2024 by Stiven Brody MD at [facility] Left: Knee [employer] 08/01/2028 [id number] / / [id number] Procedures Procedure Name Priority Date/Time Associated Diagnosis Comments XR KNEE LEFT 3VW Routine 08/17/2024 3:36 PM ASSOCIATE PROFESSOR OF SOCIOLOGY Status post total left knee replacement from Last 3 Months Results * XR Knee Left 3Vw (08/17/2024 3:36 PM ASSOCIATE PROFESSOR OF SOCIOLOGY) Narrative [facility] [address] - 08/17/2024 3:36 PM ASSOCIATE PROFESSOR OF SOCIOLOGY Please see progress note in Epic for results. Stiven Brody MD DIAGNOSTIC IMAGING O RDERABLES [facility] [place] [address] from Last 3 Months Advance Directives * Full Code (Latest Code Status on File) Date Activated Date Inactivated Comments 04/16/2024 2:17 PM 04/17/2024 2:29 PM Care Teams Medical Assistant Prn Relationship Specialty Start Date End Date Radha Jay MD [address] [place] [id number] PCP - General Family Medicine 11/12/23 [place] [address] [place] [address] Surgeon Orthopedic Surgery 11/12/23
--- OUTSIDE RECORDS SUMMARY | 2024-09-21 13:44 | XMS_ITS | Patient Health Summary ---
Author Organization [facility] Address [address] [place] [address] Care Team Providers Care Meteorology Teacher Name Role Phone Radha Jay MD Primary Care Pro vider Stiven Brody MD Unavailable [phone] [facility],non-owned Affiliates and Associated Physician Practices is amultiple site organization consisting of ambulatory clinics and hospital sitesin [place], [place], [place] and [place]. This disclosure is being madepursuant to the Care Everywhere program and may not contain all information available regarding this patient. Last updated 18.[facility] Allergies * Milk Protein Extract(Nausea and/or Vomiting) Medications * Be aware that medications may not be up to date on this document. Alwaysverify current medications with the patient. * levothyroxine (Synthroid) 25 MCG tablet(Started 05/15/2023) Take 1 (one) tablet by mouth daily before breakfast * atorvastatin (Lipitor) 40 MG tablet(Started 12/13/2022) Take 1 (one) tablet by mouth once daily * magnesium 30 MG tablet Take 1 (one) tablet by mouth once daily * vitamin C (Ascorbic Acid) 1000 MG tablet Take 1 (one) tablet by mouth once daily * vitamin E (Tocopheryl) 100 UNIT capsule Take 1 (one) capsule by mouth once daily * vitamin D3 (Cholecalciferol) 25 MCG (1000 UNITS) tablet Take 2 (two) tablets by mouth once daily * melatonin 3 MG tablet Take 1 (one) tablet by mouth at bedtime * acetaminophen (Tylenol) 500 MG capsule(Started 04/16/2024) Take 2 (two) capsules by mouth 3 times daily Take 3x/day for 10 days, then as needed for pain * aspirin EC (Ecotrin) 81 MG tablet(Started 04/16/2024) TAKE 1 (ONE) TABLET BY MOUTH 2 TIMES DAILY FOR 42 DAYS TAKE FOR BLOOD CLOT PREVENTION * omeprazole (PriLOSEC) 20 MG capsule(Started 04/17/2024) TAKE 1 (ONE) CAPSULE BY MOUTH ONCE DAILY FOR 42 DAYS * methylPREDNISolone (Medrol Dosepak) 4 MG tablet(Started 07/27/2024) Take According to Package Instructions Reasons: Inflammation * meloxicam (Mobic) 15 MG tablet(Started 08/17/2024) Take 1 (one) tablet by mouth once daily 5 refills by 08/17/2025 * methylPREDNISolone (Medrol Dosepak) 4 MG tablet(Started 09/21/2024) Take by mouth as directed Take as directed by mouth per package instructions. Active Problems Problem Noted Date Diagnosed Date [...] Recorded Patient Health Questionnaire-2 Score 2 09/21/2024 [facility] Occup[facility] ional Health - Occupational Stress [...] place to sleep or slept in a assisted (including now)? No 04/16/2024 Sex and Gender [...] Mass Index 26.53 04/16/2024 8:26 AM CDT Medical Devices Implanted Type Area Long Term Care Social Worker Device Identifier Shelf Expiration Date Model / Serial / Lot Cmnt Bone Plc R 40gm Grn Implanted:Qty: 1 on 04/16/2024 by Stiven Brody MD at [facility] Left: Knee [employer] 06/25/2026 [id number] / / [id number] Cmpnt Ptlr Std 28mm 3 Pg Kn Ser A Implanted:Qty: 1 on 04/16/2024 by Stiven Brody MD at [facility] Left: Knee [employer] 02/04/2029 [id number] / / [id number] Cmpnt Fem Kn Lt Cr Cmnt Prm Vngrd Intlk Implanted:Qty: 1 on 04/16/2024 by Stiven Brody MD at [facility] Left: Knee [employer] 01/09/2034 [id number] / / [id number] Tray Tib 67mm Kn Cocr I Beam Implanted:Qty: 1 on 04/16/2024 by Stiven Brody MD at [facility] Left: Knee [employer] 10/27/2032 [id number] / / [id number] Brng 12abl42xc Vngrd E1 Kn Ant Stab Tib Implanted:Qty: 1 on 04/16/2024 by Stiven Brody MD at [facility] Left: Knee [employer] 08/01/2028 [id number] / / [id number] Procedures * XR KNEE LEFT 3VW(Performed 08/17/2024) Performed for Status post total left knee replacement * XR KNEE LEFT 3VW(Performed 06/04/2024) Performed for Aftercare following left knee joint replacement surgery * ENDOTRACHEAL TUBE NOTE(Performed 04/16/2024) * NEURAXIAL BLOCK(Performed 04/16/2024) * AK TOTAL KNEE REPLACEMENT(Performed 04/16/2024) * CBC W AUTO DIFFERENTIAL(Performed 04/16/2024) Performed for Preop testing * EKG 12-LEAD(Performed 12/23/2023) Performed for Pre-op evaluation * CBC W AUTO DIFFERENTIAL(Performed 12/23/2023) Performed for Pre-op evaluation * COMPREHENSIVE METABOLIC PANEL(Performed 12/23/2023) Performed for Pre-op evaluation * XR KNEE LEFT 3VW(Performed 11/11/2023) Performed for Left knee pain, unspecified chronicity Results * XR Knee Left 3Vw (08/17/2024 3:36 PM MANAGER COLLEGE) Only the most recent of3 resultswithin the time period is included. Narrative [facility] [place] [address] - 08/17/2024 3:36 PM MANAGER COLLEGE Please see progress note in Epic for results. Stiven Brody MD DIAGNOSTIC IMAGING O RDERABLES [facility] [address] * ETT LINE PERFORMABLE (04/16/2024 11:22 AM CDT) Narrative Alice Mills APRN-CRNA - 04/16/2024 11:22 AM CDT Alice Mills APRN-CRNA ? 04/16/2024 11:23 AM Endotracheal Tube Placement: ? Patient Location: OR. Intubation Event Date/Time: ??04/16/2024 11:03 AM Procedure: intubation ([id number]) Procedure Section: ?? Sedation: under general anesthesia. Indications for Airway Management: ??anesthesia Procedure pretreatments used? ??No Induction: rapid sequence Patient Position: ??sniffing Mask Ventilation: not attempted. Blade Type: Video Blade Size: 3 Laryngoscopy View: grade 1 (full cords) Intubation Adjuncts: video laryngoscope Tube: endotracheal tube Placement: oral Tube type: cuff - inflated Tube Size (MM): 7 Depth of Insertion (CM): 22 Measured From: teeth Cuff volume (mL): ??8 Cuff Inflated With: air Number of Attempts: 1. Placement Verified By: direct visualization, bilateral breath sounds, chest auscultation and CO2 monitor Tube secured with: ??adhesive tape. Dentition unchanged? ??Yes Difficult Airway? ??No. Procedure Start Time: 04/16/2024 11:03 AM. Staff Section ? Anesthesia Provider: Alice Mills APRN-CRNA, Performed the procedure Diamond Fraire MD GENERAL ANESTHESI A ORDERABLES * Neuraxial Block (04/16/2024 11:14 AM CDT) Narrative Alice Mills APRN-CRNA - 04/16/2024 11:14 AM CDT Alice Mills APRN-CRNA ? 04/16/2024 11:15 AM Neuraxial Block Note ?? Pre-Procedure: ?? Procedure Name: ??Neuraxial Block Patient Location: ??OR Indications: ??surgical anesthesia Pre-Anesthetic Checklist: ??Patient identified, IV Checked, Risks and benefits discussed, Surgical consent verified, Monitors and equipment, Site examined, Pre-op evaluation done, Time-out performed, Informed consent obtained, Questions answered/anesthesia questions answered and Allergies reviewed Supplemental O2: ??room air Monitors: ??BP and continuous pluse ox Patient Condition: ??sedated, meaningful contact maintained throughout procedure Patient Sedated? ??Yes Procedure: ?? Block Type: ??Spinal Prep: ??Betadine Sterile Field: ??mask, cap/hat, sterile established and sterile gloves Approach: ??midline Skin was localized? ??Yes Spinal Block: ?? Needle Type: ??spinal needle Needle Gauge: ??22 Needle Length: ??90 mm Placement Site: ??L3-4 Number of Attempts: ??2 CSF: ??free flow, aspiration before injection, aspiration during injection Degree of difficulty: ??none Procedure Tolerance: ??tolerated well ?? performed while the patient was sedated Sensory Level: ??T8 Position post procedure: ??supine Vital Signs: ??Vital signs monitored and stable throughout. ??See anesthesia record for details. Start Time: ??04/16/2024 10:45 AM End Time: ??04/16/2024 10:55 AM Total Time: ??10 Staff: ?? Anesthesia Provider: ??Alice Mills APRN-DIETARY AIDE COOK ?? - ?? performed the procedure Diamond Fraire MD GENERAL ANESTHESI A ORDERABLES * (ABNORMAL) CBC W AUTO DIFFERENTIAL (04/16/2024 9:02 AM CDT) Only the most recent of2 resultswithin the time period is included. WBC 5.1 4.0 - 10.7 x10E9/L 04/16/2024 9:27 AM CDT [facility] RBC Count 4.28 3.90 - 5.20 x10E12/L 04/16/2024 9:27 AM CDT [facility] Hemoglobin 13.5 11.9 - 15.8 g/dL 04/16/2024 9:27 AM CDT [facility] Hematocrit 40.5 34.8 - 46.1 % 04/16/2024 9:27 AM CDT [facility] MCV 94.6 80.0 - 98.0 fL 04/16/2024 9:27 AM CDT [facility] MCH 31.5 26.7 - 33.6 pg 04/16/2024 9:27 AM CDT [facility] MCHC 33.3 31.7 - 36.3 g/dL 04/16/2024 9:27 AM CDT [facility] RDW-CV 12.9 11.3 - 14.8 % 04/16/2024 9:27 AM CDT [facility] Platelet Count 200 150 - 420 x10E9/L 04/16/2024 9:27 AM CDT [facility] MPV 11.1 7.8 - 11.4 fL 04/16/2024 9:27 AM CDT [facility] Neutrophil % 70.2 41.0 - 74.0 % 04/16/2024 9:27 AM CDT [facility] Lymphocyte % 18.4 17.0 - 47.0 % 04/16/2024 9:27 AM CDT [facility] Monocyte % 8.4 3.0 - 11.0 % 04/16/2024 9:27 AM CDT [facility] Eosinophil % 2.0 0.0 - 7.0 % 04/16/2024 9:27 AM CDT [facility] Basophil % 0.6 0.0 - 1.6 % 04/16/2024 9:27 AM CDT [facility] Immature Granulocytes % 0.4 0.0 - 1.0 % 04/16/2024 9:27 AM CDT [facility] Neutrophil Absolute 3.59 1.60 - 7.50 x10E9/L 04/16/2024 9:27 AM CDT [facility] Lymphocyte Absolute 0.94(L) 1.00 - 4.40 x10E9/L 04/16/2024 9:27 AM CDT [facility] Monocyte Absolute 0.43 0.15 - 1.00 x10E9/L 04/16/2024 9:27 AM CDT [facility] Eosinophil Absolute 0.10 0.00 - 0.60 x10E9/L 04/16/2024 9:27 AM CDT [facility] Basophil Absolute 0.03 0.00 - 0.13 x10E9/L 04/16/2024 9:27 AM CDT [facility] Blood BLOOD SPECIMEN / Unknown Venipuncture / Unknown 04/16/2024 9:02 AM CDT 04/16/2024 9:21 AM CDT Diamond Fraire MD LAB - HEMATOLOGY ORDERABLES Performing Organization Address [facility] [address]/[facility] Co de Phone Number [facility] [address] [place] [phone] * EKG 12-LEAD (12/23/2023 10:16 AM CDT) Ventricular Rate 62 BPM [facility] Atrial Rate 62 BPM [facility] P-R Interval 190 ms [facility] QRS Duration ms 76 ms [facility] Q-T Interval ms 424 ms [facility] QTC Calculation (Bezet) 430 ms [facility] Calculated P [place] 53 degrees [facility] Calculated R [place] -20 degrees [facility] Calculated T [place] -11 degrees [facility] Interpretation EKG Normal sinus rhythm Minimal voltage criteria for LVH, may be normal variant ( R in aVL ) Possible Anterior infarct , age undetermined No previous ECGs available Confirmed by KELLEY HICKMAN, SHAYLEE CALDERON ([id number]) on 12/23/2023 11:12:51 AM [facility] 12/23/2023 10:1 6 AM CDT 12/23/2023 11:12 AM CDT Gail Oliveira DO ECG ORDERABLES Performing Organization Address [facility] [address]/[facility] de Phone Number [facility] * (ABNORMAL) COMPREHENSIVE METABOLIC PANEL (12/23/2023 10:06 AM CDT) Glucose 111(H) 70 - 105 mg/dL 12/23/2023 10:43 AM CDT [facility] Sodium 140 136 - 145 mmol/L 12/23/2023 10:43 AM CDT [facility] Potassium 4.0 3.5 - 5.1 mmol/L 12/23/2023 10:43 AM CDT [facility] Chloride 109(H) 98 - 107 mmol/L 12/23/2023 10:43 AM CDT [facility] CO2 24 22 - 29 mmol/L 12/23/2023 10:43 AM CDT [facility] Calcium 9.7 8.4 - 10.4 mg/dL 12/23/2023 10:43 AM CDT [facility] Anion Gap 7 6 - 16 mmol/L 12/23/2023 10:43 AM CDT [facility] BUN 14 7 - 26 mg/dL 12/23/2023 10:43 AM CDT [facility] Creatinine 0.90 0.57 - 1.11 mg/dL 12/23/2023 10:43 AM CDT [facility] Alkaline Phosphatase 74 40 - 150 U/L 12/23/2023 10:43 AM CDT [facility] ALT 16 0 - 55 U/L 12/23/2023 10:43 AM CDT [facility] AST 19 5 - 34 U/L 12/23/2023 10:43 AM CDT [facility] Protein Total 7.6 6.4 - 8.3 gm/dL 12/23/2023 10:43 AM CDT [facility] Albumin 4.0 3.4 - 5.0 gm/dL 12/23/2023 10:43 AM CDT [facility] Bilirubin Total 0.6 0.2 - 1.2 mg/dL 12/23/2023 10:43 AM CDT [facility] eGFR by CKD-EPI 65(L) >=90 mL/min/1.7 3 m2 12/23/2023 10:43 AM CDT [facility] Blood BLOOD SPECIMEN / Unknown Venipuncture / Unknown 12/23/2023 10:06 AM CDT 12/23/2023 10:14 AM CDT Ladonnajt Klinejuany DIRECTOR OF CHILD WELFARE SERVICES-FLUME MAKER LAB - CHEMI STRY ORDERABLES [facility] [address] [place] [address] Care Teams Meteorology Teacher Relationship Specialty Start Date End Date Radha Jay MD [address] [place] [id number] PCP - General Family Medicine 11/12/23 [place] [id number] [facility] [address] [place], [place] [id number] Surgeon Orthopedic Surgery 11/12/23
--- OUTSIDE RECORDS SUMMARY | 2024-09-21 13:45 | XMS_ITS | Referral Summary ---
Author Organization [facility] at the Medical Office Building Address [address] [place] [id number] Care Team Providers Care Retail Sales Teammate Name Role Phone Pavel FerreraCristo DO Unavailable [phone] Denny Denney MD Unavailable [phone] Gail Brice MD Unavailable [phone] Aarti Starks MD Primary Care Provider [phone] Encounters Date Type Department Care Team Description 08/25/2024 Orders Only [facility] Diabetes and Endocrinology [address] [place] [phone] Sri Noble NP Postoperative hypothyroidism (Primary Dx) 08/24/2024 11:46 AM TRAFFIC MONITOR SPECIALIST - 08/24/2024 11:59 PM TRAFFIC MONITOR SPECIALIST Hospital Encounter [place] [id number] Postoperative hypothyroidism Discharge Disposition: Discharge to home or self care 08/24/2024 11:45 AM TRAFFIC MONITOR SPECIALIST Lab [facility] Outpatient Lab at [address] [phone] Hyperlipidemia, unspecified (Primary Dx) 08/24/2024 11:00 AM TRAFFIC MONITOR SPECIALIST Office Visit [facility] Diabetes and Endocrinology [address] [place] [phone] Sri Noble NP Postoperative hypothyroidism (Primary Dx) from Last 3 Months Allergies [...] daily 90 tablet 3 12/14/19 23 Active xedfw-6-lgd-epa-dp a-fish oil 1,050-1,200 mg capsule Take 1 [...] and Sundays 40 tablet 6 12/04/19 24 024 Discontin ued(Reord er) metoclopramide (REGLAN) 5 mg tablet TAKE 1 TABLET BY MOUTH EVERY 6 HOURS NEEDED FOR VOMITING 06/24/20 24 Discontin ued(Alter leann therapy) sucralfate (CARAFATE) 1 gram tablet TAKE 1 TABLET BY MOUTH BEFORE MEALS AND AT BEDTIME 06/24/20 24 Discontin ued(Thera py completed ) methylPREDNISolone (MEDROL DOSEPACK) 4 mg Dosepack FOLLOW PACKAGE DIRECTIONS 07/27/20 24 Discontin ued(Thera py completed ) Synthroid 25 [...] 0(cTis (DCIS), cN0, cM0, ER: Not Assessed, MT: Not Assessed, HER2: Not Assessed) - Signed by Gail Brice MD on 01/02/2023 Malignant neoplasm of upper- outer quadrant of right breast in female, estrogen receptor positive 12/14/2022 Cancer Staging:Clinical stage from 01/02/2023:Stage IA(cT1b, cN0, cM0, G1, ER+, MT+, HER2-) - Signed by Gail Brice MD on 01/02/2023 Pathologic stage from 02/13/2023:Stage Unknown(pT1b, pNX, G1, ER+, MT+, HER2-) - Signed by Gail Brice MD [...] 06/03/2020 Assessment & Plan (07/05/2020 10:24 AM TRAFFIC MONITOR SPECIALIST): Preoperative examination Procedure: cataract Date: 07/05 & 07/12 Surgeon: Dr. Nash Risk of procedure: low RCRI: Class II risk, 6 % 30d risk of , VA or cardiac arrest METs: moderate Personal or family hx of problems with anesthesia: no Medical History / Risk factors: ?? Cardiovascular disease (VA, angina, arrhythmia, HF): no ?? Lung disease [...] risk, 6 % 30d risk of , VA or cardiac arrest METs: moderate Personal or family hx of problems with anesthesia: no Medical History / Risk factors: ?? Cardiovascular disease (VA, angina, arrhythmia, HF): no ?? Lung disease [...] 05/03/2020 Assessment & Plan (08/24/2024 11:37 AM TRAFFIC MONITOR SPECIALIST): Chronic problem. Currently taking Levothyroxine 25mcg daily after issues w/hyperthyroid & labs via PCP at [place]. Reviewed medication scheduling: aware to take 1st [...] magnesium, declines additional medications Diverticulitis of colon 04/21/2015 090 03/2020 Immunizations Name Administration Dates Next Due Influenza, Unspecified 09/07/2022(Deferred: Julia ent Refused) Moderna SARS-CoV-2 Monovalen t Vaccination (12+ YRS) 11/20/2020,10/23/2020 Pneumococcal Conjugate PCV 13 06/08/2021 Pneumococcal Polysaccharide PPV23 06/03/2020 Social History Tobacco Use Types Packs/Day Years [...] on file Legal Sex Female 12:15 AM TRAFFIC MONITOR SPECIALIST Gender Identity Not on file Sexual Orientation Not on file Last Filed Vital Signs Vital Sign Reading Time Taken Comments Blood Pressure 132/74 08/24/2024 11:34 AM TRAFFIC MONITOR SPECIALIST Pulse 70 08/24/2024 10:59 AM TRAFFIC MONITOR SPECIALIST Temperature 36.4 ??C (97.5 ??F) 02/22/2024 9:37 AM CD T Respiratory Rate 16 08/24/2024 10:59 AM TRAFFIC MONITOR SPECIALIST Oxygen Saturation 97% 02/22/2024 1:17 PM CDT Inhaled Oxygen Concentration - - Weight 72.6 kg (160 lb) 08/24/2024 10:59 AM TRAFFIC MONITOR SPECIALIST Height 162.6 cm (5' 4.02 ) 08/24/2024 10:[address] Body Mass Index 27.45 08/24/2024 10:59 AM TRAFFIC MONITOR SPECIALIST Plan of Treatment Not on file Medical Devices Implanted Type Area Suction Drum Drier Operator Device Identifier Shelf Expiration Date Model / Serial / Lot Hologic Limited Partnership Marker Biospy Site Top Hat Shape Senomark [id number] - [id number] Implanted:Qty: 1 on 12/14/2022 by Denny Denney MD at [facility] Left: Breast [employer] Partnership [id number] 06/19/2023 SMARK-YOKO ERO-2S / / [id number] Hologic Limited Partnership Marker Biospy Site Mini Cork Shape Securmark rk-[id number] - [id number] Implanted:Qty: 1 on 12/14/2022 by Denny Denney MD at [facility] Clip Hologic Limited Partnership [id number] 04/03/2023 SMARK-YOKO ERO / / [id number] [employer]ourcing [employer] [place] 20ga 5cm Reposition J Curve Wire Centimeter Alex Stabilizer [id number] - [id number] Implanted:Qty: 1 on 01/07/2023 by Richar Syed MD at [facility] [employer] [id number] 10/12/2027 [id number] / / [id number] [employer] [place] 20ga 5cm Reposition J Curve Wire Centimeter Alex Stabilizer [id number] - [id number] Implanted:Qty: 1 on 01/07/2023 by Richar Syed MD at [facility] Left: Breast [employer] [id number] 10/12/2027 [id number] / / [id number] Ethicon Endo Surgery Ligaclip Extra 6.2mm Ligate Open Large Clip Internal Titanium Latex Free Lt400 - [id number] Implanted:Qty: 5 on 01/07/2023 by Denny Denney MD at [facility] Left: Breast Ethicon Endo Surgery LT400 / / Ethicon Endo Surgery Ligaclip Extra 6.2mm Ligate Open Large Clip Internal Titanium Latex Free Lt400 - [id number] Implanted:Qty: 4 on 01/07/2023 by Denny Denney MD at [facility] Right: Breast Ethicon Endo Surgery LT400 / / Procedures Procedure Name Priority Date/Time Associated Diagnosis Comments TSH Routine 08/24/2024 11:46 AM TRAFFIC MONITOR SPECIALIST Postoperative hypothyroidism T4, FREE Routine 08/24/2024 11:46 AM TRAFFIC MONITOR SPECIALIST Postoperative hypothyroidism T4, FREE Routine 08/17/2024 12:12 PM TRAFFIC MONITOR SPECIALIST Postoperative hypothyroidism TSH Routine 08/17/2024 12:12 PM TRAFFIC MONITOR SPECIALIST Postoperative hypothyroidism DEXA AXIAL SKELETON BONE DENSITY 1 OR MORE SITES Schedule Routine, Read Routine (OP Routine) 10/25/2022 3:53 PM TRAFFIC MONITOR SPECIALIST At high risk for fracture Post-menopausal COLONOSCOPY 10/11/2022 9:13 AM TRAFFIC MONITOR SPECIALIST HEPATITIS C ANTIBODY Routine 05/10/2020 8:20 AM CDT Annual physical exam Need for hepatitis C screening test from Last 3 Months or Most Recently Relevant to Health Maintenance Results * (ABNORMAL) TSH (08/24/2024 11:46 AM TRAFFIC MONITOR SPECIALIST) Thyroid Stimulating Hormone 0.09(L) 0.30 - 4.20 mcIUnit/mL Blood 08/24/2024 11:4 6 AM TRAFFIC MONITOR SPECIALIST 08/24/2024 8:20 PM TRAFFIC MONITOR SPECIALIST us Sri Noble NP LAB BLOOD ORDERABLES Rachel l Result Performing Organization Address [facility] Co mi Phone Number JOHN [address] [address] Department [place] [address] * T4, free (08/24/2024 11:46 AM TRAFFIC MONITOR SPECIALIST) Free T4 1.41 0.90 - 1.70 ng/dL Blood 08/24/2024 11:4 6 AM TRAFFIC MONITOR SPECIALIST 08/24/2024 8:20 PM TRAFFIC MONITOR SPECIALIST us Sri Noble DISTRICT OPERATIONS MANAGER LAB BLOOD ORDERABLES Rachel l Result Performing Organization Address City/[facility] de Phone Number JOHN [address] [address] Department [place] [address] * (ABNORMAL) TSH (08/17/2024 12:12 PM TRAFFIC MONITOR SPECIALIST) Scribed TSH 0.02(A) 0.47 - 4.68 mcU/mL EXTERNAL LAB Blood 08/17/2024 12:1 2 PM TRAFFIC MONITOR SPECIALIST Sri Noble DISTRICT OPERATIONS MANAGER LAB BLOOD ORDERABLES Rachel l Result Performing Organization Address [facility] de Phone Number EXTERNAL LAB * T4, free (08/17/2024 12:12 PM TRAFFIC MONITOR SPECIALIST) SCRIBED T4, Free 1.37 0.78 - 2.19 mcg/dL EXTERNAL LAB Blood 08/17/2024 12:1 2 PM TRAFFIC MONITOR SPECIALIST Sri Noble DISTRICT OPERATIONS MANAGER LAB BLOOD ORDERABLES Rachel l Result Performing Organization Address [facility] de Phone Number EXTERNAL LAB * Dexa Axial Skeleton Bone Density 1 or 2 Site (10/25/2022 3:53 PM TRAFFIC MONITOR SPECIALIST) Anatomical Region Laterality Modality Body N/A Mammography 10/25/2022 10:1 6 PM TRAFFIC MONITOR SPECIALIST Narrative 10/25/2022 10:17 PM TRAFFIC MONITOR SPECIALIST EXAM DESCRIPTION: ?? DEXA AXIAL SKELETON BONE DENSITY 1 OR MORE SITES REASON FOR STUDY: ?77 y/o ?? year old ?? F ??with given history of screening. ?? Postmenopausal Suction Drum Drier Operator/Model: ?? [employer] Horizon A ([id number]/N [id number]) CLINICAL INFORMATION: Current height: ??64.5 ??inches ? [...] PM T: ??10/25/2022 10:17 PM Report ID: [id number] Reading Location: ??[id number] Procedure Note Denny Estrada MD - 10/25/2022 EXAM DESCRIPTION: DEXA AXIAL SKELETON BONE DENSITY 1 OR MORE SITES REASON FOR STUDY: 77 y/o year old F with given history ofscreening. Postmenopausal Suction Drum Drier Operator/Model: Hologic Horizon A (S/N [id number]) CLINICAL INFORMATION: Current height: 64.5 inches Maximum [...] Denny Estrada M.D. MF: ASAD Report ID: [id number] Reading Location: [id number] us Radha Jay MD IMG DXA PROCEDURE S Final Result * COLONOSCOPY (10/11/2022 9:13 AM TRAFFIC MONITOR SPECIALIST) Anatomical Region Laterality Modality Other Narrative Procedure Note Jacob Deras, DO - 10/11/2022 9:13 AM CST [facility] ENDOSCOPY Patient Name: Neli Boswell Procedure Date: 10/11/2022 9:13 AM Date of : 1945 Admit Type: Outpatient Age: 77 Gender: Female Attending MD: Jacob Deras D.O. Room: [facility] ENDOSCOPY ROOM 05 Note Status: Finalized Procedure: [...] medications. - Repeat colonoscopy in 10 years forsurveillance. Jacob Deras D.O. 10/11/2022 10:03:19 AM Number of Addenda: 0 Note Initiated On: 10/11/2022 9:13 AM Recognized by the [employer] for promoting quality in endoscopy Jacob Deras DO ENDOSCOPY PROCEDURES Fin al Result * Hepatitis C antibody (05/10/2020 8:20 AM CDT) Hep C Ab NONREACT NONREACTIVE [facility] Comment: Siemens TelcareaurXP using BRIJESH (chemiluminescent immunoassay) technology. NONREACTIVE: Antibodies [...] LAB MICROBIOLOGY - GENERAL ORDERABLES Final Result [address] [address], [facility] [phone] from Last 3 Months or Most Recently Relevant to Health Maintenance Insurance MEDICARE SOLUTIONS MEDICARE SOLUTIONS MEDICARE SOLUTIONS Advance Directives For more information, please contact: [phone] * Full Code (Latest Code Status on File) Date Activated Date Inactivated Comments 01/07/2023 1:47 PM 01/07/2023 9:15 PM * Full Code Date Activated Date Inactivated Comments 08/28/2022 6:07 PM 08/29/2022 6:09 PM Care Teams Retail Sales Teammate Relationship Specialty Start Date End Date Aarti Starks MD [address] [place] [address] PCP - General Family Medicine 08/24/24 Pavel Ferrera DO [address] [place] [address] MEDICAL ONCOLOGY, [facility] [address] [place] [address] Medical Oncologist/Hematologis t Hematology and Oncology 12/26/22 Denny Denney MD [address] [place] [address] [address] [place], [place] [id number] Surgeon General Surgery 12/26/22 Gail Brice MD [address] [place] [address] [address] [place], [place] [address] Radiation Oncologist Radiation Oncology 10/24/23
--- OUTSIDE RECORDS SUMMARY | 2024-09-21 13:45 | XMS_ITS | Continuity of Care Document ---
Author Organization [facility] Address [address] [place] [address] Phone Care Team Providers Care Cuff Setter Overlock Name Role Phone Megan Wills MD Unavailable Unavailabl e Results Test Name Date and Time Measure Units Reference Range Abnormal Flag Status Comments Panel Description: STOOL CARDS - DIAGNOSTIC Unk nown OCCULT1 00:00:00 neg Unknown Advance Directives Directive Yes / No Effective Date File Name No Information Encounters Encounter Description Practice Location Reason(s) For Visit Diagnoses Date Provider Providers Copied on Encounter [facility], [address], [place], [place], [id number], tel:[phone] [place] HX-CIRCULATORY DIS NOSSCREEN MAL NEOP-RECTUMCOUGHH X OF BREAST MALIGNANCYNAUSEA ALONE 0-[address] [place], [place], [id number]. tel:[phone] Family History Family Member Type Diagnosis Age At Onset No Information Payers Payer name Insurance type Covered constitution party ID Authoriza tion(s) No Information Social History Type Description Quantity Date Captured Comments Sex Female Smoking Status No Information Vital Signs Date / Time: Height Weight BMI Pulse Rate Blood Pressure Temperature Respiratory Rate Body Surface Area Head Circumference Head Circ. Percentile Wt./Harry. Percentile BMI percentile Pulse Ox Inhaled Ox 5:41 PM 66.00 in 155.00 lbs 25.0 2 kg/m eter (2) 76 /min 128/80 mm[Hg] Chief Complaint And Reason For Visit No Information Reason For Referral Reason For Referral No Information History Of Present Illness Encounter Date Complaint History Of Prese nt Illness No Information Functional Status Date Functional Assessmen t No Information Instructions Date Instruction Additional Infor mation No Information Assessments Type Assessment Date No Information Patient Care Teams Name Effective Dates (start - stop) Status Members No Information
[2024-09-21 14:25] LABS: CRP < 0.5 mg/dL (<1.0)
[2024-09-21 14:37] LABS: Erythrocyte Sedimentation Rate 15 mm/hr (0-20)
== END 2024-09-21 13:03 | disposition home or self-care (01) ==
LOC: ANHLAB 13:04
PROVIDERS: PCP Family Medicine; Visit Provider Nurse Practitioner Adult Health
DX: Z47.1 Aftercare following joint replacement surgery (principal); Z96.652 Presence of left artificial knee joint
CPT/HCPCS: 36415; 85652; 86140

== ENCOUNTER 2024-10-27 09:50 | Outpatient (CLI) | payer MEDICARE, SELFPAY | END 2024-10-27 09:51 | disposition home or self-care (01) | LOC: GOSHIMG 09:50 | PROVIDERS: PCP Family Medicine; Visit Provider Nurse Practitioner | DX: M75.101 Unspecified rotator cuff tear or rupture of right shoulder, not specified as traumatic (principal) | CPT/HCPCS: 73221 ==